=== PATIENT | male | born 1965 | race Caucasian/White ===

== ENCOUNTER 2019-02-11 19:59 | Inpatient (IN) | payer SELFPAY ==
[2019-02-11] VITALS (7 sets, daily range): BP systolic 155–214; BP diastolic 97–115; PULSE 96–130; RESP 18–24; TEMP 37.7–39.7; O2SAT 95–100; BMI 48.0
--- NOTE | 2019-02-11 20:22 | RAD_ITS ---
STUDY: X-RAY CHEST REASON FOR EXAM: Male, 53 years old. Fever. Shortness of breath. TECHNIQUE: Single AP portable view of the chest. COMPARISON: June 14, 2015. FINDINGS: Telemetry wires overlie the chest. The lungs are well expanded. There is no acute infiltrate or mass. There is no demonstrated pleural abnormality. Normal size heart. Normal mediastinum and christi. Normal visualized pulmonary arteries. Normal visualized aortic arch and descending thoracic aorta. The thoracic spine is obscured by the mediastinum. Normal visualized ribs, clavicles, and shoulders. There is no demonstrated abnormality of the visualized soft tissue structures of the upper abdomen. RAD/Chest 1 View (Portable) IMPRESSION: No acute cardiopulmonary disease or interval change. Electronically Signed: Leno Jay DO at 20:47 EDT Tel [phone], Service support ,
--- NOTE | 2019-02-11 20:22 | EKG12_ITS ---
Test Reason : SOB Blood Pressure : / mmHG Vent. Rate : 111 BPM Atrial Rate : 111 BPM P-R Int : 142 ms QRS Dur : 076 ms QT Int : 326 ms P-R-T Axes : 042 014 078 degrees QTc Int : 443 ms Sinus tachycardia Possible Left atrial enlargement Borderline ECG Confirmed by JA CARRIZALES, LEE ([id number]), editor sound VITALY GONGORA ([id number]) on 02/15/2019 11:34:39 AM Referred By: Lee Pennington Confirmed By:LEE PERES MD
[2019-02-11] MEDS: Ipratropium/Albuterol Sulfate 3 ML AMPUL.NEB INHALATION (20:36)
[2019-02-11] MEDS: Acetaminophen 500 MG Tablet 1000 MG PO (20:46)
[2019-02-11] MEDS: 0.9% Normal Saline 1,000 ML 150 ML IV (20:47)
--- NOTE | 2019-02-11 21:22 | ED.VISSUMM ---
- ER Visit Summary Date of Service: 02/11/19 Chief Complaint: Short of breath History of Present Illness: The patient is a 53 M who reports leg swelling and weeping along with shortness of breath for quite some time. Today he had increased cough, nausea and vomiting, and fever. Patient reports a history of reflux disease and hypertension. He does not take any of his prescribed medications. He denies smoking. He does drink 12 pack a day. His last drink was yesterday. Physical Examination: Blood pressure is 203/115, temperature 103.5 TA, heart rate 121, respiratory rate 24, pulse ox 98% on room air. Patient sitting upright in bed no acute distress. He appears ill but not toxic. Head neck examination grossly unremarkable. Heart is tachycardic. Lungs sounds are diminished throughout. Abdomen is soft and distended. No focal tenderness. Lower extreme examination was 3-4+ edema with dry cracked skin and localized wound to each leg. No drainage at this time. Test Results: Portable chest x-ray shows no acute disease. Bilateral tib-fib x-rays show soft tissue swelling. There is no bony change. No gas in the tissues. EKG is sinus tach at 111 with no sign of acute ischemia. CBC reveals white count 11.9 with 90% neutrophils. Platelet count is 109,000. Chemistry studies show sodium of 131. LFTs show total bili 1.4 and a direct bili 0.45. Alk phos is 133. AST is 42. Lipase and coags normal. Lactate is normal at 1.9. Influenza swab is negative. Blood cultures were sent. Emergency Department Course and Treatment: Patient was given Tylenol for fever along with a DuoNeb treatment. He is on nasal cannula at this time for comfort. He is given 20 mg of IV labetalol and repeat blood pressure is 177/97. He is given a dose of IV clindamycin for his legs and given 0.5 mg of Ativan as he is a regular drinker and has not had a drink in 24 hours. At this time patient is having difficulty getting around secondary to the swelling in his legs. He will be admitted overnight for wound care and blood pressure control. Treatment Plan: [] Disposition: Admit Impression: 1. Bilateral lower extremely wounds 2. Hypertensive urgency 3. Fever This note was generated with [employer] dictation software. It may contain incorrect words, spelling, and punctuation that were not noted in review of the chart prior to signing ED Disposition - Plan for ED Patient: Referrals: Care Physician,No Primary [Primary Care Provider] -
[2019-02-11 21:27] LABS: International Normalized Ratio 1.1; Prothrombin Time (Protime)PT. 14.2 SECONDS (11.7-14.9)
[2019-02-11 21:28] LABS: Partial Thromboplast Time 29.3 Seconds (24.1-36.2)
[2019-02-11 21:33] LABS: Absolute Neutrophil Count 10.8 X10^3/uL (2.0-7.7); Basophil# 0.02 X10^3/uL; Basophil% 0.2 % (0-1); Eosinophil# 0.06 X10^3/uL; Eosinophils% 0.5 % (0-5); Hematocrit 42.2 % (40-54); Hemoglobin 14.4 g/dl (13.0-16.5); Lymphocyte % 4.2 % (19-41); Mean Corp Hgb Conc 34.1 g/gl (32-36); Mean Corpuscular Hgb 30.8 pg (27.0-32.0); Mean Corpuscular Volume 90.4 fL (80-94); Mean Platelet Vol. 9.2 fl (6.2-12.0); Monocyte# 0.53 X10^3/uL; Monocyte% 4.4 % (0-10); Neutrophil # 10.79 X10^3/uL (2.7-7.7); Neutrophil % 90.4 % (47-70); Platelet Count 109 K/mm3 (150-450); RBC Distribution Width CV 13.2 % (11.6-14.6); RBC Distribution Width SD 43.2 fl (35.1-43.9); Red Blood Count 4.67 M/mm3 (4.6-6.2); White Blood Count 11.9 K/mm3 (4.4-11.0)
[2019-02-11 21:34] LABS: AST(SGOT) 42 U/L (15-37); Alanine Aminotransfer ALT/SGPT 48 U/L (16-61); Albumin, Serum 3.8 g/dL (3.2-5.0); Alkaline Phosphatase 133 U/L (45-117); Anion Gap 6 (5-15); BUN 10 mg/dL (7-18); BUN/Creat Ratio 8.8 RATIO (10-20); Bilirubin, Direct 0.45 mg/dL (0.00-0.30); Calcium,Total 8.8 mg/dL (8.5-10.1); Chloride 98 mmol/L (98-107); Creatinine, Serum 1.14 mg/dL (0.70-1.30); Differential Indicated SCAN CRITERIA MET; EST Glomerular Filtration Rate 71 mL/min (>60); Est Glom Filt Rate - Afr Amer 86 mL/min (>60); Estimated Creatinine Clearance 62.03 ml/min; Globulin 4.1 g/dL (2.2-4.2); Glucose 113 mg/dL (74-106); Lipase 98 U/L (73-393); POSITIVE COUNT NO; POSITIVE DIFFERENTIAL YES; POSITIVE MORPHOLOGY NO; Potassium 4.4 mmol/L (3.5-5.1); Protein, Total 7.9 g/dL (6.4-8.2); Sodium Level 131 mmol/L (136-145)
--- NOTE | 2019-02-11 21:34 | RAD_ITS ---
STUDY: X-RAY - RIGHT TIBIA AND FIBULA REASON FOR EXAM: Male, 53 years old. Infection. The mid leg with cellulitis. TECHNIQUE: 3 view(s) of the tibia and fibula were obtained. COMPARISON: None. FINDINGS: Normal visualized tibia. Normal visualized fibula. There is no acute fracture, dislocation or destructive osseous pathology. There are degenerative changes knee. The ankle appears intact. There is diffuse soft tissue edema without foreign body. RAD/Tibia & Fibula 2 Views IMPRESSION: Soft tissue edema without underlying osseous or articular abnormality. Electronically Signed: Leno Jay DO at 22:05 EDT Tel [phone], Service support ,
--- NOTE | 2019-02-11 21:34 | RAD_ITS ---
STUDY: X-RAY - LEFT TIBIA AND FIBULA REASON FOR EXAM: Male, 53 years old. Infection in the mid leg. Cellulitis. TECHNIQUE: 3 view(s) of the tibia and fibula were obtained. COMPARISON: None. FINDINGS: Normal visualized tibia. Normal visualized fibula. There is no acute fracture, dislocation or destructive osseous pathology. The knee and ankle appear intact. There is diffuse subcutaneous edema over the leg. There is no opaque foreign body. RAD/Tibia & Fibula 2 Views IMPRESSION: Soft tissue edema over the lower leg without underlying osseous or articular abnormality. Electronically Signed: Leno Jay DO at 22:04 EDT Tel [phone], Service support ,
[2019-02-11] MEDS: LORazepam 2 MG/ML Syringe 0.5 MG IV (21:40)
[2019-02-11 21:54] LABS: Lactic Acid 1.9 mmol/L (0.4-2.0)
[2019-02-11 22:00] LABS: Differential Comment SCANNED
--- NOTE | 2019-02-11 22:56 | PCM.HP.STD ---
Problem List (1) Shortness of breath Status: Acute (2) Elevated blood pressure Status: Acute (3) Hyponatremia Status: Acute (4) Alcohol abuse Status: Chronic (5) Venous stasis dermatitis Status: Acute Qualifiers: Laterality: bilateral Qualified Code(s): I87.2 - Venous insufficiency (chronic) (peripheral) History of Present Illness Date of Admission: 02/11/19 Chief Complaint: shortness of breath The patient is a 53 year old male patient presents to the ER with shortness of breath. He states he has been experiencing shortness of breath for the past several weeks however, today it became worse. He has not been to a doctor in several years. He has chronic conditions that have not been treated including lower extremity swelling and seepage of his legs with chronic appearing sores. He drinks 12-15 beers daily for as long as he can remember and does experience withdrawal symptoms when he stops, his last beer was yesterday. Today he is hypertensive and short of breath requiring oxygen to maintain his pulse oxygenation above 90%. He denies chest pain but he has had nausea. WBC count is 11,000 with a left shift and CXR is negative for pneumonia.He will be admitted to PCU floor for respiratory support and wound care management. He will be placed on alcohol withdrawal protocol. Past Medical History Past Medical History (Chronic Problems): Chronic Problems Alcohol abuse (Chronic) Allergies No Known Allergies Allergy (Verified 02/11/19 20:03) Home Medications: Ambulatory Orders Medication Instructions Recorded NK 02/11/19 Surgical History: no surgical history Psychiatric History: No pertinent psych hx Smoking Status: Never smoker - *Family History Maternal History Items: Heart Disease Paternal History Items: Heart Disease Review of Systems Constitutional: Reports: Fever, Fatigue. Denies: Chills, Weight Change HEENT: Denies: Head Aches, Sinus Congestion, Sinus Drainage Cardiovascular: Denies: Chest Pain, Palpitations Respiratory: Reports: Cough, Shortness of breath at rest. Denies: Sputum production Gastrointestinal: Reports: Nausea. Denies: Abdominal Pain, Vomiting Genitourinary: Denies: Dysuria Musculoskeletal: Reports: Leg Pain. Denies: Joint Pain, Joint Tenderness Skin: Denies: Rash, Wounds Neurological: Denies: Numbness, Tingling, Focal weakness Psychiatric: Denies: Anxiety, Depression, Homicidal Ideations, Suicidal Ideations Hematologic/ Lymphatic: Denies: Easy Bruising, Easy Bleeding VTE Information - Inpt Only VTE Present on Admission: No VTE Mechan Device Prophylaxis: None VTE Pharm Prophylaxis ordered?: Yes Patient Problems: Active and Suspected Problems Shortness of breath (Acute) Venous stasis dermatitis (Acute) - Physical Exam General: Alert, Oriented x3, Cooperative HEENT: Atraumatic, Normocephalic Neck: Supple Lungs: Clear to auscultation, Diminished Cardiovascular: Regular rate, Normal S1, Normal S2, No murmurs Abdomen: Bowel Sounds Present, Soft, Non Tender, Obese Extremities: No edema, Capillary Refill Less than 3 Seconds Skin: Ulcer/ Wound - bilate lower ext 3 + edema with stasis dermatitis with central skin cracking/ulcer and serous drainage Musculoskeletal: Tenderness Neurological: Neuro grossly intact Psych/Mental Status: Normal Affect, Appropriate Vital Signs Temp Pulse Resp BP Pulse Ox 99.8 F H 100 18 177/97 H 98 02/11/19 22:00 02/11/19 22:00 02/11/19 22:00 02/11/19 22:00 02/11/19 22:00 Oxygen Flow Rate (L/min) 2 Oxygen Delivery Method Nasal Cannula Weight: 279 lb 15.793 oz Body Mass Index (BMI) 48.0 Microbiology Past 72 Hours 02/11/19 20:30 Influenza Types A,B Direct FA (SOCO) - Final Mucosa - Nasopharyngeal Laboratory Tests Past 24 Hrs 02/11/19 02/11/19 02/11/19 21:05 21:05 21:05 WBC 11.9 H RBC 4.67 Hgb 14.4 Hct 42.2 MCV 90.4 MCH 30.8 MCHC 34.1 RDW 13.2 RDW Differential 43.2 Plt Count 109 L MPV 9.2 Immature Gran % (Auto) 0.300 Neut % (Auto) 90.4 H Lymph % (Auto) 4.2 L [place] % (Auto) 4.4 Eos % (Auto) 0.5 Baso % (Auto) 0.2 Absolute Neuts (auto) 10.8 H Absolute Lymphs (auto) 0.50 L Total Counted Not Reportable Differential Comment SCANNED PT 14.2 INR 1.1 APTT 29.3 Sodium 131 L Potassium 4.4 Chloride 98 Carbon Dioxide 27.0 Anion Gap 6 BUN 10 Creatinine 1.14 Estim Creat Clear Calc 62.03 Est GFR (MDRD) Af Amer 86 Est GFR (MDRD) Non-Af 71 BUN/Creatinine Ratio 8.8 L Glucose 113 H Lactic Acid Calcium 8.8 Total Bilirubin 1.40 H Direct Bilirubin 0.45 H AST 42 H ALT 48 Alkaline Phosphatase 133 H Total Protein 7.9 Albumin 3.8 Globulin 4.1 Lipase 98 02/11/19 21:05 WBC RBC Hgb Hct MCV MCH MCHC RDW RDW Differential Plt Count MPV Immature Gran % (Auto) Neut % (Auto) Lymph % (Auto) [place] % (Auto) Eos % (Auto) Baso % (Auto) Absolute Neuts (auto) Absolute Lymphs (auto) Total Counted Differential Comment PT INR APTT Sodium Potassium Chloride Carbon Dioxide Anion Gap BUN Creatinine Estim Creat Clear Calc Est GFR (MDRD) Af Amer Est GFR (MDRD) Non-Af BUN/Creatinine Ratio Glucose Lactic Acid 1.9 Calcium Total Bilirubin Direct Bilirubin AST ALT Alkaline Phosphatase Total Protein Albumin Globulin Lipase Assessment/Plan All Active Problems Shortness of breath (Acute) Venous stasis dermatitis (Acute) Elevated blood pressure (Acute) Hyponatremia (Acute) Chest pain (Acute) Chronic Problems Alcohol abuse (Chronic) Plan 1. Shortness of breath- admit to PCU, levaquin 500mg IV q day, duoneb ing q 4 hrs continue oxygen protocol, repeat CBC, BMP in am, maintain IV normal saline at 100cc/ hr to assist with hyponatremia and dehydration 2. Alcohol abuse-- initiate alcohol withdrawal protocol- (he is not motivated to stop drinking.) 3. HTN- hydralazine 20mg IV q 6 hrs prn BP>160/100 4. Lower extremity edema- lasix 20mg IV q day, wound care team to assess 5. DVT prophylaxis- LMWH Code Visit Inpatient E&M: 08437 Init Hosp L3
[2019-02-12] VITALS (17 sets, daily range): BP systolic 139–162; BP diastolic 79–90; PULSE 71–92; RESP 18–22; TEMP 36.7–37.8; O2SAT 94–98; BMI 44.4; BMI 48.1
[2019-02-12] MEDS: levoFLOXacin IV 500 MG/100 ML BAG 100 MG IV (02:07)
[2019-02-12] MEDS: 0.9% Normal Saline 1,000 ML 100 ML IV (06:07)
[2019-02-12 06:45] LABS: Hematocrit 38.6 % (40-54); Hemoglobin 12.8 g/dl (13.0-16.5); Mean Corp Hgb Conc 33.2 g/gl (32-36); Mean Corpuscular Hgb 30.5 pg (27.0-32.0); Mean Corpuscular Volume 92.1 fL (80-94); Mean Platelet Vol. 9.4 fl (6.2-12.0); Platelet Count 118 K/mm3 (150-450); RBC Distribution Width CV 13.3 % (11.6-14.6); RBC Distribution Width SD 44.3 fl (35.1-43.9); Red Blood Count 4.19 M/mm3 (4.6-6.2); White Blood Count 16.3 K/mm3 (4.4-11.0)
[2019-02-12 06:47] LABS: Scan Indicated on CBC? Y/N NO
[2019-02-12 06:54] LABS: Anion Gap 9 (5-15); BUN 12 mg/dL (7-18); BUN/Creat Ratio 9.9 RATIO (10-20); Calcium,Total 8.7 mg/dL (8.5-10.1); Chloride 99 mmol/L (98-107); Creatinine, Serum 1.21 mg/dL (0.70-1.30); EST Glomerular Filtration Rate 66 mL/min (>60); Est Glom Filt Rate - Afr Amer 80 mL/min (>60); Estimated Creatinine Clearance 62.98 ml/min; Glucose 114 mg/dL (74-106); Potassium 4.7 mmol/L (3.5-5.1); Sodium Level 134 mmol/L (136-145)
[2019-02-12] MEDS: Folic Acid 1 MG Tablet PO (09:44)
[2019-02-12] MEDS: Enoxaparin 40 MG/0.4 ML Syringe SC (09:44)
[2019-02-12] MEDS: Thiamine Hydrochloride 100 MG Tablet PO ×2 (09:44→17:55)
--- NOTE | 2019-02-12 10:07 | NURSING ---
wound photo: left lower leg
--- NOTE | 2019-02-12 10:08 | NURSING ---
wound photo: right lower leg
[2019-02-12] MEDS: Cefazolin 2 GM in 0.9% Normal Saline 100 ML IV ×2 (11:03→21:41)
--- NOTE | 2019-02-12 11:30 | CASEMGMT ---
CHRISTINE BERKOWITZ assessment: Face to Face with patient for initial transition planning/care coordination assessment. CHRISTINE BERKOWITZ introduced self and role at [facility], pt voices understanding and consents to assessment at this time. Pt is sitting up in bed in no distress at this time. Pt is A/Ox4 at this time and answers all questions appropriately at this time. Care providers, pharmacy, and demographics verified at this time. PCP: Pt states does not have a PCP but would like a list of local PCP's and that is provided at this time. Specialists: Pt states no current specialists. [facility]erred [facility]acy: [facility] Insurance: Pt states that his employer does not offer health insurance and he has never had it. Prescription Benefit: None Living Will/HPOA: Pt states does not have LW/HPOA and declines info at this time. Pt states 'my daughter takes care of those things.' LNOK: Tanika Simmons, daughter Living Arrangements: Pt states lives in 2 story home with adult daughter and his father. Pt states no concerns at home at this time. Pt states is independent with ADL's. Transportation: Pt states that he does not drive that his friend drives him to and from work and pt states no transportation concerns at this time. DME/HHC: Pt states no current DME or need for any at this time. Pt states no hx of HHC or SNF in the past. Pt states no concerns with going home at time of discharge. 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 Pt states does not smoke but does drink 12-15 beers daily. Pt declines resources/assistance for alcohol abuse at this time. Pt states no further concerns/needs at this time. CM to follow for any further discharge planning/needs. Advised pt to ask for CM if any further questions/concerns/needs arise, voices understanding Plan: [place] CHRISTINE BERKOWITZ
--- NOTE | 2019-02-12 13:53 | ECHOCS_ITS ---
Reason For Study: SOB Procedure This was a 2D Doppler, Color Flow transthoracic echocardiogram. The study was technically difficult. Exam performed portable in patient room. Left Ventricle Normal size and thickness. The estimated ejection fraction is 65 %. Normal diastology for age. No regional wall motion abnormalities noted. Right Ventricle Normal size and thickness. Normal systolic function. Atria Normal left atrium. Normal right atrium. Normal atrial septum. Mitral Valve The mitral valve is structurally normal. No prolapse or stenosis seen. Tricuspid Valve Normal tricuspid valve. Unable to estimate RV systolic pressure due to inadequate jet, pulmonary artery pressure probably normal. Aortic Valve Normal aortic valve. Trisinus/trileaflet aortic valve. Pulmonic Valve The pulmonic valve is not well visualized. Great Vessels Normal aortic root. Normal arch. Normal inferior vena cava. Inferior vena cava collapse with respiration. Pericardium/Pleural No pericardial effusion. Medication Diluted definity 3ml given slow IV push to enhance endocardial definition. MMode/2D Measurements & Calculations LVIDd: 4.4 cm IVSd: 1.3 cm Ao root diam: 3.1 cm LVIDs: 2.9 cm LVPWd: 1.5 cm FS: 34.6 % LA dimension(2D): 4.2 cm Doppler Measurements & Calculations MV E max areli: 118.3 cm/sec Ao V2 max: 179.0 cm/sec LV V1 max: 113.5 cm/sec MV A max areli: 89.8 cm/sec Ao max P.8 mmHg LV V1 max P.2 mmHg MV E/A: 1.3 PA V2 max: 137.5 cm/sec Interpretation Summary The estimated ejection fraction is 65 %. Normal diastology for age. Unable to estimate RV systolic pressure due to inadequate jet, pulmonary artery pressure probably normal. The study was technically difficult. Contrast injection was performed. There is no comparison study available. Ordering Physician: OZZY Ravi Referring Physician: Lee Pennington Performed By: Sierra Del Angel RDCS
--- NOTE | 2019-02-12 13:54 | PN_ITS ---
<Jeannette Payton - Last Filed: 02/12/19 13:54> Patient Problems: Active and Suspected Problems Shortness of breath (Acute) Venous stasis dermatitis (Acute) Subjective: Patient seen and examined. Reports he feels much better. Shortness of breath improved. - Physical Exam General: Alert, Oriented x3, Cooperative HEENT: Atraumatic, PERRLA, EOMI, Normocephalic Neck: Supple, No JVD, Negative Carotid Bruits Lungs: Clear to auscultation, Diminished Cardiovascular: Regular rate, Regular Rhythm, Normal S1, Normal S2, No murmurs Abdomen: Bowel Sounds Present, Soft, Non Tender, Non-Distended, Obese Extremities: No clubbing, No cyanosis, Capillary Refill Less than 3 Seconds, Edema - BLLE Skin: - - Bilateral lower extremity wounds, chronic. Clement wraps intact. Musculoskeletal: No Tenderness to Palpation of Joints or Extremities Neurological: Cranial nerves II-XII grossly intact, Neuro grossly intact Psych/Mental Status: Normal Affect, Appropriate Vital Signs Temp Pulse Resp BP Pulse Ox 99.8 F H 91 22 H 140/90 H 96 02/12/19 12:16 02/12/19 12:16 02/12/19 12:16 02/12/19 12:16 02/12/19 12:16 Oxygen Flow Rate (L/min) 2 Oxygen Delivery Method Room Air Weight: 274 lb 14.663 oz Body Mass Index (BMI) 44.4 Intake and Output for Last 24 Hours 02/10/19 02/11/19 02/12/19 23:59 23:59 23:59 Intake Total 1572 / 1572 Output Total 1000 / 1000 Balance 572 / 572 Microbiology Past 72 Hours 02/12/19 08:45 Gram Stain - Final Wound - Leg, Right 02/11/19 21:05 Blood Culture - Preliminary Blood Culture (Wb) - Venous 02/11/19 21:00 Blood Culture - Preliminary Blood Culture (Wb) - Anticubital Left 02/11/19 20:30 Influenza Types A,B Direct FA (SOCO) - Final Mucosa - Nasopharyngeal Laboratory Tests Past 24 Hrs 02/11/19 02/11/19 02/11/19 21:05 21:05 21:05 WBC 11.9 H RBC 4.67 Hgb 14.4 Hct 42.2 MCV 90.4 MCH 30.8 MCHC 34.1 RDW 13.2 RDW Differential 43.2 Plt Count 109 L MPV 9.2 Immature Gran % (Auto) 0.300 Neut % (Auto) 90.4 H Lymph % (Auto) 4.2 L [place] % (Auto) 4.4 Eos % (Auto) 0.5 Baso % (Auto) 0.2 Absolute Neuts (auto) 10.8 H Absolute Lymphs (auto) 0.50 L Total Counted Not Reportable Differential Comment SCANNED PT 14.2 INR 1.1 APTT 29.3 Sodium 131 L Potassium 4.4 Chloride 98 Carbon Dioxide 27.0 Anion Gap 6 BUN 10 Creatinine 1.14 Estim Creat Clear Calc 62.03 Est GFR (MDRD) Af Amer 86 Est GFR (MDRD) Non-Af 71 BUN/Creatinine Ratio 8.8 L Glucose 113 H Lactic Acid Calcium 8.8 Total Bilirubin 1.40 H Direct Bilirubin 0.45 H AST 42 H ALT 48 Alkaline Phosphatase 133 H Total Protein 7.9 Albumin 3.8 Globulin 4.1 Lipase 98 02/11/19 02/12/19 02/12/19 21:05 06:05 06:05 WBC 16.3 H RBC 4.19 L Hgb 12.8 L Hct 38.6 L MCV 92.1 MCH 30.5 MCHC 33.2 RDW 13.3 RDW Differential 44.3 H Plt Count 118 L MPV 9.4 Immature Gran % (Auto) Neut % (Auto) Lymph % (Auto) [place] % (Auto) Eos % (Auto) Baso % (Auto) Absolute Neuts (auto) Absolute Lymphs (auto) Total Counted Differential Comment PT INR APTT Sodium 134 L Potassium 4.7 Chloride 99 Carbon Dioxide 26.0 Anion Gap 9 BUN 12 Creatinine 1.21 Estim Creat Clear Calc 62.98 Est GFR (MDRD) Af Amer 80 Est GFR (MDRD) Non-Af 66 BUN/Creatinine Ratio 9.9 L Glucose 114 H Lactic Acid 1.9 Calcium 8.7 Total Bilirubin Direct Bilirubin AST ALT Alkaline Phosphatase Total Protein Albumin Globulin Lipase Medical Necessity - Tobacco Use Smoking Status: Never smoker Tobacco Use: Non-smoker Assessment/Plan All Active Problems Shortness of breath (Acute) Venous stasis dermatitis (Acute) Elevated blood pressure (Acute) Hyponatremia (Acute) Chest pain (Acute) 1. Gram positive bacteremia suspected secondary to chronic lower extremity wounds with venous stasis dermatitis-blood culture with gram-positive cocci, preliminary. Wound culture preliminary showing 2+ gram-positive cocci. Tibia/fibula x-ray with soft tissue edema over the lower leg without underlying osseous or articular abnormality. IV Ancef. Wound RN consult. Follow cultures. Patient will need outpatient follow-up with wound center. 2. Dyspnea-suspect secondary to hypertensive urgency. Improved. Given chronic lower extremity swelling, obtain echocardiogram and check BNP. Chest x-ray admission with no acute process. 3. Hypertensive urgency-blood pressure greater than 200 systolically on admission. He has not followed with primary care physician in a long time. Begin lisinopril 10 mg daily. Continue as needed hydralazine for systolic blood pressure greater than 160. 4. Chronic alcohol abuse-patient does not desire to quit using alcohol. Continue beer therapy to avoid etoh withdrawal. Continue thiamine, folic acid and multivitamin supplementation. 5. Obesity-encouraged diet lifestyle modifications. DVT prophylaxis- Lovenox sc. This patient was seen by OZZY Ravi under the supervision of Dr. Morrison. <Christian Morrison F - Last Filed: 02/12/19 16:53> - Physical Exam Vital Signs Temp Pulse Resp BP Pulse Ox 100 F H 89 18 155/81 H 94 02/12/19 15:40 02/12/19 16:40 02/12/19 15:40 02/12/19 15:40 02/12/19 15:40 Oxygen Flow Rate (L/min) 2 Oxygen Delivery Method Room Air Weight: 274 lb 14.663 oz Body Mass Index (BMI) 44.4 Intake and Output for Last 24 Hours 02/10/19 02/11/19 02/12/19 23:59 23:59 23:59 Intake Total 1572 / 1572 Output Total 1000 / 1000 Balance 572 / 572 Microbiology Past 72 Hours 02/11/19 21:00 Blood Culture - Preliminary Blood Culture (Wb) - Anticubital Left 02/12/19 08:45 Gram Stain - Final Wound - Leg, Right 02/11/19 21:05 Blood Culture - Preliminary Blood Culture (Wb) - Venous 02/11/19 20:30 Influenza Types A,B Direct FA (SOCO) - Final Mucosa - Nasopharyngeal Laboratory Tests Past 24 Hrs 02/11/19 02/11/19 02/11/19 21:05 21:05 21:05 WBC 11.9 H RBC 4.67 Hgb 14.4 Hct 42.2 MCV 90.4 MCH 30.8 MCHC 34.1 RDW 13.2 RDW Differential 43.2 Plt Count 109 L MPV 9.2 Immature Gran % (Auto) 0.300 Neut % (Auto) 90.4 H Lymph % (Auto) 4.2 L [place] % (Auto) 4.4 Eos % (Auto) 0.5 Baso % (Auto) 0.2 Absolute Neuts (auto) 10.8 H Absolute Lymphs (auto) 0.50 L Total Counted Not Reportable Differential Comment SCANNED PT 14.2 INR 1.1 APTT 29.3 Sodium 131 L Potassium 4.4 Chloride 98 Carbon Dioxide 27.0 Anion Gap 6 BUN 10 Creatinine 1.14 Estim Creat Clear Calc 62.03 Est GFR (MDRD) Af Amer 86 Est GFR (MDRD) Non-Af 71 BUN/Creatinine Ratio 8.8 L Glucose 113 H Lactic Acid Calcium 8.8 Total Bilirubin 1.40 H Direct Bilirubin 0.45 H AST 42 H ALT 48 Alkaline Phosphatase 133 H B-Natriuretic Peptide Total Protein 7.9 Albumin 3.8 Globulin 4.1 Lipase 98 02/11/19 02/12/19 02/12/19 21:05 06:05 06:05 WBC 16.3 H RBC 4.19 L Hgb 12.8 L Hct 38.6 L MCV 92.1 MCH 30.5 MCHC 33.2 RDW 13.3 RDW Differential 44.3 H Plt Count 118 L MPV 9.4 Immature Gran % (Auto) Neut % (Auto) Lymph % (Auto) [place] % (Auto) Eos % (Auto) Baso % (Auto) Absolute Neuts (auto) Absolute Lymphs (auto) Total Counted Differential Comment PT INR APTT Sodium 134 L Potassium 4.7 Chloride 99 Carbon Dioxide 26.0 Anion Gap 9 BUN 12 Creatinine 1.21 Estim Creat Clear Calc 62.98 Est GFR (MDRD) Af Amer 80 Est GFR (MDRD) Non-Af 66 BUN/Creatinine Ratio 9.9 L Glucose 114 H Lactic Acid 1.9 Calcium 8.7 Total Bilirubin Direct Bilirubin AST ALT Alkaline Phosphatase B-Natriuretic Peptide Total Protein Albumin Globulin Lipase 02/12/19 06:05 WBC RBC Hgb Hct MCV MCH MCHC RDW RDW Differential Plt Count MPV Immature Gran % (Auto) Neut % (Auto) Lymph % (Auto) [place] % (Auto) Eos % (Auto) Baso % (Auto) Absolute Neuts (auto) Absolute Lymphs (auto) Total Counted Differential Comment PT INR APTT Sodium Potassium Chloride Carbon Dioxide Anion Gap BUN Creatinine Estim Creat Clear Calc Est GFR (MDRD) Af Amer Est GFR (MDRD) Non-Af BUN/Creatinine Ratio Glucose Lactic Acid Calcium Total Bilirubin Direct Bilirubin AST ALT Alkaline Phosphatase B-Natriuretic Peptide 212.8 H Total Protein Albumin Globulin Lipase Code Visit Addendum: Dr. Morrison I personally examined the patient and reviewed the chart. I agree with the above. 53-year-old male who sees no doctor and has no home medication presents with shortness of breath. He has chronic venous stasis changes as well as edema on both legs. He has an open wound on his right leg and he came back positive with gram-positive cocci in chains in both blood cultures. We will transition his antibiotics to Ancef and continue to monitor. He also drinks 12-15 beers a day and therefore will be started on 3 beers 3 times daily while here since he has no intention of quitting alcohol use. Inpatient E&M: 24023 Subs Hosp L2
[2019-02-12 14:14] LABS: BNP,B-Type NATRIURETIC PEPTIDE 212.8 pg/mL (0-100)
[2019-02-12] MEDS: Lisinopril 10 MG Tablet PO (14:17)
[2019-02-12] MEDS: 0.9% NaCl Peripheral Flush Adult/Peds IV (14:18)
--- NOTE | 2019-02-12 16:18 | NURSING ---
agree with assessments by student nurse pedro parker.
[2019-02-12] MEDS: Acetaminophen 325 MG Tablet 650 MG PO (20:11)
[2019-02-13] VITALS (16 sets, daily range): BP systolic 149–176; BP diastolic 77–100; PULSE 80–91; RESP 16–18; TEMP 36.9–37.6; O2SAT 95–97
[2019-02-13] MEDS: Cefazolin 2 GM in 0.9% Normal Saline 100 ML IV ×3 (05:57→21:57)
[2019-02-13 06:15] LABS: Hematocrit 36.6 % (40-54); Hemoglobin 11.9 g/dl (13.0-16.5); Mean Corp Hgb Conc 32.5 g/gl (32-36); Mean Corpuscular Hgb 30.1 pg (27.0-32.0); Mean Corpuscular Volume 92.4 fL (80-94); Mean Platelet Vol. 8.9 fl (6.2-12.0); Platelet Count 98 K/mm3 (150-450); RBC Distribution Width CV 13.4 % (11.6-14.6); RBC Distribution Width SD 45.3 fl (35.1-43.9); Red Blood Count 3.96 M/mm3 (4.6-6.2); White Blood Count 10.1 K/mm3 (4.4-11.0)
[2019-02-13 06:29] LABS: Scan Indicated on CBC? Y/N NO
[2019-02-13 06:37] LABS: Anion Gap 7 (5-15); BUN 13 mg/dL (7-18); BUN/Creat Ratio 12.6 RATIO (10-20); Calcium,Total 8.4 mg/dL (8.5-10.1); Chloride 102 mmol/L (98-107); Creatinine, Serum 1.03 mg/dL (0.70-1.30); EST Glomerular Filtration Rate 80 mL/min (>60); Est Glom Filt Rate - Afr Amer 97 mL/min (>60); Estimated Creatinine Clearance 73.99 ml/min; Glucose 103 mg/dL (74-106); Potassium 4.3 mmol/L (3.5-5.1); Sodium Level 133 mmol/L (136-145)
[2019-02-13] MEDS: Enoxaparin 40 MG/0.4 ML Syringe SC (08:08)
[2019-02-13] MEDS: Thiamine Hydrochloride 100 MG Tablet PO ×2 (08:09→17:12)
[2019-02-13] MEDS: Folic Acid 1 MG Tablet PO (08:09)
[2019-02-13] MEDS: Lisinopril 10 MG Tablet PO (08:09)
[2019-02-13] MEDS: Acetaminophen 325 MG Tablet 650 MG PO ×2 (08:11→21:58)
[2019-02-13] MEDS: hydrALAZINE 20 MG/ML Vial IV ×2 (08:11→17:29)
[2019-02-13] MEDS: 0.9% NaCl Peripheral Flush Adult/Peds IV ×2 (13:55→21:58)
--- NOTE | 2019-02-13 14:02 | PCM.PROGNOTE ---
<Jeannette Payton - Last Filed: 02/13/19 14:15> Patient Problems: Active and Suspected Problems Shortness of breath (Acute) Venous stasis dermatitis (Acute) Subjective: Patient seen and examined. Complains of feeling sweaty this morning. Shortness of breath improved. Denies other current complaints. - Physical Exam General: Alert, Oriented x3, Cooperative HEENT: Atraumatic, PERRLA, EOMI, Normocephalic Neck: Supple, No JVD, Negative Carotid Bruits Lungs: Clear to auscultation, Diminished Cardiovascular: Regular rate, Regular Rhythm, Normal S1, Normal S2, No murmurs Abdomen: Bowel Sounds Present, Soft, Non Tender, Non-Distended, Obese Extremities: No clubbing, No cyanosis, Capillary Refill Less than 3 Seconds, Edema - BLLE Skin: - - Bilateral lower extremity wounds, chronic with chronic stasis dermatitis. Clement wraps intact. Musculoskeletal: No Tenderness to Palpation of Joints or Extremities Neurological: Cranial nerves II-XII grossly intact, Neuro grossly intact Psych/Mental Status: Normal Affect, Appropriate Vital Signs Temp Pulse Resp BP Pulse Ox 98.4 F 88 18 149/77 H 97 02/13/19 11:01 02/13/19 11:01 02/13/19 11:01 02/13/19 11:01 02/13/19 11:01 Oxygen Flow Rate (L/min) 2 Oxygen Delivery Method Room Air Weight: 274 lb 14.663 oz Body Mass Index (BMI) 44.4 Intake and Output for Last 24 Hours 02/11/19 02/12/19 02/13/19 23:59 23:59 23:59 Intake Total 2816 / 2816 350 / 350 Output Total 1000 / 1000 Balance 1816 / 1816 350 / 350 Microbiology Past 72 Hours 02/11/19 21:05 Blood Culture - Preliminary Blood Culture (Wb) - Venous Streptococcus group G 02/11/19 21:00 Bacteria Detection (PCR) - Final Blood Culture (Wb) - Anticubital Left Strep not Strep pneumo Blood Culture - Preliminary Streptococcus group G 02/12/19 08:45 Gram Stain - Final Wound - Leg, Right 02/11/19 20:30 Influenza Types A,B Direct FA (SOCO) - Final Mucosa - Nasopharyngeal Laboratory Tests Past 24 Hrs 02/12/19 02/13/19 02/13/19 06:05 06:00 06:00 WBC 10.1 RBC 3.96 L Hgb 11.9 L Hct 36.6 L MCV 92.4 MCH 30.1 MCHC 32.5 RDW 13.4 RDW Differential 45.3 H Plt Count 98 L MPV 8.9 Sodium 133 L Potassium 4.3 Chloride 102 Carbon Dioxide 24.0 Anion Gap 7 BUN 13 Creatinine 1.03 Estim Creat Clear Calc 73.99 Est GFR (MDRD) Af Amer 97 Est GFR (MDRD) Non-Af 80 BUN/Creatinine Ratio 12.6 Glucose 103 Calcium 8.4 L B-Natriuretic Peptide 212.8 H Medical Necessity - Tobacco Use Smoking Status: Never smoker Tobacco Use: Non-smoker Assessment/Plan All Active Problems Shortness of breath (Acute) Venous stasis dermatitis (Acute) Elevated blood pressure (Acute) Hyponatremia (Acute) Chest pain (Acute) 1. Streptococcus G bacteremia secondary to chronic lower extremity wounds with venous stasis dermatitis-blood culture grew Streptococcus group G. Wound culture preliminary showing 2+ gram-positive cocci. Tibia/fibula x-ray with soft tissue edema over the lower leg without underlying osseous or articular abnormality. IV Ancef. Wound RN consult. Follow cultures. Patient will need outpatient follow-up with wound center. Leukocytosis resolved. Fever improving. 2. Dyspnea-suspect secondary to hypertensive urgency. Improved. Given chronic lower extremity swelling, echocardiogram obtained which showed an EF of 65%. Chest x-ray admission with no acute process. Shortness of breath resolved. 3. Hypertensive urgency-blood pressure greater than 200 systolically on admission. He has not followed with primary care physician in a long time. Begin lisinopril 10 mg daily. Continue as needed hydralazine for systolic blood pressure greater than 160. 4. Chronic alcohol abuse-patient does not desire to quit using alcohol. Continue beer therapy to avoid ETOH withdrawal. Continue thiamine, folic acid and multivitamin supplementation. 5. Obesity-encouraged diet lifestyle modifications. DVT prophylaxis- Lovenox sc. This patient was seen by OZZY Ravi under the supervision of Dr. Morrison. <Christian Morrison F - Last Filed: 02/13/19 15:26> - Physical Exam Vital Signs Temp Pulse Resp BP Pulse Ox 98.7 F 84 18 168/90 H 97 02/13/19 14:37 02/13/19 14:37 02/13/19 14:37 02/13/19 14:37 02/13/19 14:37 Oxygen Flow Rate (L/min) 2 Oxygen Delivery Method Room Air Weight: 274 lb 14.663 oz Body Mass Index (BMI) 44.4 Intake and Output for Last 24 Hours 02/11/19 02/12/19 02/13/19 23:59 23:59 23:59 Intake Total 2816 / 2816 350 / 350 Output Total 1000 / 1000 Balance 1816 / 1816 350 / 350 Microbiology Past 72 Hours 02/11/19 21:05 Blood Culture - Preliminary Blood Culture (Wb) - Venous Streptococcus group G 02/11/19 21:00 Bacteria Detection (PCR) - Final Blood Culture (Wb) - Anticubital Left Strep not Strep pneumo Blood Culture - Preliminary Streptococcus group G 02/12/19 08:45 Gram Stain - Final Wound - Leg, Right 02/11/19 20:30 Influenza Types A,B Direct FA (SOCO) - Final Mucosa - Nasopharyngeal Laboratory Tests Past 24 Hrs 02/13/19 02/13/19 06:00 06:00 WBC 10.1 RBC 3.96 L Hgb 11.9 L Hct 36.6 L MCV 92.4 MCH 30.1 MCHC 32.5 RDW 13.4 RDW Differential 45.3 H Plt Count 98 L MPV 8.9 Sodium 133 L Potassium 4.3 Chloride 102 Carbon Dioxide 24.0 Anion Gap 7 BUN 13 Creatinine 1.03 Estim Creat Clear Calc 73.99 Est GFR (MDRD) Af Amer 97 Est GFR (MDRD) Non-Af 80 BUN/Creatinine Ratio 12.6 Glucose 103 Calcium 8.4 L Code Visit Addendum: Dr. Morrison I personally examined the patient and reviewed the chart. I agree with the above. 53-year-old male with no previous medical history presenting with bilateral lower extremity edema and ulceration on his right leg. He came back positive for group G strep in his blood and his wound and is currently on Ancef with resolving fever and a resolving white count. Continue to encourage alcohol cessation. Inpatient E&M: 69428 Subs Hosp L2
[2019-02-13] MEDS: Carvedilol 3.125 MG TABLET PO (21:58)
[2019-02-14 03:00] VITALS: PULSE 74
[2019-02-14 03:45] VITALS: BP 155/93; PULSE 84; RESP 16; TEMP 36.9; O2SAT 94
[2019-02-14] MEDS: 0.9% NaCl Peripheral Flush Adult/Peds IV (05:37)
[2019-02-14] MEDS: Cefazolin 2 GM in 0.9% Normal Saline 100 ML IV (05:37)
[2019-02-14 06:20] LABS: Hematocrit 36.9 % (40-54); Hemoglobin 12.2 g/dl (13.0-16.5); Mean Corp Hgb Conc 33.1 g/gl (32-36); Mean Corpuscular Hgb 30.3 pg (27.0-32.0); Mean Corpuscular Volume 91.6 fL (80-94); Mean Platelet Vol. 9.5 fl (6.2-12.0); Platelet Count 124 K/mm3 (150-450); RBC Distribution Width CV 13.3 % (11.6-14.6); Red Blood Count 4.03 M/mm3 (4.6-6.2); White Blood Count 9.7 K/mm3 (4.4-11.0)
[2019-02-14 06:26] LABS: Scan Indicated on CBC? Y/N NO
[2019-02-14 06:30] LABS: Anion Gap 8 (5-15); BUN 12 mg/dL (7-18); BUN/Creat Ratio 12.8 RATIO (10-20); Calcium,Total 8.5 mg/dL (8.5-10.1); Chloride 104 mmol/L (98-107); Creatinine, Serum 0.94 mg/dL (0.70-1.30); EST Glomerular Filtration Rate 89 mL/min (>60); Est Glom Filt Rate - Afr Amer 108 mL/min (>60); Estimated Creatinine Clearance 81.07 ml/min; Glucose 98 mg/dL (74-106); Potassium 3.9 mmol/L (3.5-5.1); Sodium Level 136 mmol/L (136-145)
[2019-02-14 07:28] VITALS: PULSE 74
[2019-02-14 09:26] VITALS: BP 139/76; PULSE 84; RESP 18; TEMP 36.9; O2SAT 95
[2019-02-14] MEDS: Acetaminophen 325 MG Tablet 650 MG PO (09:33)
[2019-02-14] MEDS: Thiamine Hydrochloride 100 MG Tablet PO (09:34)
[2019-02-14] MEDS: Folic Acid 1 MG Tablet PO (09:34)
[2019-02-14] MEDS: Enoxaparin 40 MG/0.4 ML Syringe SC (09:37)
[2019-02-14] MEDS: Carvedilol 3.125 MG TABLET PO (09:37)
[2019-02-14] MEDS: Lisinopril 10 MG Tablet PO (09:37)
--- NOTE | 2019-02-14 10:29 | DCINST_ITS ---
- Discharge Diagnoses Current Active Problems: Current Active and Chronic Problems Shortness of breath (Acute) Venous stasis dermatitis (Acute) You will use the following diet at home:: Calorie/Carbohydrate Controlled (specify 1200, 1400, etc), Cardiac Your food should be the consistency of: Regular Your liquids should be the consistency of: Regular/Thin Discharge Activity: Return to Normal Activity Call your doctor if your incision/area has: Foul Smelling Discharge Call your doctor if you observe: Fever of 101 or Higher, Shortness of breath, Dizziness, Fainting spells, Swelling in the ankles, Chest pain, Increased palpitations (irregular heartbeat) Allergies/Adverse Reactions: Allergies No Known Allergies Allergy (Verified 02/11/19 20:03) Medications to take at Discharge Carvedilol [Coreg] 3.125 mg PO BID #60 tablet 02/14/19 Cephalexin [Keflex] 500 mg PO Q6 #48 capsule 02/14/19 Lisinopril [Prinivil] 10 mg PO DAILY #30 tablet 02/14/19 The following prescriptions were given: Cephalexin [Keflex] 500 mg PO Q6 #48 capsule Lisinopril [Prinivil] 10 mg PO DAILY #30 tablet Carvedilol [Coreg] 3.125 mg PO BID #60 tablet Primary Care Physician: Care Physician,No Primary [Primary Care Provider] - Please follow up with your Primary Care Physician in: 3-5 days Test Results: Test results from this visit will be discussed in further detail at your follow- up appointment, if applicable.
[2019-02-14 10:59] VITALS: PULSE 76
--- NOTE | 2019-02-14 11:09 | CASEMGMT ---
Per Leanne, wound nurse, pt will really only need lotion and jabier wraps on legs at d/c. Pt states that his daughter would be able to help with that and Leanne states that she will send him home with some new jabier wraps as well as the ones on bilat legs. Pt voices no further questions/concerns/needs at this time. Elana KING updated on all at this time and voices understanding. Stefanie KING CM
--- NOTE | 2019-02-14 11:48 | PHA.DC.MC ---
Pharmacy Service has performed discharge medication reconciliation and counseling for this patient. The patient's discharge medication list was reviewed for discrepancies and discrepancies were resolved. The patient was counseled on the following discharge medications and changes in medications for homegoing were reviewed. 1. KEFLEX 2. COREG 3. LISINOPRIL The Reason for Use, instructions for use, and potential side effects were reviewed for all new medications. The patient's questions regarding all of their medications were answered. The patient demonstrated some understanding but would benefit from further education and reinforcement. Home Medications Carvedilol [Coreg] 3.125 mg PO BID #60 tablet 02/14/19 Cephalexin [Keflex] 500 mg PO Q6 #48 capsule 02/14/19 Lisinopril [Prinivil] 10 mg PO DAILY #30 tablet 02/14/19
--- NOTE | 2019-02-14 12:21 | PCM.DC.SUM ---
Discharge Date and Diagnosis - Problem List Patient Problems: Active and Suspected Problems Shortness of breath (Acute) Venous stasis dermatitis (Acute) Date of Admission: 02/11/19 Date of Discharge: 02/14/19 - Primary Discharge Diagnosis Active and Suspected Problems Shortness of breath (Acute) Venous stasis dermatitis (Acute) - Secondary Discharge Diagnosis Chronic Problems Alcohol abuse (Chronic) Hospital Course and Treatment Imaging Results: L Tib/Fib XR: IMPRESSION: Soft tissue edema over the lower leg without underlying osseous or articular abnormality. R Tib/Fib XR: IMPRESSION: Soft tissue edema without underlying osseous or articular abnormality. Consultations 02/11/19 23:53 Consult: Onc/Wound/cell manager Routine Comment: low extremity assessment and treatment Operations: None Procedures: 2-D Echocardiogram - Interpretation Summary The estimated ejection fraction is 65 %. Normal diastology for age. Unable to estimate RV systolic pressure due to inadequate jet, pulmonary artery pressure probably normal. The study was technically difficult. Contrast injection was performed. There is no comparison study available. Summary of Care Provided: Per HPI: The patient is a 53 year old male patient presents to the ER with shortness of breath. He states he has been experiencing shortness of breath for the past several weeks however, today it became worse. He has not been to a doctor in several years. He has chronic conditions that have not been treated including lower extremity swelling and seepage of his legs with chronic appearing sores. He drinks 12-15 beers daily for as long as he can remember and does experience withdrawal symptoms when he stops, his last beer was yesterday. Today he is hypertensive and short of breath requiring oxygen to maintain his pulse oxygenation above 90%. He denies chest pain but he has had nausea. WBC count is 11,000 with a left shift and CXR is negative for pneumonia.He will be admitted to PCU floor for respiratory support and wound care management. He will be placed on alcohol withdrawal protocol. Hospital Course: 1. Group G streptococcal bacteremia secondary to right lower extremity cellulitis with [id number] male with no previous medical treatment, presents with worsening cellulitis and shortness of breath. His shortness of breath resolved very quickly, however it was noticed that he had a seeping right lower extremity wound. Wound cultures and blood cultures were obtained and he was started on antibiotics. The culture came back significant for a streptococcal infection and he was started on Ancef and fevers and leukocytosis resolved. Wound culture presented with a gram-positive cocci as well as MSSA, and so he was discharged on 12 more days of Keflex p.o. 4 times a day. 2. Shortness of breath secondary to hypertensive urgency-on admission he was found to have elevated blood pressure over 200. He was started on lisinopril 10 mg which did bring his blood pressure down into the 160s, and he was given as needed hydralazine which she received a couple doses therefore he was also started on Coreg 3.125 mg twice daily, and his blood pressure on the day of discharge was 139 systolic. Discussed with him that he needs to find a primary care physician to help manage his blood pressure issues. 3. Alcohol use-he drinks 12-15 beers a day and in discussion with him he has no interest in quitting and therefore instead of putting him through an alcohol withdrawal protocol he was just provided beer with meals and should be able to be discharged home. 4. Morbid obesity-BMI is over 40, encouraged lifestyle changes and diet modifications. Patient Problems: Active and Suspected Problems Shortness of breath (Acute) Venous stasis dermatitis (Acute) - Physical Exam General: Alert, Oriented x3, Cooperative, No apparent distress HEENT: Atraumatic, PERRLA, EOMI, Normocephalic Oral: Moist Mucosa Neck: Supple, No JVD, Trachea Midline Lungs: Clear to auscultation, Normal air movement, No rhonchi, No wheeze, No rales Cardiovascular: Regular rate, Regular Rhythm, Normal S1, Normal S2, No murmurs Abdomen: Soft, Non Tender, Non-Distended, No Hepato-splenomegaly, Obese Extremities: Capillary Refill Less than 3 Seconds, Edema - Bilateral lower extremities Skin: Ulcer/ Wound - right lower extremity cellulitis with right tibial ulcer, - - Chronic venous stasis changes Neurological: Neuro grossly intact, Sensory exam intact to light touch and pain Psych/Mental Status: Normal Affect, Appropriate Vital Signs Temp Pulse Resp BP Pulse Ox 98.4 F 76 18 139/76 H 95 02/14/19 09:26 02/14/19 10:59 02/14/19 09:26 02/14/19 09:26 02/14/19 09:26 Oxygen Flow Rate (L/min) 2 Oxygen Delivery Method Room Air Weight: 274 lb 14.663 oz Body Mass Index (BMI) 44.4 Intake and Output for Last 24 Hours 02/12/19 02/13/19 02/14/19 23:59 23:59 23:59 Intake Total 2816 / 2816 1175 / 1175 240 / 240 Output Total 1000 / 1000 575 / 575 Balance 1816 / 1816 600 / 600 240 / 240 Microbiology Past 72 Hours 02/12/19 08:45 Gram Stain - Final Wound - Leg, Right Wound Culture - Preliminary Staphylococcus aureus Gram positive organism 02/11/19 21:00 Bacteria Detection (PCR) - Final Blood Culture (Wb) - Anticubital Left Strep not Strep pneumo Blood Culture - Final Streptococcus group G 02/11/19 21:05 Blood Culture - Preliminary Blood Culture (Wb) - Venous Streptococcus group G 02/11/19 20:30 Influenza Types A,B Direct FA (SOCO) - Final Mucosa - Nasopharyngeal Laboratory Tests Past 24 Hrs 02/14/19 02/14/19 05:55 05:55 WBC 9.7 RBC 4.03 L Hgb 12.2 L Hct 36.9 L MCV 91.6 MCH 30.3 MCHC 33.1 RDW 13.3 RDW Differential 44.0 H Plt Count 124 L MPV 9.5 Sodium 136 Potassium 3.9 Chloride 104 Carbon Dioxide 24.0 Anion Gap 8 BUN 12 Creatinine 0.94 Estim Creat Clear Calc 81.07 Est GFR (MDRD) Af Amer 108 Est GFR (MDRD) Non-Af 89 BUN/Creatinine Ratio 12.8 Glucose 98 Calcium 8.5 Discharge Activity: Return to Normal Activity Call your doctor if your incision/area has: Foul Smelling Discharge Call your doctor if you observe: Fever of 101 or Higher, Shortness of breath, Dizziness, Fainting spells, Swelling in the ankles, Chest pain, Increased palpitations (irregular heartbeat) Home Medications: Medications to take at Discharge Carvedilol [Coreg] 3.125 mg PO BID #60 tablet 02/14/19 Cephalexin [Keflex] 500 mg PO Q6 #48 capsule 02/14/19 Lisinopril [Prinivil] 10 mg PO DAILY #30 tablet 02/14/19 Following Prescrptions Were Given to Patient: Cephalexin [Keflex] 500 mg PO Q6 #48 capsule Lisinopril [Prinivil] 10 mg PO DAILY #30 tablet Carvedilol [Coreg] 3.125 mg PO BID #60 tablet Primary Care Physician: Care Physician,No Primary [Primary Care Provider] - Please follow up with your Primary Care Physician in: 3-5 days Disposition: Home Minutes spent on discharge:: 35 Patient Condition:: Stable Medical Necessity - Tobacco Use Smoking Status: Never smoker Tobacco Use: Non-smoker Meaningful Use Info Meaningful Use Diagnoses (Choose all that apply): None applicable Code Visit Inpatient E&M: 41864 Disch Hosp
== END 2019-02-14 18:20 | disposition home or self-care (01) | DRG 305 ==
LOC: ED 20:30 → MS3 23:18 → PCU 02-12 07:21
PROVIDERS: Nurse Practitioner Family; Admitting Provider Family Medicine; Emergency Provider Emergency Medicine; Referring Provider Family Medicine; Visit Provider Family Medicine
DX: I16.0 Hypertensive urgency (principal); R78.81 Bacteremia; Z68.41 Body mass index [BMI] 40.0-44.9, adult; I87.2 Venous insufficiency (chronic) (peripheral); F10.10 Alcohol abuse, uncomplicated; B95.4 Other streptococcus as the cause of diseases classified elsewhere; B95.61 Methicillin susceptible Staphylococcus aureus infection as the cause of diseases classified elsewhere; E66.01 Morbid (severe) obesity due to excess calories
CPT/HCPCS: 36415; 71045; 73590; 80048; 80076; 83605; 83690; 83880; 85025; 85027; 85610; 85730; 87040; 87070; 87077; 87149; 87186; 87205; 87804; 93005; 93306; 94640; 99283; J7030; Q9957; A4216; C8929

== ENCOUNTER 2019-04-11 11:01 | Inpatient (IN) | payer SELFPAY ==
[2019-02-12 00:10] VITALS: BMI 44.4
[2019-04-11] VITALS (27 sets, daily range): BP systolic 66–147; BP diastolic 45–115; PULSE 45–54; RESP 16–22; TEMP 35.8–36.9; O2SAT 89–100; BMI 46.8; BMI 45.8
--- NOTE | 2019-04-11 11:19 | EKG12_ITS ---
Test Reason : HIGH BP Blood Pressure : / mmHG Vent. Rate : 052 BPM Atrial Rate : 052 BPM P-R Int : 180 ms QRS Dur : 080 ms QT Int : 422 ms P-R-T Axes : 031 034 048 degrees QTc Int : 392 ms Sinus bradycardia Otherwise normal ECG Confirmed by JA CARRIZALES, OSCAR ([id number]), photograph editor NEREYDA AGUERO ([id number]) on 04/15/2019 1:11:31 PM Referred By: KAYDEN Confirmed By:OSCAR PERES MD
--- NOTE | 2019-04-11 11:19 | RAD_ITS ---
STUDY: X-RAY CHEST REASON FOR EXAM: Male, 53 years old. Shortness of breath. Vomiting. Hypertension. Lower extremity edema. TECHNIQUE: Single AP portable view of the chest. COMPARISON: Comparison is made with prior study dated February 11, 2019. FINDINGS: EKG electrode are seen. Mild degree of vascular congestion. There is no demonstrated pleural abnormality. There is mild cardiac enlargement. Normal mediastinum and christi. Normal visualized pulmonary arteries. Normal visualized aortic arch and descending thoracic aorta. There are diffuse degenerative changes of the visualized thoracic spine. Normal visualized ribs, clavicles, and shoulders. There is no demonstrated abnormality of the visualized soft tissue structures of the upper abdomen. RAD/Chest 1 View (Portable) IMPRESSION: Mild cardiomegaly. Mild degree of vascular congestion. Electronically Signed: Jason Tran, at 13:02 EDT , Service support ,
[2019-04-11] MEDS: 0.9% Normal Saline 1,000 ML 999 ML IV ×4 (11:39→14:54)
[2019-04-11] MEDS: Ondansetron 4 MG/2 ML Vial IV ×2 (11:39→16:34)
[2019-04-11 11:57] LABS: Absolute Lymphocyte Count 1.82 X10^3/ul (0.83-4.51); Absolute Neutrophil Count 8.5 X10^3/uL (2.0-7.7); Basophil# 0.06 X10^3/uL; Basophil% 0.5 % (0-1); Eosinophil# 0.16 X10^3/uL; Eosinophils% 1.4 % (0-5); Hematocrit 39.9 % (40-54); Hemoglobin 13.8 g/dl (13.0-16.5); Lymphocyte # 1.82 X10^3/ul (4.0); Lymphocyte % 16.1 % (19-41); Mean Corp Hgb Conc 34.6 g/gl (32-36); Mean Corpuscular Hgb 30.8 pg (27.0-32.0); Mean Corpuscular Volume 89.1 fL (80-94); Monocyte# 0.67 X10^3/uL; Monocyte% 5.9 % (0-10); Neutrophil # 8.51 X10^3/uL (2.7-7.7); Neutrophil % 75.7 % (47-70); Platelet Count 193 K/mm3 (150-450); RBC Distribution Width CV 13.9 % (11.6-14.6); RBC Distribution Width SD 45.3 fl (35.1-43.9); Red Blood Count 4.48 M/mm3 (4.6-6.2); White Blood Count 11.3 K/mm3 (4.4-11.0)
[2019-04-11 11:58] LABS: POSITIVE COUNT NO; POSITIVE DIFFERENTIAL NO; POSITIVE MORPHOLOGY NO
[2019-04-11 12:13] LABS: ALB/GLOB Ratio 0.8 RATIO (0.9-2.4); AST(SGOT) 43 U/L (15-37); Alanine Aminotransfer ALT/SGPT 54 U/L (16-61); Albumin, Serum 3.3 g/dL (3.2-5.0); Alkaline Phosphatase 108 U/L (45-117); Anion Gap 16 (5-15); BUN 14 mg/dL (7-18); BUN/Creat Ratio 6.2 RATIO (10-20); Chloride 98 mmol/L (98-107); Creatinine, Serum 2.25 mg/dL (0.70-1.30); EST Glomerular Filtration Rate 32 mL/min (>60); Est Glom Filt Rate - Afr Amer 39 mL/min (>60); Estimated Creatinine Clearance 33.87 ml/min; Globulin 4.1 g/dL (2.2-4.2); Glucose 142 mg/dL (74-106); Potassium 5.6 mmol/L (3.5-5.1); Protein, Total 7.4 g/dL (6.4-8.2); Sodium Level 132 mmol/L (136-145)
[2019-04-11 12:20] LABS: International Normalized Ratio 1.1; Prothrombin Time (Protime)PT. 14.2 SECONDS (11.7-14.9)
[2019-04-11 12:21] LABS: Partial Thromboplast Time 30.9 Seconds (24.1-36.2)
[2019-04-11 12:29] LABS: Lactic Acid 2.6 mmol/L (0.4-2.0)
--- NOTE | 2019-04-11 12:34 | CT_ITS ---
STUDY: CT ABDOMEN AND PELVIS WITH CONTRAST REASON FOR EXAM: Male, 53 years old. Hypotensive. Widening of the mediastinum on chest radiograph. RADIATION DOSAGE (If Supplied By Facility): CTDIvol = ( 17.61 ) mGy, DLP = ( 2367.07 ) mGycm TECHNIQUE: Transaxial images were obtained from the dome of the diaphragm to the symphysis pubis without oral contrast. 75 IV Isovue 370 was administered. Sagittal and coronal images were reconstructed. Individualized dose optimization techniques were used for this CT. COMPARISON: None. FINDINGS: Mild degree of increased linear markings at the lung bases suggestive of atelectasis and/or scarring. The visualized portions of the heart are within normal limits. There is decreased attenuation of the liver consistent with steatosis. Hepatomegaly. Minimal amount of free fluid along the inferior medial aspect of the liver. Normal gallbladder and extrahepatic biliary system. Small amount of pericholecystic fluid. Normal spleen. Normal pancreas. Normal bilateral adrenal glands. There is a 4.2 cm x 2 cm cyst in the lateral aspect of the right kidney. Normal left kidney. Normal visualized stomach. Normal small intestine. Normal colon. The appendix is visualized and appears normal. Normal abdominal aorta. Normal inferior vena cava. There is borderline retroperitoneal lymphadenopathy with enlarged nodes no greater than 10mm in the short axis diameter. The bladder is empty at the time of the examination. Normal abdominal wall. There are diffuse degenerative changes of the visualized lumbar spine. CT/CTA Abdomen W/WO Contrast IMPRESSION: Hepatomegaly and fatty infiltration of the liver. Minimal amount of free fluid along the inferior medial aspect of the liver. Small amount of pericholecystic fluid. Right renal cyst. Electronically Signed: Jason Tran, at 13:32 EDT , Service support ,
--- NOTE | 2019-04-11 12:34 | CT_ITS ---
STUDY: CTA CHEST REASON FOR EXAM: Male, 53 years old. Hypotensive. Widened mediastinum. RADIATION DOSAGE (If Supplied By Facility): CTDIvol = ( 17.61 ) mGy, DLP = ( 2367.07 ) mGycm TECHNIQUE: The examination was performed with the intravenous administration of 75 IV Isovue 370. Post-processing of the angiographic images was performed, with multiplanar reformation and 3D reconstruction. Individualized dose optimization techniques were used for this CT. COMPARISON: None. FINDINGS: 7.9 mm calcification in the inferior aspect of the left lobe of the thyroid. Normal enhancement of the main pulmonary artery and right and left pulmonary arteries. Normal enhancement of the bilateral peripheral pulmonary arteries. There is no demonstrated pulmonary embolism. Normal thoracic aorta and visualized great vessels. There is no demonstrated aortic dissection. Normal heart and pericardium. There are calcifications of the coronary arteries. There are visualized mediastinal lymph nodes, which are within normal size limits, and with normal morphology. There are bilateral hilar lymph nodes, which are normal in size and morphology. Normal visualized trachea and bronchi. The lungs are well expanded. Mild increased markings at the lung bases suggestive of atelectasis and/or scarring. Calcified granuloma in the left lower lobe. Normal pleura. Normal chest wall structures. There are degenerative changes of thoracic spine. Fatty infiltration of the liver. CT/CTA Chest W/WO Contrast IMPRESSION: Linear atelectasis and/or scarring at the lung bases. Fatty infiltration of the liver. Electronically Signed: Jason Tran, at 13:35 EDT , Service support ,
--- NOTE | 2019-04-11 12:37 | ED.RN ---
pt lactic 2.[address] lab[address] dr becerril aware
--- NOTE | 2019-04-11 13:41 | US_ITS ---
STUDY: ABDOMINAL ULTRASOUND - RIGHT UPPER QUADRANT REASON FOR VISIT: Male, 53 years old. Nausea and vomiting. TECHNIQUE: Ultrasound evaluation of the right upper quadrant was performed with real-time and static aguillon-scale imaging. TECHNICAL QUALITY: Adequate. COMPARISON: Comparison is made with prior CT scan of the abdomen done earlier today. FINDINGS: Liver: The liver is enlarged and measures 23.3 cm. There is increased echogenicity consistent with fatty infiltration. The bile ducts are within normal limits. There is hepatic color flow. The direction of portal flow is hepatopetal. There is no demonstrated mass lesion. Gallbladder: Normal distended gallbladder. The gallbladder wall is thickened and measures 6.8 mm. There is a negative sonographic Esposito's sign. There is pericholecystic fluid. There are no gallstones. Common Bile Duct (C.B.D.): The common bile duct measures mm. Pancreas: Normal size of the head, body and tail of the pancreas. There is normal echogenicity of the pancreas. There is no demonstrated pancreatic mass or cyst. Right Kidney: Normal size of the right kidney. The right kidney measures 12.5 cm x 7.5 cm x 6.6 cm. Normal renal cortex. The right cortex measures 1.6 cm. There is a 5.3 cm x 4.2 cm x 2.2 cm right renal cyst. There is no right hydronephrosis. US/Gallbladder IMPRESSION: Hepatomegaly. Fatty attrition of the liver. Thickened gallbladder wall. Small amount of pericholecystic fluid. Electronically Signed: Jason Tran, at 15:13 EDT , Service support ,
[2019-04-11 13:47] LABS: Bacteria 0 SEEN /hpf (None Seen); Mucous, Urine 0 SEEN /hpf (<or=2+); Red Blood Cells-Urine 0 SEEN /hpf (0-5); Squamous Epithelial Cells - UA 0 SEEN /hpf (0-5); White Blood Cells 0 SEEN /hpf (0-5)
[2019-04-11 14:07] LABS: Color, Urine Yellow (Yellow); Glucose, Dipstick Normal (Normal); Ketone-Dipstick Negative (Negative); Leukocyte Esterase-Dipstick Negative /ul (Negative); Nitrite-Dipstick Negative (Negative); Occult Blood-Urine Negative /ul (Negative); Protein-Dipstick 30 mg/dl (Negative); Urine Bilirubin Dipstick Negative (Negative); Urine Clarity Clear (Clear); Urine Urobilinogen Normal (Normal)
[2019-04-11 14:24] LABS: Amorphous Sediment 1+
--- NOTE | 2019-04-11 14:27 | EKG12_ITS ---
Test Reason : REPEAT EKG Blood Pressure : / mmHG Vent. Rate : 049 BPM Atrial Rate : 049 BPM P-R Int : 176 ms QRS Dur : 078 ms QT Int : 462 ms P-R-T Axes : 046 043 047 degrees QTc Int : 417 ms Sinus bradycardia Otherwise normal ECG Confirmed by JA CARRIZALES, OSCAR ([id number]), fashion editor NEREYDA AGUERO ([id number]) on 04/15/2019 1:11:51 PM Referred By: KAYDEN Confirmed By:OSCAR PERES MD
--- NOTE | 2019-04-11 14:30 | HP.PCM_ITS ---
Problem List (1) Shock Status: Acute (2) Hypertension Status: Chronic Qualifiers: Hypertension type: essential hypertension Qualified Code(s): I10 - Essential (primary) hypertension (3) Beta jey toxicity Status: Acute History of Present Illness Date of Admission: 04/11/19 Chief Complaint: Chest pain, hypotension - 1 day. Suicidal attempt - 1 day The patient is a 53 year old M with past medical history of morbid obesity, chronic venous dermatitis, chronic alcoholic use disorder who comes in with complaints of feeling sweaty with burning chest pain. He had gone to work this morning complaining of fatigue and had an episode of vomiting and felt unwell. Patient has been drinking more than a pint of alcohol daily. He later on admitted to the ED physician that he took all the medications in his blood pressure pills bottle. He complains of chest discomfort with dizziness but no palpitation. Vitals in ED showed temp 97.6F, HR 52, BP 74/51, RR 22, Spo2 89%. Admitting blood work showed WBC 11.3, Hb 13.8, Plt 193, Na 132, K 5.6, Cl 98, HCO3 18, BUN 14, Cr 2.25. Lactic acid 2.6, repeat 2.0. Troponins x2 is negative. Chest x-ray shows mild cardiomegaly, mild vascular congestion. CT of the abdomen shows hepatomegaly, fatty infiltration of the liver, minimal amount of free fluid, small amount of very cholecystic fluid. Right renal cyst. Chest CTA showed linear atelectasis with scarring at the bases, fatty infiltration of the liver. Ultrasound of the liver showed hepatomegaly, fatty infiltration of the liver, thickened gallbladder wall, small amount of pericholecystic fluid. Past Medical History Past Medical History (Chronic Problems): Chronic Problems Hypertension (Chronic) Alcohol abuse (Chronic) Allergies No Known Allergies Allergy (Verified 04/11/19 11:12) Home Medications: Ambulatory Orders Medication Instructions Recorded Carvedilol [Coreg] 3.125 mg PO BID #60 tablet 02/14/19 Lisinopril [Prinivil] 10 mg PO DAILY #30 tablet 02/14/19 Surgical History: no surgical history Psychiatric History: No pertinent psych hx Lives: With Family Smoking Status: Former smoker Tobacco Use: Non-smoker Alcohol: None Drugs: None - *Family History Maternal History Items: Heart Disease Paternal History Items: Heart Disease Review of Systems Constitutional: Reports: Anorexia, Malaise, Weakness, Fatigue. Denies: Chills, Fever, Night Sweats, Weight Change Eyes: Denies: Blurred vision, Cataracts, Conjunctivae Inflammation, Pain, Redness, Vision Change HEENT: Denies: Difficulty Hearing, Difficulty Swallowing, Head Aches, Hearing Changes, Sinus Congestion, Sinus Drainage Cardiovascular: Reports: Chest Pain, Chest Pressure, Chest Tightness. Denies: Claudication, Palpitations Respiratory: Denies: Cough, Shortness of breath at rest, Shortness of breath upon exertion, Sputum production Gastrointestinal: Reports: Abdominal Pain, Nausea, Vomiting. Denies: Hematemesis, Hematochezia Genitourinary: Denies: Dysuria, Frequency, Incontinence Musculoskeletal: Denies: Joint Pain, Joint stiffness, Joint swelling, Joint Tenderness Skin: Denies: Dryness, Pruritis, Rash, Wounds Neurological: Denies: Focal weakness, Incoordination, Numbness, Tingling Psychiatric: Denies: Anxiety, Depression, Homicidal Ideations, Suicidal Ideations Hematologic/ Lymphatic: Denies: Easy Bruising, Easy Bleeding VTE Information - Inpt Only VTE Present on Admission: No VTE Pharm Prophylaxis ordered?: Yes Patient Problems: Active and Suspected Problems Shock (Acute) Beta jey toxicity (Acute) - Physical Exam General: Alert, Oriented x3, Cooperative, No apparent distress HEENT: Atraumatic, PERRLA, EOMI, Normocephalic Oral: Dry Mucosa Neck: Supple Lungs: Clear to auscultation, Normal air movement Cardiovascular: Regular rate, Regular Rhythm, Normal S1, Normal S2, No murmurs Abdomen: Bowel Sounds Present, Soft, Non Tender, Non-Distended, No Hepato- splenomegaly Extremities: Edema - bilateral pedal edema +3, woody, with scaliness, mild erythema, overgrown,dystrophic nails Skin: No rashes, No breakdown Musculoskeletal: No Tenderness to Palpation of Joints or Extremities Lymphatic: No Cervical, Supraclavicular, or Inguinal Adenopathy Neurological: Cranial nerves II-XII grossly intact, Neuro grossly intact Psych/Mental Status: Normal Affect, Appropriate Vital Signs Temp Pulse Resp BP Pulse Ox 97.7 F L 45 L 20 H 80/57 L 94 04/11/19 13:05 04/11/19 13:04 04/11/19 13:04 04/11/19 13:04 04/11/19 13:04 Oxygen Flow Rate (L/min) 2 Oxygen Delivery Method Nasal Cannula Weight: 131.6 kg Body Mass Index (BMI) 46.8 Laboratory Tests Past 24 Hrs 04/11/19 04/11/19 04/11/19 11:30 11:30 11:30 WBC 11.3 H RBC 4.48 L Hgb 13.8 Hct 39.9 L MCV 89.1 MCH 30.8 MCHC 34.6 RDW 13.9 RDW Differential 45.3 H Plt Count 193 MPV 9.0 Immature Gran % (Auto) 0.400 Neut % (Auto) 75.7 H Lymph % (Auto) 16.1 L [place] % (Auto) 5.9 Eos % (Auto) 1.4 Baso % (Auto) 0.5 Absolute Neuts (auto) 8.5 H Absolute Lymphs (auto) 1.82 Total Counted Not Reportable PT 14.2 INR 1.1 APTT 30.9 Sodium 132 L Potassium 5.6 H Chloride 98 Carbon Dioxide 18.0 L Anion Gap 16 H BUN 14 Creatinine 2.25 H Estim Creat Clear Calc 33.87 Est GFR (MDRD) Af Amer 39 L Est GFR (MDRD) Non-Af 32 L BUN/Creatinine Ratio 6.2 L Glucose 142 H Lactic Acid Calcium 8.0 L Total Bilirubin 1.10 H AST 43 H ALT 54 Alkaline Phosphatase 108 Troponin I < 0.015 Total Protein 7.4 Albumin 3.3 Globulin 4.1 Albumin/Globulin Ratio 0.8 L Urine Color Urine Clarity Urine pH Ur Specific [place] Urine Protein Urine Glucose (UA) Urine Ketones Urine Occult Blood Urine Nitrite Urine Bilirubin Urine Urobilinogen Ur Leukocyte Esterase Urine RBC Urine WBC Ur Squamous Epith Cells Amorphous Sediment Urine Bacteria Urine Mucus Ethyl Alcohol 04/11/19 04/11/19 04/11/19 11:30 13:40 14:05 WBC RBC Hgb Hct MCV MCH MCHC RDW RDW Differential Plt Count MPV Immature Gran % (Auto) Neut % (Auto) Lymph % (Auto) [place] % (Auto) Eos % (Auto) Baso % (Auto) Absolute Neuts (auto) Absolute Lymphs (auto) Total Counted PT INR APTT Sodium Potassium Chloride Carbon Dioxide Anion Gap BUN Creatinine Estim Creat Clear Calc Est GFR (MDRD) Af Amer Est GFR (MDRD) Non-Af BUN/Creatinine Ratio Glucose Lactic Acid 2.6 H Calcium Total Bilirubin AST ALT Alkaline Phosphatase Troponin I Total Protein Albumin Globulin Albumin/Globulin Ratio Urine Color Yellow Urine Clarity Clear Urine pH 5.0 Ur Specific [place] 1.010 Urine Protein 30 H Urine Glucose (UA) Normal Urine Ketones Negative Urine Occult Blood Negative Urine Nitrite Negative Urine Bilirubin Negative Urine Urobilinogen Normal Ur Leukocyte Esterase Negative Urine RBC 0 SEEN Urine WBC 0 SEEN Ur Squamous Epith Cells 0 SEEN Amorphous Sediment 1+ Urine Bacteria 0 SEEN Urine Mucus 0 SEEN Ethyl Alcohol Pending 04/11/19 04/11/19 14:05 14:05 WBC RBC Hgb Hct MCV MCH MCHC RDW RDW Differential Plt Count MPV Immature Gran % (Auto) Neut % (Auto) Lymph % (Auto) [place] % (Auto) Eos % (Auto) Baso % (Auto) Absolute Neuts (auto) Absolute Lymphs (auto) Total Counted PT INR APTT Sodium Potassium Chloride Carbon Dioxide Anion Gap BUN Creatinine Estim Creat Clear Calc Est GFR (MDRD) Af Amer Est GFR (MDRD) Non-Af BUN/Creatinine Ratio Glucose Lactic Acid Pending Calcium Total Bilirubin AST ALT Alkaline Phosphatase Troponin I Pending Total Protein Albumin Globulin Albumin/Globulin Ratio Urine Color Urine Clarity Urine pH Ur Specific [place] Urine Protein Urine Glucose (UA) Urine Ketones Urine Occult Blood Urine Nitrite Urine Bilirubin Urine Urobilinogen Ur Leukocyte Esterase Urine RBC Urine WBC Ur Squamous Epith Cells Amorphous Sediment Urine Bacteria Urine Mucus Ethyl Alcohol Assessment/Plan All Active Problems Shortness of breath (Acute) Venous stasis dermatitis (Acute) Shock (Acute) Beta jey toxicity (Acute) Elevated blood pressure (Acute) Hyponatremia (Acute) Chest pain (Acute) 53 year old M with past medical history of morbid obesity, chronic venous dermatitis, chronic alcoholic use disorder who comes in with complaints of feeling sweaty with burning chest pain. 1. Shock, medication-related, secondary to carvedilol and lisinopril overdose Plan: Admit to ICU, monitor vitals, will continue on IVF, [employer] Engine [employer]ipe [employer] consulted, may need pressors if BP remains in low 2. Acute kidney injury, pre-renal secondary to #1, on IVF, will repeat BMP in am 3. Hyperkalemia secondary to Lisinopril overdose, no EKG changes, will repeat BMP in 1 hour and in am. 4. Elevated lactic acid likely secondary to #1, improving, will trend in am. 5. Suicidal attempt, will get Mobile Crisis involved. 6. Hyponatremia, secondary to DONNY, repeat BMP 7. Chest pain, atypical likely secondary to shock. EKG shows no acute ST-T changes, will trend troponins 8. DVT PPx- Heparin SC Code Visit Inpatient E&M: 10031 Init Hosp L3
--- NOTE | 2019-04-11 14:47 | ED.RN ---
lactic 2.[address] becerril aware
[2019-04-11] MEDS: Glucagon 1 MG/ML Syringe IV (14:48)
--- NOTE | 2019-04-11 14:56 | ED.RN ---
pt was asked at triage if he was suicidal. pt denied. after confessing this nurse asked the pt why he didnt tell me he took the pills because we are here to help him. he said he didnt tell me because he thought he was going to be in trouble. i advised the pt that he would not be in trouble and we are here to help him.
--- NOTE | 2019-04-11 15:06 | ED.DCSUM_ITS ---
- ER Visit Summary Date of Service: 04/11/19 Chief Complaint: Hypotension History of Present Illness: The patient is a 53 M who presents the emergency department with hypotension. The patient states he got up around 530 this morning went to work. While there he felt very tired and fatigued. Had an episode of vomiting. Eventually he was at home and his son was called to come look at him. He states that he seemed out of it was sweaty and not his normal self. Patient is an alcoholic. He states he was drinking last night. He denies any recent fevers. He was admitted last month with a hypertensive urgency and also had bacteremia from a lower extremity wound. Ejection fraction at that time 65%. He was started on carvedilol and DANYELLE inhibitor. He states he has been taking the medicine but not all the time. No primary care physician. Physical Examination: Afebrile heart rate 52 blood pressure 69/45 pulse ox 99% on room air respiratory rate is 22 Gen: Well-nourished well-developed morbidly obese patient here appears fatigued Head: Normocephalic atraumatic Eyes: Perrl EOMI ENT: TMs clear no rhinorrhea moist mucous membranes Neck: Supple no lymphadenopathy no JVD nontender CVS: Regular rate bradycardic rhythm no murmurs normal S1-S2 Respiratory: No distress clear to auscultation bilaterally chest nontender Abdomen: Soft nontender nondistended normal bowel sounds no masses Back: Nontender Extremity: 4+ lower extremity edema venous stasis changes Skin: Normal color no rash Neuro: alert orientated ?3 CN II-XII intact normal strength sensation reflexes gait cerebellar Psych: Normal affect normal mood Test Results: EKG shows a sinus bradycardia at a rate of 52. White count limb 0.3. Potassium 5.3. Creatinine 2.25. Lactic acid 2.6. Troponin is negative. Chest x-ray which was portable when compared to his last portable chest x-ray is concerning for widened mediastinum. CT Sandhya of the chest and abdomen pelvis to rule out dissection was obtained which did not show dissection effusion or PE. There is small amount of fluid around the gallbladder and the liver. Formal gallbladder ultrasound was ordered. Emergency Department Course and Treatment: Patient received a dose of Zosyn and IV fluids. Went back and spoke with the patient and he tells me that last night while he was drinking he became depressed. He found an old bottle of unknown blood pressure medication when he woke this morning that bottle was empty. He denies being actively suicidal but does note that he is down. Plan is admission. Impression: 1. Medication overdose 2. Suicide attempt 3. Bradycardia 4. Hypotension 5. Acute renal failure 6. Critical care time 35 minutes This note was generated with [employer] dictation software. It may contain incorrect words, spelling, and punctuation that were not noted in review of the chart prior to signing
--- NOTE | 2019-04-11 15:15 | CASEMGMT ---
RN CM Assessment Introduced role of RN CM to patient.? Patient is alert, oriented and able?to participate in RN CM Assessment. ?Care providers, pharmacy, and demographics verified. Presentation: Low BP and HR Admit Dx: Shock Re-Admit: No, Inpt 02/12-02/14/19 for Group G Streptococcal Bacteremia s/t Cellulitis w/Ulcer, SOB s/t HTN Urgency, Alcohol Use. Barriers/Issues: H/o Alcoholism, drinks 12-15 beers/day, [facility] would like to speak with the social service manager about getting some help with alcoholism and depression. States does not get Health insurance through his employer and was thinking about asking employer if he can go to four days/week so that he can get health insurance, this blog writer discussed with patient resources- patient currently renting home he resides in and this blog writer discussed available resources in [facility] if patient were to consider relocating. Patient states applied for Medicaid in the past and did not qualify d/t making to much. PCP: None, was provided a list last admission but has not established a PCP Specialists: None Preferred [facility]acy: [facility] Insurance: None Rx Benefit: None? LNOK: Dtr Tanika Simmons LW/HPOA: None, Declines offered information/services Living Arrangements:?Lives with his Dtr and father in a 2 story home, 2 steps to enter. ADL?s: Independent with ambulation and ADL's Transportation: Friend transports, Dtr to transport on DC DME: None HHC: None SNF: None Goal: Home, does not think will have any needs but states does want to get help with Alcoholism and Depression DC PLAN: Home with no anticipated needs identified at this time. Possible CCN Referral if patient agreeable. VIRGINIA Patterson
[2019-04-11 15:50] LABS: Reflex Lactate? Y
--- NOTE | 2019-04-11 16:03 | PCM.CON.CC ---
Problem List (1) Overdose of beta-adrenergic antagonist drug Status: Acute Qualifiers: Encounter type: initial encounter Injury intent: intentional self-harm Qualified Code(s): T44.7X2A - Poisoning by beta-adrenoreceptor antagonists, intentional self-harm, initial encounter (2) Shortness of breath Status: Acute (3) Venous stasis dermatitis Status: Acute Qualifiers: Laterality: bilateral Qualified Code(s): I87.2 - Venous insufficiency (chronic) (peripheral) (4) Beta jey toxicity Status: Acute (5) Hyponatremia Status: Acute (6) Chest pain Status: Acute (7) Alcohol abuse Status: Chronic Reason for Consult Date of Consultation: 04/11/19 Reason for Consultation: Hypotension History of Present Illness: The patient is a 53 year old M, with past medical history listed below, who presented to [facility] ED on 04/11/2019 secondary to feeling fatigued and emesis. Patient reportedly woke up this morning at approximately 5:30 AM and was not feeling well. Patient was noted to be sweaty and not his normal self. Patient called his son and the son had brought the patient in for evaluation. Patient reportedly does not have a primary care physician, but is treated with carvedilol and an DANYELLE inhibitor at home for hypertension. Patient was recently admitted to the hospital secondary to hypertensive urgency and bacteremia from a lower extremity leg wound. In the emergency room, patient was noted to have a heart rate of 52 and a blood pressure of 69/45 saturating well on room air. Physical exam did show 4+ lower extremity edema with venous stasis changes. Chest x-ray was suggestive of a widened mediastinum, so CT angios of the chest abdomen and pelvis did not show any dissection or pulmonary embolism. There was some small fluid around the gallbladder and liver. Later in patient's ER course, patient states that he did become depressed overnight and had woken up with an empty bottle of blood pressure medications at the bedside. Patient is unclear on what this medication was. Patient does admit that he has been significantly depressed recently secondary to an inability to move around. Patient denies any history of trying to hurt himself previously. Patient states he is remorseful. On arrival to the intensive care unit, patient was noted to have a flat affect. Patient was bradycardic and blood pressures were marginal. Patient denied any pain or dyspnea. Patient reported that overall he felt subjectively unchanged compared to previous. Patient did admit to taking the medications, but states he has no intention of hurting himself at this time. Patient would like full measures if necessary. Patient does report a 5-pack-year smoking history, but is never had pulmonary function test previously. Patient does report lower extremity swelling at baseline, but feels this is worse over the last 2 to 4 weeks. Patient reports he did take antibiotics as prescribed. Patient denies any illicit drug use, but reports drinking 15 to 30 cans of beer a day. Patient does admit to becoming shaky if he does not drink, but denies any history of DTs. Review of systems otherwise negative x10 systems. Past Medical History Past Medical History (Chronic Problems): Chronic Problems Hypertension (Chronic) Alcohol abuse (Chronic) Allergies No Known Allergies Allergy (Verified 04/11/19 11:12) Home Medications: Ambulatory Orders Medication Instructions Recorded Carvedilol [Coreg] 3.125 mg PO BID #60 tablet 02/14/19 Lisinopril [Prinivil] 10 mg PO DAILY #30 tablet 02/14/19 Surgical History: no surgical history Psychiatric History: No pertinent psych hx Lives: With Family Smoking Status: Former smoker Tobacco Use: Non-smoker Alcohol: None Drugs: None - *Family History Maternal History Items: Heart Disease Paternal History Items: Heart Disease Review of Systems Comment: See HPI Patient Problems: Active and Suspected Problems Shock (Acute) Beta jey toxicity (Acute) Overdose of beta-adrenergic antagonist drug (Acute) Objective: CT of the chest was personally reviewed. Patient does not have significant emphysematous changes. There is some basilar atelectasis. Patient also had a gallbladder ultrasound showing hepatomegaly with fatty liver and thickened gallbladder wall. - Physical Exam General: Alert, Oriented x3, Cooperative, No apparent distress, - - Morbidly obese. No conversational dyspnea. HEENT: Atraumatic, PERRLA, EOMI, Normocephalic, - - No scleral icterus, but does have injection Oral: Moist Mucosa, No Gingival or Mucosal Lesions/ Ulcerations Neck: Supple, No Nodes, Trachea Midline, - - JVD difficult to assess secondary to body habitus Lungs: No rhonchi, No wheeze, No rales, Diminished Cardiovascular: Normal S1, Normal S2, No murmurs, Bradycardic - Sinus bradycardia on telemetry, No rub noted, No Gallop Abdomen: Bowel Sounds Present, Soft, Non Tender, Non-Distended, Obese Extremities: No clubbing, No cyanosis, Diminished Peripheral Pulses, Edema - 2+ lower extremity edema Skin: - - Significant venous stasis changes of the lower extremities. Some cracking noted of the right lower extremity skin. This is not associated with erythema or exudate. Musculoskeletal: No Tenderness to Palpation of Joints or Extremities Lymphatic: No Cervical, Supraclavicular, or Inguinal Adenopathy Neurological: Cranial nerves II-XII grossly intact, Neuro grossly intact, - - Slightly decreased sensation of bilateral lower extremities Psych/Mental Status: Flat Affect Vital Signs Temp Pulse Resp BP Pulse Ox 36.5 C L 45 L 20 H 80/57 L 94 04/11/19 13:05 04/11/19 13:04 04/11/19 13:04 04/11/19 13:04 04/11/19 13:04 Oxygen Flow Rate (L/min) 2 Oxygen Delivery Method Nasal Cannula Weight: 128.8 kg Body Mass Index (BMI) 45.8 Laboratory Tests Past 24 Hrs 04/11/19 04/11/19 04/11/19 11:30 11:30 11:30 WBC 11.3 H RBC 4.48 L Hgb 13.8 Hct 39.9 L MCV 89.1 MCH 30.8 MCHC 34.6 RDW 13.9 RDW Differential 45.3 H Plt Count 193 MPV 9.0 Immature Gran % (Auto) 0.400 Neut % (Auto) 75.7 H Lymph % (Auto) 16.1 L [place] % (Auto) 5.9 Eos % (Auto) 1.4 Baso % (Auto) 0.5 Absolute Neuts (auto) 8.5 H Absolute Lymphs (auto) 1.82 Total Counted Not Reportable PT 14.2 INR 1.1 APTT 30.9 Sodium 132 L Potassium 5.6 H Chloride 98 Carbon Dioxide 18.0 L Anion Gap 16 H BUN 14 Creatinine 2.25 H Estim Creat Clear Calc 33.87 Est GFR (MDRD) Af Amer 39 L Est GFR (MDRD) Non-Af 32 L BUN/Creatinine Ratio 6.2 L Glucose 142 H Lactic Acid Calcium 8.0 L Total Bilirubin 1.10 H AST 43 H ALT 54 Alkaline Phosphatase 108 Troponin I < 0.015 Total Protein 7.4 Albumin 3.3 Globulin 4.1 Albumin/Globulin Ratio 0.8 L Urine Color Urine Clarity Urine pH Ur Specific [place] Urine Protein Urine Glucose (UA) Urine Ketones Urine Occult Blood Urine Nitrite Urine Bilirubin Urine Urobilinogen Ur Leukocyte Esterase Urine RBC Urine WBC Ur Squamous Epith Cells Amorphous Sediment Urine Bacteria Urine Mucus Ethyl Alcohol 04/11/19 04/11/19 04/11/19 11:30 13:40 14:05 WBC RBC Hgb Hct MCV MCH MCHC RDW RDW Differential Plt Count MPV Immature Gran % (Auto) Neut % (Auto) Lymph % (Auto) [place] % (Auto) Eos % (Auto) Baso % (Auto) Absolute Neuts (auto) Absolute Lymphs (auto) Total Counted PT INR APTT Sodium Potassium Chloride Carbon Dioxide Anion Gap BUN Creatinine Estim Creat Clear Calc Est GFR (MDRD) Af Amer Est GFR (MDRD) Non-Af BUN/Creatinine Ratio Glucose Lactic Acid 2.6 H Calcium Total Bilirubin AST ALT Alkaline Phosphatase Troponin I Total Protein Albumin Globulin Albumin/Globulin Ratio Urine Color Yellow Urine Clarity Clear Urine pH 5.0 Ur Specific [place] 1.010 Urine Protein 30 H Urine Glucose (UA) Normal Urine Ketones Negative Urine Occult Blood Negative Urine Nitrite Negative Urine Bilirubin Negative Urine Urobilinogen Normal Ur Leukocyte Esterase Negative Urine RBC 0 SEEN Urine WBC 0 SEEN Ur Squamous Epith Cells 0 SEEN Amorphous Sediment 1+ Urine Bacteria 0 SEEN Urine Mucus 0 SEEN Ethyl Alcohol 79.0 04/11/19 04/11/19 14:05 14:05 WBC RBC Hgb Hct MCV MCH MCHC RDW RDW Differential Plt Count MPV Immature Gran % (Auto) Neut % (Auto) Lymph % (Auto) [place] % (Auto) Eos % (Auto) Baso % (Auto) Absolute Neuts (auto) Absolute Lymphs (auto) Total Counted PT INR APTT Sodium Potassium Chloride Carbon Dioxide Anion Gap BUN Creatinine Estim Creat Clear Calc Est GFR (MDRD) Af Amer Est GFR (MDRD) Non-Af BUN/Creatinine Ratio Glucose Lactic Acid 2.0 Calcium Total Bilirubin AST ALT Alkaline Phosphatase Troponin I < 0.015 Total Protein Albumin Globulin Albumin/Globulin Ratio Urine Color Urine Clarity Urine pH Ur Specific [place] Urine Protein Urine Glucose (UA) Urine Ketones Urine Occult Blood Urine Nitrite Urine Bilirubin Urine Urobilinogen Ur Leukocyte Esterase Urine RBC Urine WBC Ur Squamous Epith Cells Amorphous Sediment Urine Bacteria Urine Mucus Ethyl Alcohol Clinical Impression(s) from Imaging Studies Chest X-Ray 04/11/19 11:19 IMPRESSION: Mild cardiomegaly. Mild degree of vascular congestion. Electronically Signed: Jason Chelsea, at 13:02 EDT , Service support , Abdomen CTA 04/11/19 12:34 IMPRESSION: Hepatomegaly and fatty infiltration of the liver. Minimal amount of free fluid along the inferior medial aspect of the liver. Small amount of pericholecystic fluid. Right renal cyst. Electronically Signed: Jason Tran, at 13:32 EDT , Service support , ADDENDUM: 04/11/19 1514 Chest CTA 04/11/19 12:34 IMPRESSION: Linear atelectasis and/or scarring at the lung bases. Fatty infiltration of the liver. Electronically Signed: Jason Tran, at 13:35 EDT , Service support , Gallbladder Ultrasound 04/11/19 13:41 IMPRESSION: Hepatomegaly. Fatty attrition of the liver. Thickened gallbladder wall. Small amount of pericholecystic fluid. Electronically Signed: Jason Tran, at 15:13 EDT , Service support , Assessment/Plan Active and Suspected Problems Shock (Acute) Beta jey toxicity (Acute) Overdose of beta-adrenergic antagonist drug (Acute) RECOMMENDATIONS: 1. Hold on further fluid boluses 2. Initiate peripheral dopamine if necessary 3. Initiate CIWA protocol 4. Okay to start Librium if blood pressure improves 5. Suicide precautions IMPRESSIONS: 1. Hypotension/bradycardia secondary to intentional self-harm overdose of probable beta-jey Patient's blood pressure is acceptable at this time. Patient did receive glucagon in the ER. High clinical suspicion that patient has bradycardia and hypotension secondary to overdose of carvedilol. Will provide supportive therapy. Patient can be initiated on dopamine peripherally transiently if necessary. Would not recommend giving further fluids for blood pressure management. Low clinical suspicion for sepsis at this time. 2. Suicide attempt/depression Patient does report depression recently. Patient will need crisis evaluation prior to discharge. Patient will be placed on suicide precautions. 3. Alcoholism/probable withdrawal syndrome Patient with extensive alcohol history. High clinical suspicion for the development of withdrawal over the next 24 to 48 hours. Unfortunately, patient's blood pressure is significantly low to prevent use of Librium at this time. Will place patient on CIWA protocol. Continue to monitor closely. 4. Acute kidney injury Clinical suspicion for prerenal etiology secondary to hypotension and possible dehydration. Patient does have a history of alcoholism. Patient did receive significant fluids on presentation. We will continue to monitor. Patient did have some hyperkalemia, but no EKG changes are noted at this time. Continue to monitor. No indication for renal replacement therapy at this time. 5. Chronic diastolic congestive heart failure/morbid obesity/depression/recent hospitalization Complicates care, management, recovery and prognosis. Does not appear the patient has recurrent cellulitis of lower extremities. Hold baseline blood pressure medications. Patient will need crisis evaluation. Patient does report that he would like to remain a full code at this time. Code Visit Inpatient E&M: 55759 Init Hosp L3
--- NOTE | 2019-04-11 16:09 | CON.PCM_ITS ---
Problem List (1) Overdose of beta-adrenergic antagonist drug Status: Acute Qualifiers: Encounter type: initial encounter Injury intent: intentional self-harm Qualified Code(s): T44.7X2A - Poisoning by beta-adrenoreceptor antagonists, intentional self-harm, initial encounter (2) Shortness of breath Status: Acute (3) Venous stasis dermatitis Status: Acute Qualifiers: Laterality: bilateral Qualified Code(s): I87.2 - Venous insufficiency (chronic) (peripheral) (4) Beta jey toxicity Status: Acute (5) Hyponatremia Status: Acute (6) Chest pain Status: Acute (7) Alcohol abuse Status: Chronic Reason for Consult Date of Consultation: 04/11/19 Reason for Consultation: Hypotension History of Present Illness: The patient is a 53 year old M, with past medical history listed below, who presented to [facility] ED on 04/11/2019 secondary to feeling fatigued and emesis. Patient reportedly woke up this morning at approximately 5:30 AM and was not feeling well. Patient was noted to be sweaty and not his normal self. Patient called his son and the son had brought the patient in for evaluation. Patient reportedly does not have a primary care physician, but is treated with carvedilol and an DANYELLE inhibitor at home for hypertension. Patient was recently admitted to the hospital secondary to hypertensive urgency and bacteremia from a lower extremity leg wound. In the emergency room, patient was noted to have a heart rate of 52 and a blood pressure of 69/45 saturating well on room air. Physical exam did show 4+ lower extremity edema with venous stasis changes. Chest x-ray was suggestive of a widened mediastinum, so CT angios of the chest abdomen and pelvis did not show any dissection or pulmonary embolism. There was some small fluid around the gallbladder and liver. Later in patient's ER course, patient states that he did become depressed overnight and had woken up with an empty bottle of blood pressure medications at the bedside. Patient is unclear on what this medication was. Patient does admit that he has been significantly depressed recently secondary to an inability to move around. Patient denies any history of trying to hurt himself previously. Patient states he is remorseful. On arrival to the intensive care unit, patient was noted to have a flat affect. Patient was bradycardic and blood pressures were marginal. Patient denied any pain or dyspnea. Patient reported that overall he felt subjectively unchanged compared to previous. Patient did admit to taking the medications, but states he has no intention of hurting himself at this time. Patient would like full measures if necessary. Patient does report a 5-pack-year smoking history, but is never had pulmonary function test previously. Patient does report lower extremity swelling at baseline, but feels this is worse over the last 2 to 4 weeks. Patient reports he did take antibiotics as prescribed. Patient denies any illicit drug use, but reports drinking 15 to 30 cans of beer a day. Patient does admit to becoming shaky if he does not drink, but denies any history of DTs. Review of systems otherwise negative x10 systems. Past Medical History Past Medical History (Chronic Problems): Chronic Problems Hypertension (Chronic) Alcohol abuse (Chronic) Allergies No Known Allergies Allergy (Verified 04/11/19 11:12) Home Medications: Ambulatory Orders Medication Instructions Recorded Carvedilol [Coreg] 3.125 mg PO BID #60 tablet 02/14/19 Lisinopril [Prinivil] 10 mg PO DAILY #30 tablet 02/14/19 Surgical History: no surgical history Psychiatric History: No pertinent psych hx Lives: With Family Smoking Status: Former smoker Tobacco Use: Non-smoker Alcohol: None Drugs: None - *Family History Maternal History Items: Heart Disease Paternal History Items: Heart Disease Review of Systems Comment: See HPI Patient Problems: Active and Suspected Problems Shock (Acute) Beta jey toxicity (Acute) Overdose of beta-adrenergic antagonist drug (Acute) Objective: CT of the chest was personally reviewed. Patient does not have significant emphysematous changes. There is some basilar atelectasis. Patient also had a gallbladder ultrasound showing hepatomegaly with fatty liver and thickened gallbladder wall. - Physical Exam General: Alert, Oriented x3, Cooperative, No apparent distress, - - Morbidly obese. No conversational dyspnea. HEENT: Atraumatic, PERRLA, EOMI, Normocephalic, - - No scleral icterus, but does have injection Oral: Moist Mucosa, No Gingival or Mucosal Lesions/ Ulcerations Neck: Supple, No Nodes, Trachea Midline, - - JVD difficult to assess secondary to body habitus Lungs: No rhonchi, No wheeze, No rales, Diminished Cardiovascular: Normal S1, Normal S2, No murmurs, Bradycardic - Sinus bradycardia on telemetry, No rub noted, No Gallop Abdomen: Bowel Sounds Present, Soft, Non Tender, Non-Distended, Obese Extremities: No clubbing, No cyanosis, Diminished Peripheral Pulses, Edema - 2+ lower extremity edema Skin: - - Significant venous stasis changes of the lower extremities. Some cracking noted of the right lower extremity skin. This is not associated with erythema or exudate. Musculoskeletal: No Tenderness to Palpation of Joints or Extremities Lymphatic: No Cervical, Supraclavicular, or Inguinal Adenopathy Neurological: Cranial nerves II-XII grossly intact, Neuro grossly intact, - - Slightly decreased sensation of bilateral lower extremities Psych/Mental Status: Flat Affect Vital Signs Temp Pulse Resp BP Pulse Ox 36.5 C L 45 L 20 H 80/57 L 94 04/11/19 13:05 04/11/19 13:04 04/11/19 13:04 04/11/19 13:04 04/11/19 13:04 Oxygen Flow Rate (L/min) 2 Oxygen Delivery Method Nasal Cannula Weight: 128.8 kg Body Mass Index (BMI) 45.8 Laboratory Tests Past 24 Hrs 04/11/19 04/11/19 04/11/19 11:30 11:30 11:30 WBC 11.3 H RBC 4.48 L Hgb 13.8 Hct 39.9 L MCV 89.1 MCH 30.8 MCHC 34.6 RDW 13.9 RDW Differential 45.3 H Plt Count 193 MPV 9.0 Immature Gran % (Auto) 0.400 Neut % (Auto) 75.7 H Lymph % (Auto) 16.1 L [place] % (Auto) 5.9 Eos % (Auto) 1.4 Baso % (Auto) 0.5 Absolute Neuts (auto) 8.5 H Absolute Lymphs (auto) 1.82 Total Counted Not Reportable PT 14.2 INR 1.1 APTT 30.9 Sodium 132 L Potassium 5.6 H Chloride 98 Carbon Dioxide 18.0 L Anion Gap 16 H BUN 14 Creatinine 2.25 H Estim Creat Clear Calc 33.87 Est GFR (MDRD) Af Amer 39 L Est GFR (MDRD) Non-Af 32 L BUN/Creatinine Ratio 6.2 L Glucose 142 H Lactic Acid Calcium 8.0 L Total Bilirubin 1.10 H AST 43 H ALT 54 Alkaline Phosphatase 108 Troponin I < 0.015 Total Protein 7.4 Albumin 3.3 Globulin 4.1 Albumin/Globulin Ratio 0.8 L Urine Color Urine Clarity Urine pH Ur Specific [place] Urine Protein Urine Glucose (UA) Urine Ketones Urine Occult Blood Urine Nitrite Urine Bilirubin Urine Urobilinogen Ur Leukocyte Esterase Urine RBC Urine WBC Ur Squamous Epith Cells Amorphous Sediment Urine Bacteria Urine Mucus Ethyl Alcohol 04/11/19 04/11/19 04/11/19 11:30 13:40 14:05 WBC RBC Hgb Hct MCV MCH MCHC RDW RDW Differential Plt Count MPV Immature Gran % (Auto) Neut % (Auto) Lymph % (Auto) [place] % (Auto) Eos % (Auto) Baso % (Auto) Absolute Neuts (auto) Absolute Lymphs (auto) Total Counted PT INR APTT Sodium Potassium Chloride Carbon Dioxide Anion Gap BUN Creatinine Estim Creat Clear Calc Est GFR (MDRD) Af Amer Est GFR (MDRD) Non-Af BUN/Creatinine Ratio Glucose Lactic Acid 2.6 H Calcium Total Bilirubin AST ALT Alkaline Phosphatase Troponin I Total Protein Albumin Globulin Albumin/Globulin Ratio Urine Color Yellow Urine Clarity Clear Urine pH 5.0 Ur Specific [place] 1.010 Urine Protein 30 H Urine Glucose (UA) Normal Urine Ketones Negative Urine Occult Blood Negative Urine Nitrite Negative Urine Bilirubin Negative Urine Urobilinogen Normal Ur Leukocyte Esterase Negative Urine RBC 0 SEEN Urine WBC 0 SEEN Ur Squamous Epith Cells 0 SEEN Amorphous Sediment 1+ Urine Bacteria 0 SEEN Urine Mucus 0 SEEN Ethyl Alcohol 79.0 04/11/19 04/11/19 14:05 14:05 WBC RBC Hgb Hct MCV MCH MCHC RDW RDW Differential Plt Count MPV Immature Gran % (Auto) Neut % (Auto) Lymph % (Auto) [place] % (Auto) Eos % (Auto) Baso % (Auto) Absolute Neuts (auto) Absolute Lymphs (auto) Total Counted PT INR APTT Sodium Potassium Chloride Carbon Dioxide Anion Gap BUN Creatinine Estim Creat Clear Calc Est GFR (MDRD) Af Amer Est GFR (MDRD) Non-Af BUN/Creatinine Ratio Glucose Lactic Acid 2.0 Calcium Total Bilirubin AST ALT Alkaline Phosphatase Troponin I < 0.015 Total Protein Albumin Globulin Albumin/Globulin Ratio Urine Color Urine Clarity Urine pH Ur Specific [place] Urine Protein Urine Glucose (UA) Urine Ketones Urine Occult Blood Urine Nitrite Urine Bilirubin Urine Urobilinogen Ur Leukocyte Esterase Urine RBC Urine WBC Ur Squamous Epith Cells Amorphous Sediment Urine Bacteria Urine Mucus Ethyl Alcohol Clinical Impression(s) from Imaging Studies Chest X-Ray 04/11/19 11:19 IMPRESSION: Mild cardiomegaly. Mild degree of vascular congestion. Electronically Signed: Jason Chelsea, at 13:02 EDT , Service support , Abdomen CTA 04/11/19 12:34 IMPRESSION: Hepatomegaly and fatty infiltration of the liver. Minimal amount of free fluid along the inferior medial aspect of the liver. Small amount of pericholecystic fluid. Right renal cyst. Electronically Signed: Jason Tran, at 13:32 EDT , Service support , ADDENDUM: 04/11/19 1514 Chest CTA 04/11/19 12:34 IMPRESSION: Linear atelectasis and/or scarring at the lung bases. Fatty infiltration of the liver. Electronically Signed: Jason Tran, at 13:35 EDT , Service support , Gallbladder Ultrasound 04/11/19 13:41 IMPRESSION: Hepatomegaly. Fatty attrition of the liver. Thickened gallbladder wall. Small amount of pericholecystic fluid. Electronically Signed: Jason Tran, at 15:13 EDT , Service support , Assessment/Plan Active and Suspected Problems Shock (Acute) Beta jey toxicity (Acute) Overdose of beta-adrenergic antagonist drug (Acute) RECOMMENDATIONS: 1. Hold on further fluid boluses 2. Initiate peripheral dopamine if necessary 3. Initiate CIWA protocol 4. Okay to start Librium if blood pressure improves 5. Suicide precautions IMPRESSIONS: 1. Hypotension/bradycardia secondary to intentional self-harm overdose of probable beta-jey Patient's blood pressure is acceptable at this time. Patient did receive glucagon in the ER. High clinical suspicion that patient has bradycardia and hypotension secondary to overdose of carvedilol. Will provide supportive therapy. Patient can be initiated on dopamine peripherally transiently if necessary. Would not recommend giving further fluids for blood pressure management. Low clinical suspicion for sepsis at this time. 2. Suicide attempt/depression Patient does report depression recently. Patient will need crisis e valuation prior to discharge. Patient will be placed on suicide precautions. 3. Alcoholism/probable withdrawal syndrome Patient with extensive alcohol history. High clinical suspicion for the development of withdrawal over the next 24 to 48 hours. Unfortunately, patient's blood pressure is significantly low to prevent use of Librium at this time. Will place patient on CIWA protocol. Continue to monitor closely. 4. Acute kidney injury Clinical suspicion for prerenal etiology secondary to hypotension and possible dehydration. Patient does have a history of alcoholism. Patient did receive significant fluids on presentation. We will continue to monitor. Patient did have some hyperkalemia, but no EKG changes are noted at this time. Continue to monitor. No indication for renal replacement therapy at this time. 5. Chronic diastolic congestive heart failure/morbid obesity/depression/recent hospitalization Complicates care, management, recovery and prognosis. Does not appear the patient has recurrent cellulitis of lower extremities. Hold baseline blood pressure medications. Patient will need crisis evaluation. Patient does report that he would like to remain a full code at this time. Code Visit Inpatient E&M: 57157 Init Hosp L3
[2019-04-11] MEDS: Magnesium Hydroxide 30 ML UDC PO (16:34)
[2019-04-11 17:02] LABS: Anion Gap 10 (5-15); BUN 17 mg/dL (7-18); BUN/Creat Ratio 6.7 RATIO (10-20); Calcium,Total 7.5 mg/dL (8.5-10.1); Chloride 99 mmol/L (98-107); Creatinine, Serum 2.55 mg/dL (0.70-1.30); EST Glomerular Filtration Rate 28 mL/min (>60); Est Glom Filt Rate - Afr Amer 34 mL/min (>60); Estimated Creatinine Clearance 29.88 ml/min; Glucose 167 mg/dL (74-106); Potassium 5.3 mmol/L (3.5-5.1); Sodium Level 129 mmol/L (136-145)
[2019-04-11 18:09] LABS: Reflex Lactate? Y
[2019-04-11] MEDS: Thiamine Hydrochloride 100 MG Tablet PO (19:23)
[2019-04-11] MEDS: 0.9% Normal Saline 1,000 ML 75 ML IV (20:30)
[2019-04-11 20:42] LABS: Anion Gap 11 (5-15); BUN 21 mg/dL (7-18); BUN/Creat Ratio 7.3 RATIO (10-20); Calcium,Total 7.5 mg/dL (8.5-10.1); Chloride 99 mmol/L (98-107); Creatinine, Serum 2.87 mg/dL (0.70-1.30); EST Glomerular Filtration Rate 25 mL/min (>60); Est Glom Filt Rate - Afr Amer 30 mL/min (>60); Estimated Creatinine Clearance 26.55 ml/min; Glucose 125 mg/dL (74-106); Potassium 5.9 mmol/L (3.5-5.1); Sodium Level 131 mmol/L (136-145)
[2019-04-11] MEDS: Heparin Injection (Vial) 5,000 UNIT/ML VIAL 5000 UNIT SC (21:48)
[2019-04-11] MEDS: 0.9% NaCl Peripheral Flush Adult/Peds IV (21:48)
[2019-04-12] VITALS (22 sets, daily range): BP systolic 92–112; BP diastolic 54–70; PULSE 44–68; RESP 13–19; TEMP 35.7–36.8; O2SAT 94–98
[2019-04-12 00:32] LABS: Anion Gap 8 (5-15); BUN 24 mg/dL (7-18); BUN/Creat Ratio 7.7 RATIO (10-20); Calcium,Total 7.4 mg/dL (8.5-10.1); Chloride 99 mmol/L (98-107); Creatinine, Serum 3.13 mg/dL (0.70-1.30); EST Glomerular Filtration Rate 22 mL/min (>60); Est Glom Filt Rate - Afr Amer 27 mL/min (>60); Estimated Creatinine Clearance 24.35 ml/min; Glucose 123 mg/dL (74-106); Potassium 6.6 mmol/L (3.5-5.1); Sodium Level 128 mmol/L (136-145)
[2019-04-12] MEDS: 0.9% Normal Saline 1,000 ML 125 ML IV ×4 (01:07→22:42)
[2019-04-12] MEDS: Sodium Polystyrene Sulfonate 15 GM/60 ML UDC 30 GM PO ×2 (01:07→05:08)
[2019-04-12 03:50] LABS: Absolute Lymphocyte Count 1.75 X10^3/ul (0.83-4.51); Absolute Neutrophil Count 10.9 X10^3/uL (2.0-7.7); Basophil# 0.03 X10^3/uL; Basophil% 0.2 % (0-1); Eosinophil# 0.05 X10^3/uL; Eosinophils% 0.4 % (0-5); Hematocrit 37.9 % (40-54); Hemoglobin 12.9 g/dl (13.0-16.5); Lymphocyte # 1.75 X10^3/ul (4.0); Lymphocyte % 12.5 % (19-41); Mean Corpuscular Hgb 30.4 pg (27.0-32.0); Mean Corpuscular Volume 89.4 fL (80-94); Mean Platelet Vol. 9.1 fl (6.2-12.0); Monocyte# 1.27 X10^3/uL; Monocyte% 9.1 % (0-10); Neutrophil # 10.85 X10^3/uL (2.7-7.7); Neutrophil % 77.5 % (47-70); POSITIVE COUNT NO; POSITIVE DIFFERENTIAL NO; POSITIVE MORPHOLOGY NO; Platelet Count 186 K/mm3 (150-450); RBC Distribution Width CV 13.8 % (11.6-14.6); RBC Distribution Width SD 43.7 fl (35.1-43.9); Red Blood Count 4.24 M/mm3 (4.6-6.2)
[2019-04-12 04:24] LABS: ALB/GLOB Ratio 0.8 RATIO (0.9-2.4); AST(SGOT) 48 U/L (15-37); Alanine Aminotransfer ALT/SGPT 64 U/L (16-61); Albumin, Serum 2.9 g/dL (3.2-5.0); Alkaline Phosphatase 92 U/L (45-117); Anion Gap 11 (5-15); BUN 28 mg/dL (7-18); BUN/Creat Ratio 8.4 RATIO (10-20); Calcium,Total 7.2 mg/dL (8.5-10.1); Chloride 100 mmol/L (98-107); Creatinine, Serum 3.32 mg/dL (0.70-1.30); EST Glomerular Filtration Rate 21 mL/min (>60); Est Glom Filt Rate - Afr Amer 25 mL/min (>60); Estimated Creatinine Clearance 22.95 ml/min; Globulin 3.6 g/dL (2.2-4.2); Glucose 110 mg/dL (74-106); Protein, Total 6.5 g/dL (6.4-8.2); Sodium Level 133 mmol/L (136-145)
[2019-04-12] MEDS: Heparin Injection (Vial) 5,000 UNIT/ML VIAL 5000 UNIT SC ×3 (05:08→21:12)
--- NOTE | 2019-04-12 05:55 | US_ITS ---
STUDY: RENAL ULTRASOUND - COMPLETE REASON FOR EXAM: Male, 53 years old. Acute renal failure. TECHNIQUE: Ultrasound evaluation of the kidneys was performed with real-time and static lake-scale imaging. COMPARISON: CTA abdomen April 11, 2019. FINDINGS: RIGHT KIDNEY: Normal location of the right kidney, which is normal in size. The right kidney measures 12.7 x 6.3 x 5.8 cm. There is a normal cortex of the right kidney. The renal cortex measures 1.6 cm. 4.6 x 3.7 x 1.7 cm exophytic cortical cyst noted at the anterolateral mid to lower pole. There are no right renal calculi. There is no right hydronephrosis. DISTAL RIGHT URETER: There is non-visualization of the distal right ureter. There is no demonstrated right ureterovesical junction calculus. There is no demonstrated right ureteral jet. LEFT KIDNEY: Normal location of the left kidney, which is normal in size. The left kidney measures 12.8 x 6.6 x 5.3 cm. There is a normal cortex of the left kidney. The renal cortex measures 1.6 cm. There is no left renal mass or cyst. There are no left renal calculi. There is no left hydronephrosis. DISTAL LEFT URETER: There is non-visualization of the distal left ureter. There is no demonstrated left ureterovesical junction calculus. There is no demonstrated left ureteral jet. BLADDER: The urinary bladder is collapsed around a Chung catheter, precluding evaluation. US/Kidney and Bladder IMPRESSION: 1. 4.6 cm cortical cyst at the mid to lower pole of the right kidney, otherwise normal ultrasound of the kidneys. 2. The urinary bladder is collapsed around a Chung catheter.. Electronically Signed: Vinnie Haynes MD at 14:30 EDT , Service support ,
[2019-04-12] MEDS: Polyethylene Glycol 3350 17 GM PACKET PO (06:41)
--- NOTE | 2019-04-12 06:53 | PCM.PN.INT ---
Subjective: Patient did okay overnight. Patient has had decreased urine output, but blood pressure is improving. Patient still remains relatively bradycardic. Patient did require 2 L nasal cannula with sleep, but nursing thought this was secondary to apneic events. Patient has received 60 g of Kayexalate overnight secondary to hyperkalemia. Patient does not report a history of renal dysfunction in the past. Patient has not received significant Ativan overnight for elevated CIWA protocol values. General: Alert, Oriented x3, Cooperative, No apparent distress, - - Morbidly obese. Speaking in full sentences. HEENT: Atraumatic, PERRLA, EOMI, Normocephalic, - - Scleral injection without icterus Oral: Moist Mucosa, No Gingival or Mucosal Lesions/ Ulcerations Neck: Supple, No Nodes, Trachea Midline, JVD, Right Lungs: No rhonchi, No wheeze, No rales, Diminished, - - Symmetric expansion. No dullness to percussion. Cardiovascular: Normal S1, Normal S2, No murmurs, Bradycardic, No rub noted, No Gallop, - Abdomen: Bowel Sounds Present, Soft, Non Tender, Distended, Obese Extremities: No clubbing, No cyanosis, Edema Skin: - - No significant change compared to previous Musculoskeletal: No Tenderness to Palpation of Joints or Extremities Lymphatic: No Cervical, Supraclavicular, or Inguinal Adenopathy Neurological: Cranial nerves II-XII grossly intact, Neuro grossly intact, Motor Exam 5/5 strength throughout Psych/Mental Status: Appropriate, Flat Affect Vital Signs Temp Pulse Resp BP Pulse Ox 36.8 C 49 L 16 92/70 98 04/12/19 05:00 04/12/19 06:00 04/12/19 06:00 04/12/19 06:00 04/12/19 06:00 Oxygen Flow Rate (L/min) 2 Oxygen Delivery Method Nasal Cannula Weight: 129.3 kg Body Mass Index (BMI) 45.8 Intake and Output for Last 24 Hours 04/10/19 04/11/19 04/12/19 23:59 23:59 23:59 Intake Total 4441 / 4441 848 / 848 Output Total 50 / 50 100 / 100 Balance 4391 / 4391 748 / 748 Labs (Last 48 Hours) 04/11/19 04/11/19 04/11/19 11:30 11:30 11:30 WBC 11.3 H RBC 4.48 L Hgb 13.8 Hct 39.9 L MCV 89.1 MCH 30.8 MCHC 34.6 RDW 13.9 RDW Differential 45.3 H Plt Count 193 MPV 9.0 Immature Gran % (Auto) 0.400 Neut % (Auto) 75.7 H Lymph % (Auto) 16.1 L [place] % (Auto) 5.9 Eos % (Auto) 1.4 Baso % (Auto) 0.5 Absolute Neuts (auto) 8.5 H Absolute Lymphs (auto) 1.82 Total Counted Not Reportable PT 14.2 INR 1.1 APTT 30.9 Sodium 132 L Potassium 5.6 H Chloride 98 Carbon Dioxide 18.0 L Anion Gap 16 H BUN 14 Creatinine 2.25 H Estim Creat Clear Calc 33.87 Est GFR (MDRD) Af Amer 39 L Est GFR (MDRD) Non-Af 32 L BUN/Creatinine Ratio 6.2 L Glucose 142 H Lactic Acid Calcium 8.0 L Total Bilirubin 1.10 H AST 43 H ALT 54 Alkaline Phosphatase 108 Troponin I < 0.015 Total Protein 7.4 Albumin 3.3 Globulin 4.1 Albumin/Globulin Ratio 0.8 L Urine Color Urine Clarity Urine pH Ur Specific [place] Urine Protein Urine Glucose (UA) Urine Ketones Urine Occult Blood Urine Nitrite Urine Bilirubin Urine Urobilinogen Ur Leukocyte Esterase Urine RBC Urine WBC Ur Squamous Epith Cells Amorphous Sediment Urine Bacteria Urine Mucus Ethyl Alcohol 04/11/19 04/11/19 04/11/19 11:30 13:40 14:05 WBC RBC Hgb Hct MCV MCH MCHC RDW RDW Differential Plt Count MPV Immature Gran % (Auto) Neut % (Auto) Lymph % (Auto) [place] % (Auto) Eos % (Auto) Baso % (Auto) Absolute Neuts (auto) Absolute Lymphs (auto) Total Counted PT INR APTT Sodium Potassium Chloride Carbon Dioxide Anion Gap BUN Creatinine Estim Creat Clear Calc Est GFR (MDRD) Af Amer Est GFR (MDRD) Non-Af BUN/Creatinine Ratio Glucose Lactic Acid 2.6 H Calcium Total Bilirubin AST ALT Alkaline Phosphatase Troponin I Total Protein Albumin Globulin Albumin/Globulin Ratio Urine Color Yellow Urine Clarity Clear Urine pH 5.0 Ur Specific [place] 1.010 Urine Protein 30 H Urine Glucose (UA) Normal Urine Ketones Negative Urine Occult Blood Negative Urine Nitrite Negative Urine Bilirubin Negative Urine Urobilinogen Normal Ur Leukocyte Esterase Negative Urine RBC 0 SEEN Urine WBC 0 SEEN Ur Squamous Epith Cells 0 SEEN Amorphous Sediment 1+ Urine Bacteria 0 SEEN Urine Mucus 0 SEEN Ethyl Alcohol 79.0 04/11/19 04/11/19 04/11/19 14:05 14:05 16:30 WBC RBC Hgb Hct MCV MCH MCHC RDW RDW Differential Plt Count MPV Immature Gran % (Auto) Neut % (Auto) Lymph % (Auto) [place] % (Auto) Eos % (Auto) Baso % (Auto) Absolute Neuts (auto) Absolute Lymphs (auto) Total Counted PT INR APTT Sodium 129 L Potassium 5.3 H Chloride 99 Carbon Dioxide 20.0 L Anion Gap 10 BUN 17 Creatinine 2.55 H Estim Creat Clear Calc 29.88 Est GFR (MDRD) Af Amer 34 L Est GFR (MDRD) Non-Af 28 L BUN/Creatinine Ratio 6.7 L Glucose 167 H Lactic Acid 2.0 Calcium 7.5 L Total Bilirubin AST ALT Alkaline Phosphatase Troponin I < 0.015 Total Protein Albumin Globulin Albumin/Globulin Ratio Urine Color Urine Clarity Urine pH Ur Specific [place] Urine Protein Urine Glucose (UA) Urine Ketones Urine Occult Blood Urine Nitrite Urine Bilirubin Urine Urobilinogen Ur Leukocyte Esterase Urine RBC Urine WBC Ur Squamous Epith Cells Amorphous Sediment Urine Bacteria Urine Mucus Ethyl Alcohol 04/11/19 04/11/19 04/11/19 16:30 20:15 23:57 WBC RBC Hgb Hct MCV MCH MCHC RDW RDW Differential Plt Count MPV Immature Gran % (Auto) Neut % (Auto) Lymph % (Auto) [place] % (Auto) Eos % (Auto) Baso % (Auto) Absolute Neuts (auto) Absolute Lymphs (auto) Total Counted PT INR APTT Sodium 131 L 128 L Potassium 5.9 H 6.6 H* Chloride 99 99 Carbon Dioxide 21.0 21.0 Anion Gap 11 8 BUN 21 H 24 H Creatinine 2.87 H 3.13 H Estim Creat Clear Calc 26.55 24.35 Est GFR (MDRD) Af Amer 30 L 27 L Est GFR (MDRD) Non-Af 25 L 22 L BUN/Creatinine Ratio 7.3 L 7.7 L Glucose 125 H 123 H Lactic Acid Calcium 7.5 L 7.4 L Total Bilirubin AST ALT Alkaline Phosphatase Troponin I < 0.015 Total Protein Albumin Globulin Albumin/Globulin Ratio Urine Color Urine Clarity Urine pH Ur Specific [place] Urine Protein Urine Glucose (UA) Urine Ketones Urine Occult Blood Urine Nitrite Urine Bilirubin Urine Urobilinogen Ur Leukocyte Esterase Urine RBC Urine WBC Ur Squamous Epith Cells Amorphous Sediment Urine Bacteria Urine Mucus Ethyl Alcohol 04/12/19 04/12/19 03:40 03:40 WBC 14.0 H RBC 4.24 L Hgb 12.9 L Hct 37.9 L MCV 89.4 MCH 30.4 MCHC 34.0 RDW 13.8 RDW Differential 43.7 Plt Count 186 MPV 9.1 Immature Gran % (Auto) 0.300 Neut % (Auto) 77.5 H Lymph % (Auto) 12.5 L [place] % (Auto) 9.1 Eos % (Auto) 0.4 Baso % (Auto) 0.2 Absolute Neuts (auto) 10.9 H Absolute Lymphs (auto) 1.75 Total Counted Not Reportable PT INR APTT Sodium 133 L Potassium 6.0 H* Chloride 100 Carbon Dioxide 22.0 Anion Gap 11 BUN 28 H Creatinine 3.32 H Estim Creat Clear Calc 22.95 Est GFR (MDRD) Af Amer 25 L Est GFR (MDRD) Non-Af 21 L BUN/Creatinine Ratio 8.4 L Glucose 110 H Lactic Acid Calcium 7.2 L Total Bilirubin 1.00 AST 48 H ALT 64 H Alkaline Phosphatase 92 Troponin I Total Protein 6.5 Albumin 2.9 L Globulin 3.6 Albumin/Globulin Ratio 0.8 L Urine Color Urine Clarity Urine pH Ur Specific [place] Urine Protein Urine Glucose (UA) Urine Ketones Urine Occult Blood Urine Nitrite Urine Bilirubin Urine Urobilinogen Ur Leukocyte Esterase Urine RBC Urine WBC Ur Squamous Epith Cells Amorphous Sediment Urine Bacteria Urine Mucus Ethyl Alcohol Clinical Impression(s) from Imaging Studies Chest X-Ray 04/11/19 11:19 IMPRESSION: Mild cardiomegaly. Mild degree of vascular congestion. Electronically Signed: Jason Tran, at 13:02 EDT , Service support , Abdomen CTA 04/11/19 12:34 IMPRESSION: Hepatomegaly and fatty infiltration of the liver. Minimal amount of free fluid along the inferior medial aspect of the liver. Small amount of pericholecystic fluid. Right renal cyst. Electronically Signed: Jason Deckernatanael, at 13:32 EDT , Service support , ADDENDUM: 04/11/19 1514 Chest CTA 04/11/19 12:34 IMPRESSION: Linear atelectasis and/or scarring at the lung bases. Fatty infiltration of the liver. Electronically Signed: Jason Chelsea, at 13:35 EDT , Service support , Gallbladder Ultrasound 04/11/19 13:41 IMPRESSION: Hepatomegaly. Fatty attrition of the liver. Thickened gallbladder wall. Small amount of pericholecystic fluid. Electronically Signed: Jason Chelsea, at 15:13 EDT , Service support , Medical Necessity - Tobacco Use Smoking Status: Former smoker Tobacco Use: Non-smoker Assessment/Plan All Active Problems Shortness of breath (Acute) Venous stasis dermatitis (Acute) Shock (Acute) Beta jey toxicity (Acute) Overdose of beta-adrenergic antagonist drug (Acute) Elevated blood pressure (Acute) Hyponatremia (Acute) Chest pain (Acute) RECOMMENDATIONS: 1. Consult nephrology 2. Initiate peripheral dopamine if necessary 3. Initiate CIWA protocol 4. Okay to start Librium if blood pressure improves 5. Suicide precautions IMPRESSIONS: 1. Hypotension/bradycardia secondary to intentional self-harm overdose of probable beta-jey Patient's blood pressure is acceptable at this time. Patient did receive glucagon in the ER. High clinical suspicion that patient has bradycardia and hypotension secondary to overdose of carvedilol, but this cannot be verified. Will provide supportive therapy. Doubt patient will require pressor therapy at this point. Would not recommend giving further fluids for blood pressure management. Low clinical suspicion for sepsis at this time. 2. Suicide attempt/depression Patient does report depression recently. Patient will need crisis evaluation prior to discharge. Patient will be placed on suicide precautions. 3. Alcoholism/probable withdrawal syndrome Patient with extensive alcohol history. High clinical suspicion for the development of withdrawal over the next 24 to 48 hours. Patient appears to be doing well at this time, but will continue with CIWA protocol. Continue to monitor closely. 4. Acute kidney injury/hypovolemic hyponatremia/hyperkalemia Patient volume depleted on presentation and hypotensive. Unclear how long patient was hypotensive. Patient may have an element of ATN secondary to this hypotension, exacerbated by baseline DANYELLE inhibitor. Marginal urine output at this time. Patient has had hyperkalemia and was given Kayexalate, but no bowel movement. Patient will be given MiraLAX. Nephrology has been consulted. Unclear if patient would benefit from a bicarbonate drip as his bicarb is still 22. 5. Chronic diastolic congestive heart failure/morbid obesity/depression/recent hospitalization Complicates care, management, recovery and prognosis. Does not appear the patient has recurrent cellulitis of lower extremities. Hold baseline blood pressure medications. Patient will need crisis evaluation. Patient does report that he would like to remain a full code at this time. Code Visit Inpatient E&M: [id number] [facility] Hosp L3
--- NOTE | 2019-04-12 06:58 | PN_ITS ---
Subjective: Patient did okay overnight. Patient has had decreased urine output, but blood pressure is improving. Patient still remains relatively bradycardic. Patient did require 2 L nasal cannula with sleep, but nursing thought this was secondary to apneic events. Patient has received 60 g of Kayexalate overnight secondary to hyperkalemia. Patient does not report a history of renal dysfunction in the past. Patient has not received significant Ativan overnight for elevated CIWA protocol values. General: Alert, Oriented x3, Cooperative, No apparent distress, - - Morbidly obese. Speaking in full sentences. HEENT: Atraumatic, PERRLA, EOMI, Normocephalic, - - Scleral injection without icterus Oral: Moist Mucosa, No Gingival or Mucosal Lesions/ Ulcerations Neck: Supple, No Nodes, Trachea Midline, JVD, Right Lungs: No rhonchi, No wheeze, No rales, Diminished, - - Symmetric expansion. No dullness to percussion. Cardiovascular: Normal S1, Normal S2, No murmurs, Bradycardic, No rub noted, No Gallop, - Abdomen: Bowel Sounds Present, Soft, Non Tender, Distended, Obese Extremities: No clubbing, No cyanosis, Edema Skin: - - No significant change compared to previous Musculoskeletal: No Tenderness to Palpation of Joints or Extremities Lymphatic: No Cervical, Supraclavicular, or Inguinal Adenopathy Neurological: Cranial nerves II-XII grossly intact, Neuro grossly intact, Motor Exam 5/5 strength throughout Psych/Mental Status: Appropriate, Flat Affect Vital Signs Temp Pulse Resp BP Pulse Ox 36.8 C 49 L 16 92/70 98 04/12/19 05:00 04/12/19 06:00 04/12/19 06:00 04/12/19 06:00 04/12/19 06:00 Oxygen Flow Rate (L/min) 2 Oxygen Delivery Method Nasal Cannula Weight: 129.3 kg Body Mass Index (BMI) 45.8 Intake and Output for Last 24 Hours 04/10/19 04/11/19 04/12/19 23:59 23:59 23:59 Intake Total 4441 / 4441 848 / 848 Output Total 50 / 50 100 / 100 Balance 4391 / 4391 748 / 748 Labs (Last 48 Hours) 04/11/19 04/11/19 04/11/19 11:30 11:30 11:30 WBC 11.3 H RBC 4.48 L Hgb 13.8 Hct 39.9 L MCV 89.1 MCH 30.8 MCHC 34.6 RDW 13.9 RDW Differential 45.3 H Plt Count 193 MPV 9.0 Immature Gran % (Auto) 0.400 Neut % (Auto) 75.7 H Lymph % (Auto) 16.1 L [place] % (Auto) 5.9 Eos % (Auto) 1.4 Baso % (Auto) 0.5 Absolute Neuts (auto) 8.5 H Absolute Lymphs (auto) 1.82 Total Counted Not Reportable PT 14.2 INR 1.1 APTT 30.9 Sodium 132 L Potassium 5.6 H Chloride 98 Carbon Dioxide 18.0 L Anion Gap 16 H BUN 14 Creatinine 2.25 H Estim Creat Clear Calc 33.87 Est GFR (MDRD) Af Amer 39 L Est GFR (MDRD) Non-Af 32 L BUN/Creatinine Ratio 6.2 L Glucose 142 H Lactic Acid Calcium 8.0 L Total Bilirubin 1.10 H AST 43 H ALT 54 Alkaline Phosphatase 108 Troponin I < 0.015 Total Protein 7.4 Albumin 3.3 Globulin 4.1 Albumin/Globulin Ratio 0.8 L Urine Color Urine Clarity Urine pH Ur Specific [place] Urine Protein Urine Glucose (UA) Urine Ketones Urine Occult Blood Urine Nitrite Urine Bilirubin Urine Urobilinogen Ur Leukocyte Esterase Urine RBC Urine WBC Ur Squamous Epith Cells Amorphous Sediment Urine Bacteria Urine Mucus Ethyl Alcohol 04/11/19 04/11/19 04/11/19 11:30 13:40 14:05 WBC RBC Hgb Hct MCV MCH MCHC RDW RDW Differential Plt Count MPV Immature Gran % (Auto) Neut % (Auto) Lymph % (Auto) [place] % (Auto) Eos % (Auto) Baso % (Auto) Absolute Neuts (auto) Absolute Lymphs (auto) Total Counted PT INR APTT Sodium Potassium Chloride Carbon Dioxide Anion Gap BUN Creatinine Estim Creat Clear Calc Est GFR (MDRD) Af Amer Est GFR (MDRD) Non-Af BUN/Creatinine Ratio Glucose Lactic Acid 2.6 H Calcium Total Bilirubin AST ALT Alkaline Phosphatase Troponin I Total Protein Albumin Globulin Albumin/Globulin Ratio Urine Color Yellow Urine Clarity Clear Urine pH 5.0 Ur Specific [place] 1.010 Urine Protein 30 H Urine Glucose (UA) Normal Urine Ketones Negative Urine Occult Blood Negative Urine Nitrite Negative Urine Bilirubin Negative Urine Urobilinogen Normal Ur Leukocyte Esterase Negative Urine RBC 0 SEEN Urine WBC 0 SEEN Ur Squamous Epith Cells 0 SEEN Amorphous Sediment 1+ Urine Bacteria 0 SEEN Urine Mucus 0 SEEN Ethyl Alcohol 79.0 04/11/19 04/11/19 04/11/19 14:05 14:05 16:30 WBC RBC Hgb Hct MCV MCH MCHC RDW RDW Differential Plt Count MPV Immature Gran % (Auto) Neut % (Auto) Lymph % (Auto) [place] % (Auto) Eos % (Auto) Baso % (Auto) Absolute Neuts (auto) Absolute Lymphs (auto) Total Counted PT INR APTT Sodium 129 L Potassium 5.3 H Chloride 99 Carbon Dioxide 20.0 L Anion Gap 10 BUN 17 Creatinine 2.55 H Estim Creat Clear Calc 29.88 Est GFR (MDRD) Af Amer 34 L Est GFR (MDRD) Non-Af 28 L BUN/Creatinine Ratio 6.7 L Glucose 167 H Lactic Acid 2.0 Calcium 7.5 L Total Bilirubin AST ALT Alkaline Phosphatase Troponin I < 0.015 Total Protein Albumin Globulin Albumin/Globulin Ratio Urine Color Urine Clarity Urine pH Ur Specific [place] Urine Protein Urine Glucose (UA) Urine Ketones Urine Occult Blood Urine Nitrite Urine Bilirubin Urine Urobilinogen Ur Leukocyte Esterase Urine RBC Urine WBC Ur Squamous Epith Cells Amorphous Sediment Urine Bacteria Urine Mucus Ethyl Alcohol 04/11/19 04/11/19 04/11/19 16:30 20:15 23:57 WBC RBC Hgb Hct MCV MCH MCHC RDW RDW Differential Plt Count MPV Immature Gran % (Auto) Neut % (Auto) Lymph % (Auto) [place] % (Auto) Eos % (Auto) Baso % (Auto) Absolute Neuts (auto) Absolute Lymphs (auto) Total Counted PT INR APTT Sodium 131 L 128 L Potassium 5.9 H 6.6 H* Chloride 99 99 Carbon Dioxide 21.0 21.0 Anion Gap 11 8 BUN 21 H 24 H Creatinine 2.87 H 3.13 H Estim Creat Clear Calc 26.55 24.35 Est GFR (MDRD) Af Amer 30 L 27 L Est GFR (MDRD) Non-Af 25 L 22 L BUN/Creatinine Ratio 7.3 L 7.7 L Glucose 125 H 123 H Lactic Acid Calcium 7.5 L 7.4 L Total Bilirubin AST ALT Alkaline Phosphatase Troponin I < 0.015 Total Protein Albumin Globulin Albumin/Globulin Ratio Urine Color Urine Clarity Urine pH Ur Specific [place] Urine Protein Urine Glucose (UA) Urine Ketones Urine Occult Blood Urine Nitrite Urine Bilirubin Urine Urobilinogen Ur Leukocyte Esterase Urine RBC Urine WBC Ur Squamous Epith Cells Amorphous Sediment Urine Bacteria Urine Mucus Ethyl Alcohol 04/12/19 04/12/19 03:40 03:40 WBC 14.0 H RBC 4.24 L Hgb 12.9 L Hct 37.9 L MCV 89.4 MCH 30.4 MCHC 34.0 RDW 13.8 RDW Differential 43.7 Plt Count 186 MPV 9.1 Immature Gran % (Auto) 0.300 Neut % (Auto) 77.5 H Lymph % (Auto) 12.5 L [place] % (Auto) 9.1 Eos % (Auto) 0.4 Baso % (Auto) 0.2 Absolute Neuts (auto) 10.9 H Absolute Lymphs (auto) 1.75 Total Counted Not Reportable PT INR APTT Sodium 133 L Potassium 6.0 H* Chloride 100 Carbon Dioxide 22.0 Anion Gap 11 BUN 28 H Creatinine 3.32 H Estim Creat Clear Calc 22.95 Est GFR (MDRD) Af Amer 25 L Est GFR (MDRD) Non-Af 21 L BUN/Creatinine Ratio 8.4 L Glucose 110 H Lactic Acid Calcium 7.2 L Total Bilirubin 1.00 AST 48 H ALT 64 H Alkaline Phosphatase 92 Troponin I Total Protein 6.5 Albumin 2.9 L Globulin 3.6 Albumin/Globulin Ratio 0.8 L Urine Color Urine Clarity Urine pH Ur Specific [place] Urine Protein Urine Glucose (UA) Urine Ketones Urine Occult Blood Urine Nitrite Urine Bilirubin Urine Urobilinogen Ur Leukocyte Esterase Urine RBC Urine WBC Ur Squamous Epith Cells Amorphous Sediment Urine Bacteria Urine Mucus Ethyl Alcohol Clinical Impression(s) from Imaging Studies Chest X-Ray 04/11/19 11:19 IMPRESSION: Mild cardiomegaly. Mild degree of vascular congestion. Electronically Signed: Jason Tran, at 13:02 EDT , Service support , Abdomen CTA 04/11/19 12:34 IMPRESSION: Hepatomegaly and fatty infiltration of the liver. Minimal amount of free fluid along the inferior medial aspect of the liver. Small amount of pericholecystic fluid. Right renal cyst. Electronically Signed: Jason Deckernatanael, at 13:32 EDT , Service support , ADDENDUM: 04/11/19 1514 Chest CTA 04/11/19 12:34 IMPRESSION: Linear atelectasis and/or scarring at the lung bases. Fatty infiltration of the liver. Electronically Signed: Jason Chelsea, at 13:35 EDT , Service support , Gallbladder Ultrasound 04/11/19 13:41 IMPRESSION: Hepatomegaly. Fatty attrition of the liver. Thickened gallbladder wall. Small amount of pericholecystic fluid. Electronically Signed: Jason Chelsea, at 15:13 EDT , Service support , Medical Necessity - Tobacco Use Smoking Status: Former smoker Tobacco Use: Non-smoker Assessment/Plan All Active Problems Shortness of breath (Acute) Venous stasis dermatitis (Acute) Shock (Acute) Beta jey toxicity (Acute) Overdose of beta-adrenergic antagonist drug (Acute) Elevated blood pressure (Acute) Hyponatremia (Acute) Chest pain (Acute) RECOMMENDATIONS: 1. Consult nephrology 2. Initiate peripheral dopamine if necessary 3. Initiate CIWA protocol 4. Okay to start Librium if blood pressure improves 5. Suicide precautions IMPRESSIONS: 1. Hypotension/bradycardia secondary to intentional self-harm overdose of probable beta-jey Patient's blood pressure is acceptable at this time. Patient did receive glucagon in the ER. High clinical suspicion that patient has bradycardia and hypotension secondary to overdose of carvedilol, but this cannot be verified. Will provide supportive therapy. Doubt patient will require pressor therapy at this point. Would not recommend giving further fluids for blood pressure management. Low clinical suspicion for sepsis at this time. 2. Suicide attempt/depression Patient does report depression recently. Patient will need crisis evaluation prior to discharge. Patient will be placed on suicide precautions. 3. Alcoholism/probable withdrawal syndrome Patient with extensive alcohol history. High clinical suspicion for the development of withdrawal over the next 24 to 48 hours. Patient appears to be doing well at this time, but will continue with CIWA protocol. Continue to monitor closely. 4. Acute kidney injury/hypovolemic hyponatremia/hyperkalemia Patient volume depleted on presentation and hypotensive. Unclear how long patient was hypotensive. Patient may have an element of ATN secondary to this hypotension, exacerbated by baseline DANYELLE inhibitor. Marginal urine output at this time. Patient has had hyperkalemia and was given Kayexalate, but no bowel movement. Patient will be given MiraLAX. Nephrology has been consulted. Unclear if patient would benefit from a bicarbonate drip as his bicarb is still 22. 5. Chronic diastolic congestive heart failure/morbid obesity/depression/ recent hospitalization Complicates care, management, recovery and prognosis. Does not appear the patient has recurrent cellulitis of lower extremities. Hold baseline blood pressure medications. Patient will need crisis evaluation. Patient does report that he would like to remain a full code at this time. Code Visit Inpatient E&M: [id number] [facility] Hosp L3
[2019-04-12] MEDS: Thiamine Hydrochloride 100 MG Tablet PO ×2 (08:13→18:18)
[2019-04-12] MEDS: Folic Acid 1 MG Tablet PO (08:13)
[2019-04-12] MEDS: Acetaminophen 325 MG Tablet 650 MG PO ×2 (09:54→20:10)
--- NOTE | 2019-04-12 11:43 | PCM.CONS.R ---
Problem List (1) DONNY (acute kidney injury) Status: Acute Consultation - Renal 04/12/19 PCP/ Referring MD: Requesting physician: Dr Etienne Primary care physician: No Primary Care Phys Reason for Consultation:: DONNY Hyperkalemia - History of Present Illness History of Present Illness: The patient is a 53 year old M admitted to the hospital yesterday with complaints of generalized weakness, hypotension. On admission he was found to be severely hypotensive and bradycardic. Nephrology consulted for acute renal failure and hyperkalemia. He has no primary care physician and apparently was recently admitted here with hypertensive urgency. At that time he was started on carvedilol and DANYELLE inhibitor. Apparently he may have overdosed on these medications at home as well. In ER he received glucagon which improved the blood pressure somewhat. Sustain acute renal failure on admission with associated hyperkalemia of 6.6. He did receive fluids and aggressive supportive therapy. Creatinine continues to go up. Currently alert awake and denies any complaints except for generalized weakness. - Allergies Allergies: Allergies No Known Allergies Allergy (Verified 04/11/19 11:12) - Current Medications Current Medications: Current Medications Acetaminophen (Tylenol) 650 mg PO Q6H PRN PRN PRN Reason: Mild Pain (1-3)/Temp > 100.7 F Last Admin: 04/12/19 09:54 Dose: 650 mg Albuterol Sulfate (Ventolin Aerosols) 2.5 mg INHALATION Q2H PRN PRN PRN Reason: SOB/Wheezing Chlordiazepoxide (Librium) 25 mg PO TID PRN PRN PRN Reason: AGITATION Folic Acid (Folic Acid) 1 mg PO DAILY@0800 [facility] Stop: 04/14/19 08:01 Last Admin: 04/12/19 08:13 Dose: 1 mg Heparin Sodium (Porcine) (Heparin Na) 5,000 unit SC Q8 [facility] Last Admin: 04/12/19 05:08 Dose: 5,000 unit Dopamine HCl/Dextrose () 800 mg in 250 mls @ 12.338 mls/hr CONT INF .[id number] [facility] Last Admin: 04/11/19 20:02 Dose: Not Given Sodium Chloride () 250 mls @ 15 mls/hr IV .[id number] PRN PRN Reason: SALINE FLUSH Sodium Chloride () 1,000 mls @ 125 mls/hr IV .Q8H [facility] Last Admin: 04/12/19 06:39 Dose: 125 mls/hr Lorazepam (Ativan) 2 mg PO Q2H PRN PRN; Protocol PRN Reason: CIWA score > 8 but <15 Lorazepam (Ativan) 2 mg PO UD PRN; Protocol PRN Reason: CIWA score >/=15. Lorazepam (Ativan) 2 mg IV Q2H PRN PRN; Protocol PRN Reason: CIWA score > 8 but <15 Lorazepam (Ativan) 2 mg IV UD PRN; Protocol PRN Reason: CIWA score >/=15. Magnesium Hydroxide (Milk Of Magnesia) 30 ml PO DAILY PRN PRN PRN Reason: Constipation Last Admin: 04/11/19 16:34 Dose: 30 ml Ondansetron HCl (Zofran) 4 mg IV Q8H PRN PRN PRN Reason: NAUSEA/VOMITING Last Admin: 04/11/19 16:34 Dose: 4 mg Phenol/Menthol (Chloraseptic (Bkc)) 3 spray MM Q2H PRN PRN PRN Reason: SORE THROAT Psyllium Hydrophilic Mucilloid (Metamucil) 1 packet PO DAILY PRN PRN PRN Reason: Constipation Sodium Chloride () 5 - 15 ml IV UD PRN PRN Reason: SALINE FLUSH Last Admin: 04/11/19 21:48 Dose: 10 ml Thiamine HCl (Vitamin B1) 100 mg PO BIDCM [facility] Stop: 04/14/19 08:01 Last Admin: 04/12/19 08:13 Dose: 100 mg - Past Medical History Past Medical History (Chronic Problems): Chronic Problems Hypertension (Chronic) Alcohol abuse (Chronic) - Past Surgical History Surgical History: no surgical history - Social History Smoking Status: Former smoker Alcohol: None Drugs: None - Family History Maternal History Items: Heart Disease Paternal History Items: Heart Disease Review of Systems Constitutional: Denies: Chills, Fever, Weight Change HEENT: Denies: Head Aches, Sinus Congestion, Sinus Drainage Cardiovascular: Denies: Chest Pain, Palpitations Respiratory: Denies: Cough, Shortness of breath at rest, Sputum production Gastrointestinal: Denies: Abdominal Pain, Nausea, Vomiting Genitourinary: Denies: Dysuria Musculoskeletal: Denies: Joint Pain, Joint Tenderness Skin: Denies: Rash, Wounds Neurological: Denies: Numbness, Tingling, Focal weakness Psychiatric: Denies: Anxiety, Depression, Homicidal Ideations, Suicidal Ideations Hematologic/ Lymphatic: Denies: Easy Bruising, Easy Bleeding Patient Problems: Active and Suspected Problems Shock (Acute) Beta jey toxicity (Acute) Overdose of beta-adrenergic antagonist drug (Acute) DONNY (acute kidney injury) (Acute) - Physical Exam General: Alert, Oriented x3, Cooperative HEENT: Atraumatic, PERRLA, EOMI, Normocephalic Neck: Supple, No JVD, Negative Carotid Bruits Lungs: Clear to auscultation, Normal air movement Cardiovascular: Regular rate, No murmurs Abdomen: Bowel Sounds Present, Soft, Non Tender Extremities: No edema, Capillary Refill Less than 3 Seconds Skin: No rashes, No breakdown Musculoskeletal: No Tenderness to Palpation of Joints or Extremities Neurological: Cranial nerves II-XII grossly intact Psych/Mental Status: Normal Affect, Appropriate Vital Signs Temp Pulse Resp BP Pulse Ox 98.0 F 58 L 16 99/60 95 04/12/19 08:00 04/12/19 11:00 04/12/19 11:00 04/12/19 11:00 04/12/19 11:00 Oxygen Flow Rate (L/min) 2 Oxygen Delivery Method Room Air Weight: 129.3 kg Body Mass Index (BMI) 45.8 Intake and Output for Last 24 Hours 04/10/19 04/11/19 04/12/19 23:59 23:59 23:59 Intake Total 4441 / 4441 848 / 848 Output Total 50 / 50 100 / 100 Balance 4391 / 4391 748 / 748 Laboratory Tests Past 24 Hrs 04/11/19 04/11/19 04/11/19 11:30 11:30 11:30 WBC 11.3 H RBC 4.48 L Hgb 13.8 Hct 39.9 L MCV 89.1 MCH 30.8 MCHC 34.6 RDW 13.9 RDW Differential 45.3 H Plt Count 193 MPV 9.0 Immature Gran % (Auto) 0.400 Neut % (Auto) 75.7 H Lymph % (Auto) 16.1 L [place] % (Auto) 5.9 Eos % (Auto) 1.4 Baso % (Auto) 0.5 Absolute Neuts (auto) 8.5 H Absolute Lymphs (auto) 1.82 Total Counted Not Reportable PT 14.2 INR 1.1 APTT 30.9 Sodium 132 L Potassium 5.6 H Chloride 98 Carbon Dioxide 18.0 L Anion Gap 16 H BUN 14 Creatinine 2.25 H Estim Creat Clear Calc 33.87 Est GFR (MDRD) Af Amer 39 L Est GFR (MDRD) Non-Af 32 L BUN/Creatinine Ratio 6.2 L Glucose 142 H Lactic Acid Calcium 8.0 L Total Bilirubin 1.10 H AST 43 H ALT 54 Alkaline Phosphatase 108 Troponin I < 0.015 Total Protein 7.4 Albumin 3.3 Globulin 4.1 Albumin/Globulin Ratio 0.8 L Urine Color Urine Clarity Urine pH Ur Specific [place] Urine Protein Urine Glucose (UA) Urine Ketones Urine Occult Blood Urine Nitrite Urine Bilirubin Urine Urobilinogen Ur Leukocyte Esterase Urine RBC Urine WBC Ur Squamous Epith Cells Amorphous Sediment Urine Bacteria Urine Mucus Ethyl Alcohol 04/11/19 04/11/19 04/11/19 11:30 13:40 14:05 WBC RBC Hgb Hct MCV MCH MCHC RDW RDW Differential Plt Count MPV Immature Gran % (Auto) Neut % (Auto) Lymph % (Auto) [place] % (Auto) Eos % (Auto) Baso % (Auto) Absolute Neuts (auto) Absolute Lymphs (auto) Total Counted PT INR APTT Sodium Potassium Chloride Carbon Dioxide Anion Gap BUN Creatinine Estim Creat Clear Calc Est GFR (MDRD) Af Amer Est GFR (MDRD) Non-Af BUN/Creatinine Ratio Glucose Lactic Acid 2.6 H Calcium Total Bilirubin AST ALT Alkaline Phosphatase Troponin I Total Protein Albumin Globulin Albumin/Globulin Ratio Urine Color Yellow Urine Clarity Clear Urine pH 5.0 Ur Specific [place] 1.010 Urine Protein 30 H Urine Glucose (UA) Normal Urine Ketones Negative Urine Occult Blood Negative Urine Nitrite Negative Urine Bilirubin Negative Urine Urobilinogen Normal Ur Leukocyte Esterase Negative Urine RBC 0 SEEN Urine WBC 0 SEEN Ur Squamous Epith Cells 0 SEEN Amorphous Sediment 1+ Urine Bacteria 0 SEEN Urine Mucus 0 SEEN Ethyl Alcohol 79.0 04/11/19 04/11/19 04/11/19 14:05 14:05 16:30 WBC RBC Hgb Hct MCV MCH MCHC RDW RDW Differential Plt Count MPV Immature Gran % (Auto) Neut % (Auto) Lymph % (Auto) [place] % (Auto) Eos % (Auto) Baso % (Auto) Absolute Neuts (auto) Absolute Lymphs (auto) Total Counted PT INR APTT Sodium 129 L Potassium 5.3 H Chloride 99 Carbon Dioxide 20.0 L Anion Gap 10 BUN 17 Creatinine 2.55 H Estim Creat Clear Calc 29.88 Est GFR (MDRD) Af Amer 34 L Est GFR (MDRD) Non-Af 28 L BUN/Creatinine Ratio 6.7 L Glucose 167 H Lactic Acid 2.0 Calcium 7.5 L Total Bilirubin AST ALT Alkaline Phosphatase Troponin I < 0.015 Total Protein Albumin Globulin Albumin/Globulin Ratio Urine Color Urine Clarity Urine pH Ur Specific [place] Urine Protein Urine Glucose (UA) Urine Ketones Urine Occult Blood Urine Nitrite Urine Bilirubin Urine Urobilinogen Ur Leukocyte Esterase Urine RBC Urine WBC Ur Squamous Epith Cells Amorphous Sediment Urine Bacteria Urine Mucus Ethyl Alcohol 04/11/19 04/11/19 04/11/19 16:30 20:15 23:57 WBC RBC Hgb Hct MCV MCH MCHC RDW RDW Differential Plt Count MPV Immature Gran % (Auto) Neut % (Auto) Lymph % (Auto) [place] % (Auto) Eos % (Auto) Baso % (Auto) Absolute Neuts (auto) Absolute Lymphs (auto) Total Counted PT INR APTT Sodium 131 L 128 L Potassium 5.9 H 6.6 H* Chloride 99 99 Carbon Dioxide 21.0 21.0 Anion Gap 11 8 BUN 21 H 24 H Creatinine 2.87 H 3.13 H Estim Creat Clear Calc 26.55 24.35 Est GFR (MDRD) Af Amer 30 L 27 L Est GFR (MDRD) Non-Af 25 L 22 L BUN/Creatinine Ratio 7.3 L 7.7 L Glucose 125 H 123 H Lactic Acid Calcium 7.5 L 7.4 L Total Bilirubin AST ALT Alkaline Phosphatase Troponin I < 0.015 Total Protein Albumin Globulin Albumin/Globulin Ratio Urine Color Urine Clarity Urine pH Ur Specific [place] Urine Protein Urine Glucose (UA) Urine Ketones Urine Occult Blood Urine Nitrite Urine Bilirubin Urine Urobilinogen Ur Leukocyte Esterase Urine RBC Urine WBC Ur Squamous Epith Cells Amorphous Sediment Urine Bacteria Urine Mucus Ethyl Alcohol 04/12/19 04/12/19 03:40 03:40 WBC 14.0 H RBC 4.24 L Hgb 12.9 L Hct 37.9 L MCV 89.4 MCH 30.4 MCHC 34.0 RDW 13.8 RDW Differential 43.7 Plt Count 186 MPV 9.1 Immature Gran % (Auto) 0.300 Neut % (Auto) 77.5 H Lymph % (Auto) 12.5 L [place] % (Auto) 9.1 Eos % (Auto) 0.4 Baso % (Auto) 0.2 Absolute Neuts (auto) 10.9 H Absolute Lymphs (auto) 1.75 Total Counted Not Reportable PT INR APTT Sodium 133 L Potassium 6.0 H* Chloride 100 Carbon Dioxide 22.0 Anion Gap 11 BUN 28 H Creatinine 3.32 H Estim Creat Clear Calc 22.95 Est GFR (MDRD) Af Amer 25 L Est GFR (MDRD) Non-Af 21 L BUN/Creatinine Ratio 8.4 L Glucose 110 H Lactic Acid Calcium 7.2 L Total Bilirubin 1.00 AST 48 H ALT 64 H Alkaline Phosphatase 92 Troponin I Total Protein 6.5 Albumin 2.9 L Globulin 3.6 Albumin/Globulin Ratio 0.8 L Urine Color Urine Clarity Urine pH Ur Specific [place] Urine Protein Urine Glucose (UA) Urine Ketones Urine Occult Blood Urine Nitrite Urine Bilirubin Urine Urobilinogen Ur Leukocyte Esterase Urine RBC Urine WBC Ur Squamous Epith Cells Amorphous Sediment Urine Bacteria Urine Mucus Ethyl Alcohol Assessment/Plan All Active Problems Shortness of breath (Acute) Venous stasis dermatitis (Acute) Shock (Acute) Beta jey toxicity (Acute) Overdose of beta-adrenergic antagonist drug (Acute) DONNY (acute kidney injury) (Acute) Elevated blood pressure (Acute) Hyponatremia (Acute) Chest pain (Acute) Acute renal failure. Normal baseline creatinine. CT of the abdomen does not show any hydronephrosis. Blood pressure is better now around 110 systolic. No breathing difficulties. Potassium was 6.6 now better at 6.0. Urine output has picked up, he has made about 350 cc of urine since 7 AM today. Since urine output is better, hold off on dialysis for now. Continue supportive therapy. Repeat BMP this afternoon Hyperkalemia. Due to acute renal failure, DANYELLE inhibitor. Repeat potassium is better at 6.0.
--- NOTE | 2019-04-12 11:48 | CON.PCM_ITS ---
Problem List (1) DONNY (acute kidney injury) Status: Acute Consultation - Renal 04/12/19 PCP/ Referring MD: Requesting physician: Dr Etienne Primary care physician: No Primary Care Phys Reason for Consultation:: DONNY Hyperkalemia - History of Present Illness History of Present Illness: The patient is a 53 year old M admitted to the hospital yesterday with complaints of generalized weakness, hypotension. On admission he was found to be severely hypotensive and bradycardic. Nephrology consulted for acute renal failure and hyperkalemia. He has no primary care physician and apparently was recently admitted here with hypertensive urgency. At that time he was started on carvedilol and DANYELLE inhibitor. Apparently he may have overdosed on these medications at home as well. In ER he received glucagon which improved the blood pressure somewhat. Sustain acute renal failure on admission with associated hyperkalemia of 6.6. He did receive fluids and aggressive supportive therapy. Creatinine continues to go up. Currently alert awake and denies any complaints except for generalized weakness. - Allergies Allergies: Allergies No Known Allergies Allergy (Verified 04/11/19 11:12) - Current Medications Current Medications: Current Medications Acetaminophen (Tylenol) 650 mg PO Q6H PRN PRN PRN Reason: Mild Pain (1-3)/Temp > 100.7 F Last Admin: 04/12/19 09:54 Dose: 650 mg Albuterol Sulfate (Ventolin Aerosols) 2.5 mg INHALATION Q2H PRN PRN PRN Reason: SOB/Wheezing Chlordiazepoxide (Librium) 25 mg PO TID PRN PRN PRN Reason: AGITATION Folic Acid (Folic Acid) 1 mg PO DAILY@0800 [facility] Stop: 04/14/19 08:01 Last Admin: 04/12/19 08:13 Dose: 1 mg Heparin Sodium (Porcine) (Heparin Na) 5,000 unit SC Q8 [facility] Last Admin: 04/12/19 05:08 Dose: 5,000 unit Dopamine HCl/Dextrose () 800 mg in 250 mls @ 12.338 mls/hr CONT INF .[id number] [facility] Last Admin: 04/11/19 20:02 Dose: Not Given Sodium Chloride () 250 mls @ 15 mls/hr IV .[id number] PRN PRN Reason: SALINE FLUSH Sodium Chloride () 1,000 mls @ 125 mls/hr IV .Q8H [facility] Last Admin: 04/12/19 06:39 Dose: 125 mls/hr Lorazepam (Ativan) 2 mg PO Q2H PRN PRN; Protocol PRN Reason: CIWA score > 8 but <15 Lorazepam (Ativan) 2 mg PO UD PRN; Protocol PRN Reason: CIWA score >/=15. Lorazepam (Ativan) 2 mg IV Q2H PRN PRN; Protocol PRN Reason: CIWA score > 8 but <15 Lorazepam (Ativan) 2 mg IV UD PRN; Protocol PRN Reason: CIWA score >/=15. Magnesium Hydroxide (Milk Of Magnesia) 30 ml PO DAILY PRN PRN PRN Reason: Constipation Last Admin: 04/11/19 16:34 Dose: 30 ml Ondansetron HCl (Zofran) 4 mg IV Q8H PRN PRN PRN Reason: NAUSEA/VOMITING Last Admin: 04/11/19 16:34 Dose: 4 mg Phenol/Menthol (Chloraseptic (Bkc)) 3 spray MM Q2H PRN PRN PRN Reason: SORE THROAT Psyllium Hydrophilic Mucilloid (Metamucil) 1 packet PO DAILY PRN PRN PRN Reason: Constipation Sodium Chloride () 5 - 15 ml IV UD PRN PRN Reason: SALINE FLUSH Last Admin: 04/11/19 21:48 Dose: 10 ml Thiamine HCl (Vitamin B1) 100 mg PO BIDCM [facility] Stop: 04/14/19 08:01 Last Admin: 04/12/19 08:13 Dose: 100 mg - Past Medical History Past Medical History (Chronic Problems): Chronic Problems Hypertension (Chronic) Alcohol abuse (Chronic) - Past Surgical History Surgical History: no surgical history - Social History Smoking Status: Former smoker Alcohol: None Drugs: None - Family History Maternal History Items: Heart Disease Paternal History Items: Heart Disease Review of Systems Constitutional: Denies: Chills, Fever, Weight Change HEENT: Denies: Head Aches, Sinus Congestion, Sinus Drainage Cardiovascular: Denies: Chest Pain, Palpitations Respiratory: Denies: Cough, Shortness of breath at rest, Sputum production Gastrointestinal: Denies: Abdominal Pain, Nausea, Vomiting Genitourinary: Denies: Dysuria Musculoskeletal: Denies: Joint Pain, Joint Tenderness Skin: Denies: Rash, Wounds Neurological: Denies: Numbness, Tingling, Focal weakness Psychiatric: Denies: Anxiety, Depression, Homicidal Ideations, Suicidal Ideations Hematologic/ Lymphatic: Denies: Easy Bruising, Easy Bleeding Patient Problems: Active and Suspected Problems Shock (Acute) Beta jey toxicity (Acute) Overdose of beta-adrenergic antagonist drug (Acute) DONNY (acute kidney injury) (Acute) - Physical Exam General: Alert, Oriented x3, Cooperative HEENT: Atraumatic, PERRLA, EOMI, Normocephalic Neck: Supple, No JVD, Negative Carotid Bruits Lungs: Clear to auscultation, Normal air movement Cardiovascular: Regular rate, No murmurs Abdomen: Bowel Sounds Present, Soft, Non Tender Extremities: No edema, Capillary Refill Less than 3 Seconds Skin: No rashes, No breakdown Musculoskeletal: No Tenderness to Palpation of Joints or Extremities Neurological: Cranial nerves II-XII grossly intact Psych/Mental Status: Normal Affect, Appropriate Vital Signs Temp Pulse Resp BP Pulse Ox 98.0 F 58 L 16 99/60 95 04/12/19 08:00 04/12/19 11:00 04/12/19 11:00 04/12/19 11:00 04/12/19 11:00 Oxygen Flow Rate (L/min) 2 Oxygen Delivery Method Room Air Weight: 129.3 kg Body Mass Index (BMI) 45.8 Intake and Output for Last 24 Hours 04/10/19 04/11/19 04/12/19 23:59 23:59 23:59 Intake Total 4441 / 4441 848 / 848 Output Total 50 / 50 100 / 100 Balance 4391 / 4391 748 / 748 Laboratory Tests Past 24 Hrs 04/11/19 04/11/19 04/11/19 11:30 11:30 11:30 WBC 11.3 H RBC 4.48 L Hgb 13.8 Hct 39.9 L MCV 89.1 MCH 30.8 MCHC 34.6 RDW 13.9 RDW Differential 45.3 H Plt Count 193 MPV 9.0 Immature Gran % (Auto) 0.400 Neut % (Auto) 75.7 H Lymph % (Auto) 16.1 L [place] % (Auto) 5.9 Eos % (Auto) 1.4 Baso % (Auto) 0.5 Absolute Neuts (auto) 8.5 H Absolute Lymphs (auto) 1.82 Total Counted Not Reportable PT 14.2 INR 1.1 APTT 30.9 Sodium 132 L Potassium 5.6 H Chloride 98 Carbon Dioxide 18.0 L Anion Gap 16 H BUN 14 Creatinine 2.25 H Estim Creat Clear Calc 33.87 Est GFR (MDRD) Af Amer 39 L Est GFR (MDRD) Non-Af 32 L BUN/Creatinine Ratio 6.2 L Glucose 142 H Lactic Acid Calcium 8.0 L Total Bilirubin 1.10 H AST 43 H ALT 54 Alkaline Phosphatase 108 Troponin I < 0.015 Total Protein 7.4 Albumin 3.3 Globulin 4.1 Albumin/Globulin Ratio 0.8 L Urine Color Urine Clarity Urine pH Ur Specific [place] Urine Protein Urine Glucose (UA) Urine Ketones Urine Occult Blood Urine Nitrite Urine Bilirubin Urine Urobilinogen Ur Leukocyte Esterase Urine RBC Urine WBC Ur Squamous Epith Cells Amorphous Sediment Urine Bacteria Urine Mucus Ethyl Alcohol 04/11/19 04/11/19 04/11/19 11:30 13:40 14:05 WBC RBC Hgb Hct MCV MCH MCHC RDW RDW Differential Plt Count MPV Immature Gran % (Auto) Neut % (Auto) Lymph % (Auto) [place] % (Auto) Eos % (Auto) Baso % (Auto) Absolute Neuts (auto) Absolute Lymphs (auto) Total Counted PT INR APTT Sodium Potassium Chloride Carbon Dioxide Anion Gap BUN Creatinine Estim Creat Clear Calc Est GFR (MDRD) Af Amer Est GFR (MDRD) Non-Af BUN/Creatinine Ratio Glucose Lactic Acid 2.6 H Calcium Total Bilirubin AST ALT Alkaline Phosphatase Troponin I Total Protein Albumin Globulin Albumin/Globulin Ratio Urine Color Yellow Urine Clarity Clear Urine pH 5.0 Ur Specific [place] 1.010 Urine Protein 30 H Urine Glucose (UA) Normal Urine Ketones Negative Urine Occult Blood Negative Urine Nitrite Negative Urine Bilirubin Negative Urine Urobilinogen Normal Ur Leukocyte Esterase Negative Urine RBC 0 SEEN Urine WBC 0 SEEN Ur Squamous Epith Cells 0 SEEN Amorphous Sediment 1+ Urine Bacteria 0 SEEN Urine Mucus 0 SEEN Ethyl Alcohol 79.0 04/11/19 04/11/19 04/11/19 14:05 14:05 16:30 WBC RBC Hgb Hct MCV MCH MCHC RDW RDW Differential Plt Count MPV Immature Gran % (Auto) Neut % (Auto) Lymph % (Auto) [place] % (Auto) Eos % (Auto) Baso % (Auto) Absolute Neuts (auto) Absolute Lymphs (auto) Total Counted PT INR APTT Sodium 129 L Potassium 5.3 H Chloride 99 Carbon Dioxide 20.0 L Anion Gap 10 BUN 17 Creatinine 2.55 H Estim Creat Clear Calc 29.88 Est GFR (MDRD) Af Amer 34 L Est GFR (MDRD) Non-Af 28 L BUN/Creatinine Ratio 6.7 L Glucose 167 H Lactic Acid 2.0 Calcium 7.5 L Total Bilirubin AST ALT Alkaline Phosphatase Troponin I < 0.015 Total Protein Albumin Globulin Albumin/Globulin Ratio Urine Color Urine Clarity Urine pH Ur Specific [place] Urine Protein Urine Glucose (UA) Urine Ketones Urine Occult Blood Urine Nitrite Urine Bilirubin Urine Urobilinogen Ur Leukocyte Esterase Urine RBC Urine WBC Ur Squamous Epith Cells Amorphous Sediment Urine Bacteria Urine Mucus Ethyl Alcohol 04/11/19 04/11/19 04/11/19 16:30 20:15 23:57 WBC RBC Hgb Hct MCV MCH MCHC RDW RDW Differential Plt Count MPV Immature Gran % (Auto) Neut % (Auto) Lymph % (Auto) [place] % (Auto) Eos % (Auto) Baso % (Auto) Absolute Neuts (auto) Absolute Lymphs (auto) Total Counted PT INR APTT Sodium 131 L 128 L Potassium 5.9 H 6.6 H* Chloride 99 99 Carbon Dioxide 21.0 21.0 Anion Gap 11 8 BUN 21 H 24 H Creatinine 2.87 H 3.13 H Estim Creat Clear Calc 26.55 24.35 Est GFR (MDRD) Af Amer 30 L 27 L Est GFR (MDRD) Non-Af 25 L 22 L BUN/Creatinine Ratio 7.3 L 7.7 L Glucose 125 H 123 H Lactic Acid Calcium 7.5 L 7.4 L Total Bilirubin AST ALT Alkaline Phosphatase Troponin I < 0.015 Total Protein Albumin Globulin Albumin/Globulin Ratio Urine Color Urine Clarity Urine pH Ur Specific [place] Urine Protein Urine Glucose (UA) Urine Ketones Urine Occult Blood Urine Nitrite Urine Bilirubin Urine Urobilinogen Ur Leukocyte Esterase Urine RBC Urine WBC Ur Squamous Epith Cells Amorphous Sediment Urine Bacteria Urine Mucus Ethyl Alcohol 04/12/19 04/12/19 03:40 03:40 WBC 14.0 H RBC 4.24 L Hgb 12.9 L Hct 37.9 L MCV 89.4 MCH 30.4 MCHC 34.0 RDW 13.8 RDW Differential 43.7 Plt Count 186 MPV 9.1 Immature Gran % (Auto) 0.300 Neut % (Auto) 77.5 H Lymph % (Auto) 12.5 L [place] % (Auto) 9.1 Eos % (Auto) 0.4 Baso % (Auto) 0.2 Absolute Neuts (auto) 10.9 H Absolute Lymphs (auto) 1.75 Total Counted Not Reportable PT INR APTT Sodium 133 L Potassium 6.0 H* Chloride 100 Carbon Dioxide 22.0 Anion Gap 11 BUN 28 H Creatinine 3.32 H Estim Creat Clear Calc 22.95 Est GFR (MDRD) Af Amer 25 L Est GFR (MDRD) Non-Af 21 L BUN/Creatinine Ratio 8.4 L Glucose 110 H Lactic Acid Calcium 7.2 L Total Bilirubin 1.00 AST 48 H ALT 64 H Alkaline Phosphatase 92 Troponin I Total Protein 6.5 Albumin 2.9 L Globulin 3.6 Albumin/Globulin Ratio 0.8 L Urine Color Urine Clarity Urine pH Ur Specific [place] Urine Protein Urine Glucose (UA) Urine Ketones Urine Occult Blood Urine Nitrite Urine Bilirubin Urine Urobilinogen Ur Leukocyte Esterase Urine RBC Urine WBC Ur Squamous Epith Cells Amorphous Sediment Urine Bacteria Urine Mucus Ethyl Alcohol Assessment/Plan All Active Problems Shortness of breath (Acute) Venous stasis dermatitis (Acute) Shock (Acute) Beta jey toxicity (Acute) Overdose of beta-adrenergic antagonist drug (Acute) DONNY (acute kidney injury) (Acute) Elevated blood pressure (Acute) Hyponatremia (Acute) Chest pain (Acute) Acute renal failure. Normal baseline creatinine. CT of the abdomen does not show any hydronephrosis. Blood pressure is better now around 110 systolic. No breathing difficulties. Potassium was 6.6 now better at 6.0. Urine output has picked up, he has made about 350 cc of urine since 7 AM today. Since urine output is better, hold off on dialysis for now. Continue supportive therapy. R epeat BMP this afternoon Hyperkalemia. Due to acute renal failure, DANYELLE inhibitor. Repeat potassium is better at 6.0.
[2019-04-12 14:41] LABS: Anion Gap 9 (5-15); BUN 33 mg/dL (7-18); BUN/Creat Ratio 8.5 RATIO (10-20); Calcium,Total 7.2 mg/dL (8.5-10.1); Chloride 101 mmol/L (98-107); Creatinine, Serum 3.86 mg/dL (0.70-1.30); EST Glomerular Filtration Rate 17 mL/min (>60); Est Glom Filt Rate - Afr Amer 21 mL/min (>60); Estimated Creatinine Clearance 19.74 ml/min; Glucose 113 mg/dL (74-106); Potassium 4.3 mmol/L (3.5-5.1); Sodium Level 134 mmol/L (136-145)
--- NOTE | 2019-04-12 15:06 | PCM.PN.HOSP ---
Patient Problems: Active and Suspected Problems Shock (Acute) Beta jey toxicity (Acute) Overdose of beta-adrenergic antagonist drug (Acute) DONNY (acute kidney injury) (Acute) Subjective: No fever or chills. Heart rate is in 50s. K6.0. Worsening of kidney function from 3.13-3.86. Division Head is consulted. Right upper quadrant ultrasound and renal ultrasound ordered. Vitals/I&O's: Vital Signs Temp Pulse Resp BP Pulse Ox 97.7 F L 56 L 15 99/54 L 94 04/12/19 12:00 04/12/19 14:00 04/12/19 14:00 04/12/19 14:00 04/12/19 14:00 Oxygen Flow Rate (L/min) 2 Oxygen Delivery Method Room Air Weight: 285 lb 0.923 oz Body Mass Index (BMI) 45.8 Intake and Output for Last 24 Hours 04/10/19 04/11/19 04/12/19 23:59 23:59 23:59 Intake Total 4441 / 4441 1709 / 1709 Output Total 50 / 50 350 / 350 Balance 4391 / 4391 1359 / 1359 General: Alert, Oriented x3, Cooperative HEENT: Atraumatic, PERRLA, EOMI, Normocephalic Neck: Supple, No JVD, Negative Carotid Bruits Lungs: Clear to auscultation, No rhonchi, No wheeze, No rales, Diminished Cardiovascular: Regular rate, Regular Rhythm, Normal S1, Normal S2, Murmur - Colic murmur present. Abdomen: Bowel Sounds Present, Soft, Non Tender Extremities: Capillary Refill Less than 3 Seconds, Edema Skin: No rashes, No breakdown Musculoskeletal: No Tenderness to Palpation of Joints or Extremities, Arthritic Changes Neurological: Cranial nerves II-XII grossly intact, Neuro grossly intact Psych/Mental Status: Normal Affect, Appropriate Laboratory Results 04/11/19 16:30: Sodium 129 L, Potassium 5.3 H, Chloride 99, Carbon Dioxide 20.0 L, Anion Gap 10, BUN 17, Creatinine 2.55 H, Estim Creat Clear Calc 29.88, Est GFR (MDRD) Af Amer 34 L, Est GFR (MDRD) Non-Af 28 L, BUN/Creatinine Ratio 6.7 L, Glucose 167 H, Calcium 7.5 L 04/11/19 16:30: Troponin I < 0.015 04/11/19 20:15: Sodium 131 L, Potassium 5.9 H, Chloride 99, Carbon Dioxide 21.0, Anion Gap 11, BUN 21 H, Creatinine 2.87 H, Estim Creat Clear Calc 26.55, Est GFR (MDRD) Af Amer 30 L, Est GFR (MDRD) Non-Af 25 L, BUN/Creatinine Ratio 7.3 L, Glucose 125 H, Calcium 7.5 L 04/11/19 23:57: Sodium 128 L, Potassium 6.6 H*, Chloride 99, Carbon Dioxide 21.0, Anion Gap 8, BUN 24 H, Creatinine 3.13 H, Estim Creat Clear Calc 24.35, Est GFR (MDRD) Af Amer 27 L, Est GFR (MDRD) Non-Af 22 L, BUN/Creatinine Ratio 7.7 L, Glucose 123 H, Calcium 7.4 L 04/12/19 03:40: Sodium 133 L, Potassium 6.0 H*, Chloride 100, Carbon Dioxide 22.0, Anion Gap 11, BUN 28 H, Creatinine 3.32 H, Estim Creat Clear Calc 22.95, Est GFR (MDRD) Af Amer 25 L, Est GFR (MDRD) Non-Af 21 L, BUN/Creatinine Ratio 8.4 L, Glucose 110 H, Calcium 7.2 L, Total Bilirubin 1.00, AST 48 H, ALT 64 H, Alkaline Phosphatase 92, Total Protein 6.5, Albumin 2.9 L, Globulin 3.6, Albumin/Globulin Ratio 0.8 L 04/12/19 03:40: WBC 14.0 H, RBC 4.24 L, Hgb 12.9 L, Hct 37.9 L, MCV 89.4, MCH 30.4, MCHC 34.0, RDW 13.8, RDW Differential 43.7, Plt Count 186, MPV 9.1, Immature Gran % (Auto) 0.300, Neut % (Auto) 77.5 H, Lymph % (Auto) 12.5 L, Gregg % (Auto) 9.1, Eos % (Auto) 0.4, Baso % (Auto) 0.2, Absolute Neuts (auto) 10.9 H, Absolute Lymphs (auto) 1.75, Total Counted Not Reportable 04/12/19 14:20: Sodium 134 L, Potassium 4.3, Chloride 101, Carbon Dioxide 24.0, Anion Gap 9, BUN 33 H, Creatinine 3.86 H, Estim Creat Clear Calc 19.74, Est GFR (MDRD) Af Amer 21 L, Est GFR (MDRD) Non-Af 17 L, BUN/Creatinine Ratio 8.5 L, Glucose 113 H, Calcium 7.2 L Current Medications Acetaminophen (Tylenol) 650 mg PO Q6H PRN PRN PRN Reason: Mild Pain (1-3)/Temp > 100.7 F Last Admin: 04/12/19 09:54 Dose: 650 mg Albuterol Sulfate (Ventolin Aerosols) 2.5 mg INHALATION Q2H PRN PRN PRN Reason: SOB/Wheezing Chlordiazepoxide (Librium) 25 mg PO TID PRN PRN PRN Reason: AGITATION Folic Acid (Folic Acid) 1 mg PO DAILY@0800 [facility] Stop: 04/14/19 08:01 Last Admin: 04/12/19 08:13 Dose: 1 mg Heparin Sodium (Porcine) (Heparin Na) 5,000 unit SC Q8 [facility] Last Admin: 04/12/19 14:23 Dose: 5,000 unit Dopamine HCl/Dextrose () 800 mg in 250 mls @ 12.338 mls/hr CONT INF .[id number] [facility] Last Admin: 04/11/19 20:02 Dose: Not Given Sodium Chloride () 250 mls @ 15 mls/hr IV .[id number] PRN PRN Reason: SALINE FLUSH Sodium Chloride () 1,000 mls @ 125 mls/hr IV .Q8H [facility] Last Admin: 04/12/19 14:25 Dose: 125 mls/hr Lorazepam (Ativan) 2 mg PO Q2H PRN PRN; Protocol PRN Reason: CIWA score > 8 but <15 Lorazepam (Ativan) 2 mg PO UD PRN; Protocol PRN Reason: CIWA score >/=15. Lorazepam (Ativan) 2 mg IV Q2H PRN PRN; Protocol PRN Reason: CIWA score > 8 but <15 Lorazepam (Ativan) 2 mg IV UD PRN; Protocol PRN Reason: CIWA score >/=15. Magnesium Hydroxide (Milk Of Magnesia) 30 ml PO DAILY PRN PRN PRN Reason: Constipation Last Admin: 04/11/19 16:34 Dose: 30 ml Ondansetron HCl (Zofran) 4 mg IV Q8H PRN PRN PRN Reason: NAUSEA/VOMITING Last Admin: 04/11/19 16:34 Dose: 4 mg Phenol/Menthol (Chloraseptic (Bkc)) 3 spray MM Q2H PRN PRN PRN Reason: SORE THROAT Psyllium Hydrophilic Mucilloid (Metamucil) 1 packet PO DAILY PRN PRN PRN Reason: Constipation Sodium Chloride () 5 - 15 ml IV UD PRN PRN Reason: SALINE FLUSH Last Admin: 04/11/19 21:48 Dose: 10 ml Thiamine HCl (Vitamin B1) 100 mg PO BIDCM [facility] Stop: 04/14/19 08:01 Last Admin: 04/12/19 08:13 Dose: 100 mg Medical Necessity - Tobacco Use Smoking Status: Former smoker Tobacco Use: Non-smoker Assessment/Plan All Active Problems Shortness of breath (Acute) Venous stasis dermatitis (Acute) Shock (Acute) Beta jey toxicity (Acute) Overdose of beta-adrenergic antagonist drug (Acute) DONNY (acute kidney injury) (Acute) Elevated blood pressure (Acute) Hyponatremia (Acute) Chest pain (Acute) This is 53 year old M with past medical history of morbid obesity, chronic venous dermatitis, chronic alcoholic use disorder was admitted with feeling sweaty with burning chest pain. Patient was bradycardic. History of drug overdose possible carvedilol and lisinopril, and admitted with acute kidney injury with hyperkalemia and hypotension in ICU 1. Hypotension, secondary to carvedilol and lisinopril overdose: Patient currently more awake and alert. He had glucagon in the ER. Currently hemodynamically stable. Discussed with the lockstitch waistline joiner. Blood pressure is better, systolic about 110. Will transfer to PCU. 2. Acute kidney injury, pre-renal or possible ATN: Patient urine output 350 mL. BUN/creatinine 17/2.5 233/3.86. Division Head is been consulted. Renal ultrasound 4.6 cm cortical cyst at the mid to lower pole of the right kidney, otherwise normal ultrasound of the kidneys. 3. Hyperkalemia secondary to Lisinopril overdose, no EKG changes: K was 6.6 on 04/11. Currently 4.3. Patient received Kayexalate. No significant EKG changes of hypokalemia 4. Elevated lactic acid likely secondary to #1,: Resolved. 5. Suicidal attempt: Mental health crisis team. 6. Hyponatremia, secondary to DONNY improving. 7. Chest pain, atypical likely secondary to shock. EKG shows no acute ST-T changes, troponins negative. 8. Elevated transaminases probably from nonalcoholic steatohepatitis: ALT and AST are elevated. Total bili normal alkaline phosphatase 92. DVT PPx- Heparin SC Laboratory Results 04/12/19 03:40: Sodium 133 L, Potassium 6.0 H*, Chloride 100, Carbon Dioxide 22.0, Anion Gap 11, BUN 28 H, Creatinine 3.32 H, Estim Creat Clear Calc 22.95, Est GFR (MDRD) Af Amer 25 L, Est GFR (MDRD) Non-Af 21 L, BUN/Creatinine Ratio 8.4 L, Glucose 110 H, Calcium 7.2 L, Total Bilirubin 1.00, AST 48 H, ALT 64 H, Alkaline Phosphatase 92, Total Protein 6.5, Albumin 2.9 L, Globulin 3.6, Albumin/Globulin Ratio 0.8 L 04/12/19 03:40: WBC 14.0 H, RBC 4.24 L, Hgb 12.9 L, Hct 37.9 L, MCV 89.4, MCH 30.4, MCHC 34.0, RDW 13.8, RDW Differential 43.7, Plt Count 186, MPV 9.1, Immature Gran % (Auto) 0.300, Neut % (Auto) 77.5 H, Lymph % (Auto) 12.5 L, Gregg % (Auto) 9.1, Eos % (Auto) 0.4, Baso % (Auto) 0.2, Absolute Neuts (auto) 10.9 H, Absolute Lymphs (auto) 1.75, Total Counted Not Reportable 04/12/19 14:20: Sodium 134 L, Potassium 4.3, Chloride 101, Carbon Dioxide 24.0, Anion Gap 9, BUN 33 H, Creatinine 3.86 H, Estim Creat Clear Calc 19.74, Est GFR (MDRD) Af Amer 21 L, Est GFR (MDRD) Non-Af 17 L, BUN/Creatinine Ratio 8.5 L, Glucose 113 H, Calcium 7.2 L Clinical Impression(s) from Imaging Studies Chest X-Ray 04/11/19 11:19 IMPRESSION: Mild cardiomegaly. Mild degree of vascular congestion. Abdomen CTA 04/11/19 12:34 IMPRESSION: Hepatomegaly and fatty infiltration of the liver. Minimal amount of free fluid along the inferior medial aspect of the liver. Small amount of pericholecystic fluid. Right renal cyst. Chest CTA 04/11/19 12:34 IMPRESSION: Linear atelectasis and/or scarring at the lung bases. Fatty infiltration of the liver. Gallbladder Ultrasound 04/11/19 13:41 IMPRESSION: Hepatomegaly. Fatty attrition of the liver. Thickened gallbladder wall. Small amount of pericholecystic fluid. Renal Ultrasound 04/12/19 05:55 IMPRESSION: 1. 4.6 cm cortical cyst at the mid to lower pole of the right kidney, otherwise normal ultrasound of the kidneys. 2. The urinary bladder is collapsed around a Chung catheter.. Code Visit Inpatient E&M: 28641 Subs Hosp L3
--- NOTE | 2019-04-12 15:17 | PN_ITS ---
Patient Problems: Active and Suspected Problems Shock (Acute) Beta jey toxicity (Acute) Overdose of beta-adrenergic antagonist drug (Acute) DONNY (acute kidney injury) (Acute) Subjective: No fever or chills. Heart rate is in 50s. K6.0. Worsening of kidney function from 3.13-3.86. Furnace Filler is consulted. Right upper quadrant ultrasound and renal ultrasound ordered. Vitals/I&O's: Vital Signs Temp Pulse Resp BP Pulse Ox 97.7 F L 56 L 15 99/54 L 94 04/12/19 12:00 04/12/19 14:00 04/12/19 14:00 04/12/19 14:00 04/12/19 14:00 Oxygen Flow Rate (L/min) 2 Oxygen Delivery Method Room Air Weight: 285 lb 0.923 oz Body Mass Index (BMI) 45.8 Intake and Output for Last 24 Hours 04/10/19 04/11/19 04/12/19 23:59 23:59 23:59 Intake Total 4441 / 4441 1709 / 1709 Output Total 50 / 50 350 / 350 Balance 4391 / 4391 1359 / 1359 General: Alert, Oriented x3, Cooperative HEENT: Atraumatic, PERRLA, EOMI, Normocephalic Neck: Supple, No JVD, Negative Carotid Bruits Lungs: Clear to auscultation, No rhonchi, No wheeze, No rales, Diminished Cardiovascular: Regular rate, Regular Rhythm, Normal S1, Normal S2, Murmur - Colic murmur present. Abdomen: Bowel Sounds Present, Soft, Non Tender Extremities: Capillary Refill Less than 3 Seconds, Edema Skin: No rashes, No breakdown Musculoskeletal: No Tenderness to Palpation of Joints or Extremities, Arthritic Changes Neurological: Cranial nerves II-XII grossly intact, Neuro grossly intact Psych/Mental Status: Normal Affect, Appropriate Laboratory Results 04/11/19 16:30: Sodium 129 L, Potassium 5.3 H, Chloride 99, Carbon Dioxide 20.0 L, Anion Gap 10, BUN 17, Creatinine 2.55 H, Estim Creat Clear Calc 29.88, Est GFR (MDRD) Af Amer 34 L, Est GFR (MDRD) Non-Af 28 L, BUN/Creatinine Ratio 6.7 L, Glucose 167 H, Calcium 7.5 L 04/11/19 16:30: Troponin I < 0.015 04/11/19 20:15: Sodium 131 L, Potassium 5.9 H, Chloride 99, Carbon Dioxide 21.0, Anion Gap 11, BUN 21 H, Creatinine 2.87 H, Estim Creat Clear Calc 26.55, Est GFR (MDRD) Af Amer 30 L, Est GFR (MDRD) Non-Af 25 L, BUN/Creatinine Ratio 7.3 L, Glucose 125 H, Calcium 7.5 L 04/11/19 23:57: Sodium 128 L, Potassium 6.6 H*, Chloride 99, Carbon Dioxide 21.0, Anion Gap 8, BUN 24 H, Creatinine 3.13 H, Estim Creat Clear Calc 24.35, Est GFR (MDRD) Af Amer 27 L, Est GFR (MDRD) Non-Af 22 L, BUN/Creatinine Ratio 7.7 L, Glucose 123 H, Calcium 7.4 L 04/12/19 03:40: Sodium 133 L, Potassium 6.0 H*, Chloride 100, Carbon Dioxide 22.0, Anion Gap 11, BUN 28 H, Creatinine 3.32 H, Estim Creat Clear Calc 22.95, Est GFR (MDRD) Af Amer 25 L, Est GFR (MDRD) Non-Af 21 L, BUN/Creatinine Ratio 8.4 L, Glucose 110 H, Calcium 7.2 L, Total Bilirubin 1.00, AST 48 H, ALT 64 H, Alkaline Phosphatase 92, Total Protein 6.5, Albumin 2.9 L, Globulin 3.6, Albumin/Globulin Ratio 0.8 L 04/12/19 03:40: WBC 14.0 H, RBC 4.24 L, Hgb 12.9 L, Hct 37.9 L, MCV 89.4, MCH 30.4, MCHC 34.0, RDW 13.8, RDW Differential 43.7, Plt Count 186, MPV 9.1, Immature Gran % (Auto) 0.300, Neut % (Auto) 77.5 H, Lymph % (Auto) 12.5 L, Hartley % (Auto) 9.1, Eos % (Auto) 0.4, Baso % (Auto) 0.2, Absolute Neuts (auto) 10.9 H, Absolute Lymphs (auto) 1.75, Total Counted Not Reportable 04/12/19 14:20: Sodium 134 L, Potassium 4.3, Chloride 101, Carbon Dioxide 24.0, Anion Gap 9, BUN 33 H, Creatinine 3.86 H, Estim Creat Clear Calc 19.74, Est GFR (MDRD) Af Amer 21 L, Est GFR (MDRD) Non-Af 17 L, BUN/Creatinine Ratio 8.5 L, Glucose 113 H, Calcium 7.2 L Current Medications Acetaminophen (Tylenol) 650 mg PO Q6H PRN PRN PRN Reason: Mild Pain (1-3)/Temp > 100.7 F Last Admin: 04/12/19 09:54 Dose: 650 mg Albuterol Sulfate (Ventolin Aerosols) 2.5 mg INHALATION Q2H PRN PRN PRN Reason: SOB/Wheezing Chlordiazepoxide (Librium) 25 mg PO TID PRN PRN PRN Reason: AGITATION Folic Acid (Folic Acid) 1 mg PO DAILY@0800 [facility] Stop: 04/14/19 08:01 Last Admin: 04/12/19 08:13 Dose: 1 mg Heparin Sodium (Porcine) (Heparin Na) 5,000 unit SC Q8 [facility] Last Admin: 04/12/19 14:23 Dose: 5,000 unit Dopamine HCl/Dextrose () 800 mg in 250 mls @ 12.338 mls/hr CONT INF .[id number] [facility] Last Admin: 04/11/19 20:02 Dose: Not Given Sodium Chloride () 250 mls @ 15 mls/hr IV .[id number] PRN PRN Reason: SALINE FLUSH Sodium Chloride () 1,000 mls @ 125 mls/hr IV .Q8H [facility] Last Admin: 04/12/19 14:25 Dose: 125 mls/hr Lorazepam (Ativan) 2 mg PO Q2H PRN PRN; Protocol PRN Reason: CIWA score > 8 but <15 Lorazepam (Ativan) 2 mg PO UD PRN; Protocol PRN Reason: CIWA score >/=15. Lorazepam (Ativan) 2 mg IV Q2H PRN PRN; Protocol PRN Reason: CIWA score > 8 but <15 Lorazepam (Ativan) 2 mg IV UD PRN; Protocol PRN Reason: CIWA score >/=15. Magnesium Hydroxide (Milk Of Magnesia) 30 ml PO DAILY PRN PRN PRN Reason: Constipation Last Admin: 04/11/19 16:34 Dose: 30 ml Ondansetron HCl (Zofran) 4 mg IV Q8H PRN PRN PRN Reason: NAUSEA/VOMITING Last Admin: 04/11/19 16:34 Dose: 4 mg Phenol/Menthol (Chloraseptic (Bkc)) 3 spray MM Q2H PRN PRN PRN Reason: SORE THROAT Psyllium Hydrophilic Mucilloid (Metamucil) 1 packet PO DAILY PRN PRN PRN Reason: Constipation Sodium Chloride () 5 - 15 ml IV UD PRN PRN Reason: SALINE FLUSH Last Admin: 04/11/19 21:48 Dose: 10 ml Thiamine HCl (Vitamin B1) 100 mg PO BIDCM [facility] Stop: 04/14/19 08:01 Last Admin: 04/12/19 08:13 Dose: 100 mg Medical Necessity - Tobacco Use Smoking Status: Former smoker Tobacco Use: Non-smoker Assessment/Plan All Active Problems Shortness of breath (Acute) Venous stasis dermatitis (Acute) Shock (Acute) Beta jey toxicity (Acute) Overdose of beta-adrenergic antagonist drug (Acute) DONNY (acute kidney injury) (Acute) Elevated blood pressure (Acute) Hyponatremia (Acute) Chest pain (Acute) This is 53 year old M with past medical history of morbid obesity, chronic venous dermatitis, chronic alcoholic use disorder was admitted with feeling sweaty with burning chest pain. Patient was bradycardic. History of drug overdose possible carvedilol and lisinopril, and admitted with acute kidney injury with hyperkalemia and hypotension in ICU 1. Hypotension, secondary to carvedilol and lisinopril overdose: Patient currently more awake and alert. He had glucagon in the ER. Currently hemodynamically stable. Discussed with the eye physician. Blood pressure is better, systolic about 110. Will transfer to PCU. 2. Acute kidney injury, pre-renal or possible ATN: Patient urine output 350 mL. BUN/creatinine 17/2.5 233/3.86. Furnace Filler is been consulted. Renal ultrasound 4.6 cm cortical cyst at the mid to lower pole of the right kidney, otherwise normal ultrasound of the kidneys. 3. Hyperkalemia secondary to Lisinopril overdose, no EKG changes: K was 6.6 on 04/11. Currently 4.3. Patient received Kayexalate. No significant EKG changes of hypokalemia 4. Elevated lactic acid likely secondary to #1,: Resolved. 5. Suicidal attempt: Mental health crisis team. 6. Hyponatremia, secondary to DONNY improving. 7. Chest pain, atypical likely secondary to shock. EKG shows no acute ST-T changes, troponins negative. 8. Elevated transaminases probably from nonalcoholic steatohepatitis: ALT and AST are elevated. Total bili normal alkaline phosphatase 92. DVT PPx- Heparin SC Laboratory Results 04/12/19 03:40: Sodium 133 L, Potassium 6.0 H*, Chloride 100, Carbon Dioxide 22.0, Anion Gap 11, BUN 28 H, Creatinine 3.32 H, Estim Creat Clear Calc 22.95, Est GFR (MDRD) Af Amer 25 L, Est GFR (MDRD) Non-Af 21 L, BUN/Creatinine Ratio 8.4 L, Glucose 110 H, Calcium 7.2 L, Total Bilirubin 1.00, AST 48 H, ALT 64 H, Alkaline Phosphatase 92, Total Protein 6.5, Albumin 2.9 L, Globulin 3.6, Albumin/Globulin Ratio 0.8 L 04/12/19 03:40: WBC 14.0 H, RBC 4.24 L, Hgb 12.9 L, Hct 37.9 L, MCV 89.4, MCH 30.4, MCHC 34.0, RDW 13.8, RDW Differential 43.7, Plt Count 186, MPV 9.1, Immature Gran % (Auto) 0.300, Neut % (Auto) 77.5 H, Lymph % (Auto) 12.5 L, Hartley % (Auto) 9.1, Eos % (Auto) 0.4, Baso % (Auto) 0.2, Absolute Neuts (auto) 10.9 H, Absolute Lymphs (auto) 1.75, Total Counted Not Reportable 04/12/19 14:20: Sodium 134 L, Potassium 4.3, Chloride 101, Carbon Dioxide 24.0, Anion Gap 9, BUN 33 H, Creatinine 3.86 H, Estim Creat Clear Calc 19.74, Est GFR (MDRD) Af Amer 21 L, Est GFR (MDRD) Non-Af 17 L, BUN/Creatinine Ratio 8.5 L, Glucose 113 H, Calcium 7.2 L Clinical Impression(s) from Imaging Studies Chest X-Ray 04/11/19 11:19 IMPRESSION: Mild cardiomegaly. Mild degree of vascular congestion. Abdomen CTA 04/11/19 12:34 IMPRESSION: Hepatomegaly and fatty infiltration of the liver. Minimal amount of free fluid along the inferior medial aspect of the liver. Small amount of pericholecystic fluid. Right renal cyst. Chest CTA 04/11/19 12:34 IMPRESSION: Linear atelectasis and/or scarring at the lung bases. Fatty infiltration of the liver. Gallbladder Ultrasound 04/11/19 13:41 IMPRESSION: Hepatomegaly. Fatty attrition of the liver. Thickened gallbladder wall. Small amount of pericholecystic fluid. Renal Ultrasound 04/12/19 05:55 IMPRESSION: 1. 4.6 cm cortical cyst at the mid to lower pole of the right kidney, otherwise normal ultrasound of the kidneys. 2. The urinary bladder is collapsed around a Chung catheter.. Code Visit Inpatient E&M: 16123 Subs Hosp L3
[2019-04-13] VITALS (11 sets, daily range): BP systolic 105–126; BP diastolic 62–68; PULSE 61–80; RESP 14–18; TEMP 37–37.3; O2SAT 94–97
[2019-04-13] MEDS: Acetaminophen 325 MG Tablet 650 MG PO ×2 (02:17→11:06)
[2019-04-13] MEDS: Heparin Injection (Vial) 5,000 UNIT/ML VIAL 5000 UNIT SC ×3 (05:46→22:28)
--- NOTE | 2019-04-13 06:16 | PCA ---
04/13/19 - notified CHRISTINE Boateng of weight change.
[2019-04-13 06:17] LABS: Absolute Lymphocyte Count 1.34 X10^3/ul (0.83-4.51); Absolute Neutrophil Count 5.4 X10^3/uL (2.0-7.7); Basophil# 0.04 X10^3/uL; Basophil% 0.5 % (0-1); Eosinophil# 0.15 X10^3/uL; Eosinophils% 1.9 % (0-5); Hematocrit 34.5 % (40-54); Hemoglobin 11.8 g/dl (13.0-16.5); Lymphocyte # 1.34 X10^3/ul (4.0); Lymphocyte % 17.3 % (19-41); Mean Corp Hgb Conc 34.2 g/gl (32-36); Mean Corpuscular Hgb 30.9 pg (27.0-32.0); Mean Corpuscular Volume 90.3 fL (80-94); Mean Platelet Vol. 9.9 fl (6.2-12.0); Monocyte# 0.76 X10^3/uL; Monocyte% 9.8 % (0-10); Neutrophil # 5.44 X10^3/uL (2.7-7.7); Neutrophil % 70.4 % (47-70); Platelet Count 111 K/mm3 (150-450); RBC Distribution Width CV 13.9 % (11.6-14.6); RBC Distribution Width SD 45.8 fl (35.1-43.9); Red Blood Count 3.82 M/mm3 (4.6-6.2); White Blood Count 7.7 K/mm3 (4.4-11.0)
[2019-04-13 06:18] LABS: POSITIVE COUNT NO; POSITIVE DIFFERENTIAL NO; POSITIVE MORPHOLOGY NO
[2019-04-13] MEDS: 0.9% Normal Saline 1,000 ML 125 ML IV ×3 (06:21→22:31)
[2019-04-13 06:32] LABS: Anion Gap 12 (5-15); BUN 36 mg/dL (7-18); BUN/Creat Ratio 8.9 RATIO (10-20); Calcium,Total 7.1 mg/dL (8.5-10.1); Chloride 106 mmol/L (98-107); Creatinine, Serum 4.05 mg/dL (0.70-1.30); EST Glomerular Filtration Rate 16 mL/min (>60); Est Glom Filt Rate - Afr Amer 20 mL/min (>60); Estimated Creatinine Clearance 18.82 ml/min; Glucose 95 mg/dL (74-106); Potassium 4.6 mmol/L (3.5-5.1); Sodium Level 137 mmol/L (136-145)
--- NOTE | 2019-04-13 07:42 | PN_ITS ---
Patient Problems: Active and Suspected Problems Shock (Acute) Beta jey toxicity (Acute) Overdose of beta-adrenergic antagonist drug (Acute) DONNY (acute kidney injury) (Acute) Subjective: The patient was seen and examined at the bedside this morning. Events from the last 24 hours have been reviewed. The patient is currently afebrile, hemodynamically stable and maintaining appropriate oxygen saturations on room air. Heart rate is within normal limits. Objective: The patient's most recent lab work, culture data and imaging studies have all been personally reviewed. Blood and urine cultures have shown no growth to date. - Physical Exam General: Alert, Cooperative, No apparent distress HEENT: Atraumatic, PERRLA, Normocephalic Oral: No Gingival or Mucosal Lesions/ Ulcerations Neck: Supple, No Nodes, Trachea Midline Lungs: No rhonchi, No wheeze, No rales, Diminished Cardiovascular: Regular rate, Regular Rhythm, Normal S1, Normal S2, Murmur Abdomen: Bowel Sounds Present, Soft, Non Tender, Obese Extremities: No clubbing, No cyanosis, Edema Skin: No breakdown Musculoskeletal: No Tenderness to Palpation of Joints or Extremities Lymphatic: No Cervical, Supraclavicular, or Inguinal Adenopathy Neurological: Cranial nerves II-XII grossly intact, Neuro grossly intact Psych/Mental Status: Normal Affect, Appropriate Vital Signs Temp Pulse Resp BP Pulse Ox 98.6 F 70 18 126/67 H 97 04/13/19 02:00 04/13/19 07:06 04/13/19 02:00 04/13/19 02:00 04/13/19 02:00 Oxygen Flow Rate (L/min) 2 Oxygen Delivery Method Room Air Weight: 293 lb 14.019 oz Body Mass Index (BMI) 45.8 Intake and Output for Last 24 Hours 04/11/19 04/12/19 04/13/19 23:59 23:59 23:59 Intake Total 4441 / 4441 2564 / 2564 849 / 849 Output Total 50 / 50 650 / 650 750 / 750 Balance 4391 / 4391 1914 / 191 99 / 99 Laboratory Tests Past 24 Hrs 04/12/19 04/13/19 04/13/19 14:20 06:00 06:00 WBC 7.7 RBC 3.82 L Hgb 11.8 L Hct 34.5 L MCV 90.3 MCH 30.9 MCHC 34.2 RDW 13.9 RDW Differential 45.8 H Plt Count 111 L MPV 9.9 Immature Gran % (Auto) 0.100 Neut % (Auto) 70.4 H Lymph % (Auto) 17.3 L [place] % (Auto) 9.8 Eos % (Auto) 1.9 Baso % (Auto) 0.5 Absolute Neuts (auto) 5.4 Absolute Lymphs (auto) 1.34 Total Counted Not Reportable Sodium 134 L 137 Potassium 4.3 4.6 Chloride 101 106 Carbon Dioxide 24.0 19.0 L Anion Gap 9 12 BUN 33 H 36 H Creatinine 3.86 H 4.05 H Estim Creat Clear Calc 19.74 18.82 Est GFR (MDRD) Af Amer 21 L 20 L Est GFR (MDRD) Non-Af 17 L 16 L BUN/Creatinine Ratio 8.5 L 8.9 L Glucose 113 H 95 Calcium 7.2 L 7.1 L Clinical Impression(s) from Imaging Studies Chest X-Ray 04/11/19 11:19 IMPRESSION: Mild cardiomegaly. Mild degree of vascular congestion. Electronically Signed: Jason Trna, at 13:02 EDT , Service support , Abdomen CTA 04/11/19 12:34 IMPRESSION: Hepatomegaly and fatty infiltration of the liver. Minimal amount of free fluid along the inferior medial aspect of the liver. Small amount of pericholecystic fluid. Right renal cyst. Electronically Signed: Jason Tran, at 13:32 EDT , Service support , ADDENDUM: 04/11/19 1514 Chest CTA 04/11/19 12:34 IMPRESSION: Linear atelectasis and/or scarring at the lung bases. Fatty infiltration of the liver. Electronically Signed: Jason Tran, at 13:35 EDT , Service support , Gallbladder Ultrasound 04/11/19 13:41 IMPRESSION: Hepatomegaly. Fatty attrition of the liver. Thickened gallbladder wall. Small amount of pericholecystic fluid. Electronically Signed: Jason Chelsea, at 15:13 EDT , Service support , Renal Ultrasound 04/12/19 05:55 IMPRESSION: 1. 4.6 cm cortical cyst at the mid to lower pole of the right kidney, otherwise normal ultrasound of the kidneys. 2. The urinary bladder is collapsed around a Chung catheter.. Electronically Signed: Vinnie Haynes MD at 14:30 EDT , Service support , Medical Necessity - Tobacco Use Smoking Status: Former smoker Tobacco Use: Non-smoker Assessment/Plan All Active Problems Shortness of breath (Acute) Venous stasis dermatitis (Acute) Shock (Acute) Beta jey toxicity (Acute) Overdose of beta-adrenergic antagonist drug (Acute) DONNY (acute kidney injury) (Acute) Elevated blood pressure (Acute) Hyponatremia (Acute) Chest pain (Acute) RECOMMENDATIONS: 1. Continue Librium and folic acid/thiamine supplementation. 2. Continue CIWA protocol. 3. Crisis evaluation. 4. Continue suicide precautions. 5. Encourage incentive spirometer use while in bed. Mobilize patient as tolerated. IMPRESSIONS: 1. Hypotension/bradycardia secondary to intentional self-harm overdose of probable beta-jey Resolved. Patient's blood pressure is acceptable at this time. High clinical suspicion that patient has bradycardia and hypotension secondary to overdose of carvedilol. Continue to provide supportive therapy. 2. Suicide attempt/depression Patient does report depression. Patient will need crisis evaluation prior to discharge. Continue suicide precautions. 3. Alcoholism/probable withdrawal syndrome Patient with extensive alcohol history. High clinical suspicion for the development of withdrawal. Patient appears to be doing well at this time, but will continue with CIWA protocol. Continue Librium as ordered. 4. Acute kidney injury Patient volume depleted on presentation and hypotensive. Unclear how long patient was hypotensive. Patient may have an element of ATN secondary to this hypotension, exacerbated by baseline DANYELLE inhibitor. Nephrology is following. There is no acute indication for renal replacement therapy. 5. Chronic diastolic congestive heart failure/morbid obesity/depression/recent hospitalization Complicates care, management, recovery and prognosis. Patient will need crisis evaluation. Patient does report that he would like to remain a full code at this time. This note was generated with [employer] dictation software. It may contain incorrect words, spelling, and punctuation that were not noted in checking the note before signing. DISPOSITION: Given the patient's lack of further ICU/pulmonary needs, will sign off. Please call with any questions. Code Visit Inpatient E&M: 50923 Subs Hosp L2
[2019-04-13] MEDS: Folic Acid 1 MG Tablet PO (08:04)
--- NOTE | 2019-04-13 09:37 | CASEMGMT ---
SW met with patient regarding, self pay, substance abuse, and mental health. Patient is overwhelmed when it comes to paperwork for Medicaid and disability etc. He states he is tired of living like this. He cannot get around like he used to so he turned to alcohol to cope. He knows this is not the best choice. He is seeking help for mental health and alcohol. SW told him once he is medically cleared crisis will come and see him and possibly place him in a facility. ALCIDES gave patient a Medicaid application and information on disability. lAicia FRITZ MSW
[2019-04-13] MEDS: Thiamine Hydrochloride 100 MG Tablet PO ×2 (10:57→17:34)
--- NOTE | 2019-04-13 14:29 | PCM.PN.HOSP ---
Patient Problems: Active and Suspected Problems Shock (Acute) Beta jey toxicity (Acute) Overdose of beta-adrenergic antagonist drug (Acute) DONNY (acute kidney injury) (Acute) Subjective: Patient urine output 1400 mL since midnight today, 04/13/2019. Yesterday was 650 mL. Creatinine is still going up but it seems patient is in diuresis phase of acute kidney injury. Blood pressure is controlled. Patient is medically cleared to follow-up for crisis management team. Vitals/I&O's: Vital Signs Temp Pulse Resp BP Pulse Ox 98.7 F 80 18 105/62 94 04/13/19 07:54 04/13/19 11:48 04/13/19 07:54 04/13/19 07:54 04/13/19 07:54 Oxygen Flow Rate (L/min) 2 Oxygen Delivery Method Room Air Weight: 293 lb 14.019 oz Body Mass Index (BMI) 45.8 Intake and Output for Last 24 Hours 04/11/19 04/12/19 04/13/19 23:59 23:59 23:59 Intake Total 4441 / 4441 2564 / 2564 2082 / 2082 Output Total 50 / 50 650 / 650 1400 / 1400 Balance 4391 / 4391 1914 / 1914 683 / 683 General: Alert, Oriented x3, Cooperative HEENT: Atraumatic, PERRLA, EOMI, Normocephalic Neck: Supple, No JVD, Negative Carotid Bruits Lungs: Clear to auscultation, No rhonchi, No wheeze, No rales, Diminished Cardiovascular: Regular rate, Regular Rhythm, Normal S1, Normal S2, No murmurs Abdomen: Bowel Sounds Present, Soft, Non Tender, Non-Distended Extremities: No edema, Capillary Refill Less than 3 Seconds Skin: No rashes, No breakdown Musculoskeletal: No Tenderness to Palpation of Joints or Extremities, Arthritic Changes Neurological: Cranial nerves II-XII grossly intact, Deep Tendon Reflexes 2+/4 and Symmetrical, Neuro grossly intact, Motor Exam 5/5 strength throughout Psych/Mental Status: Normal Affect, Appropriate Microbiology Past 72 Hours 04/11/19 11:39 Blood Culture (Wb) - Anticubital Right Blood Culture - Preliminary No growth in 48 hours. 04/11/19 11:30 Blood Culture (Wb) - Left Hand Blood Culture - Preliminary No growth in 48 hours. 04/11/19 13:40 Urine, Clean Catch Urine Culture - Final Culture exhibits no growth. Laboratory Results 04/12/19 14:20: Sodium 134 L, Potassium 4.3, Chloride 101, Carbon Dioxide 24.0, Anion Gap 9, BUN 33 H, Creatinine 3.86 H, Estim Creat Clear Calc 19.74, Est GFR (MDRD) Af Amer 21 L, Est GFR (MDRD) Non-Af 17 L, BUN/Creatinine Ratio 8.5 L, Glucose 113 H, Calcium 7.2 L 04/13/19 06:00: WBC 7.7, RBC 3.82 L, Hgb 11.8 L, Hct 34.5 L, MCV 90.3, MCH 30.9, MCHC 34.2, RDW 13.9, RDW Differential 45.8 H, Plt Count 111 L, MPV 9.9, Immature Gran % (Auto) 0.100, Neut % (Auto) 70.4 H, Lymph % (Auto) 17.3 L, [place] % (Auto) 9.8, Eos % (Auto) 1.9, Baso % (Auto) 0.5, Absolute Neuts (auto) 5.4, Absolute Lymphs (auto) 1.34, Total Counted Not Reportable 04/13/19 06:00: Sodium 137, Potassium 4.6, Chloride 106, Carbon Dioxide 19.0 L, Anion Gap 12, BUN 36 H, Creatinine 4.05 H, Estim Creat Clear Calc 18.82, Est GFR (MDRD) Af Amer 20 L, Est GFR (MDRD) Non-Af 16 L, BUN/Creatinine Ratio 8.9 L, Glucose 95, Calcium 7.1 L Current Medications Acetaminophen (Tylenol) 650 mg PO Q6H PRN PRN PRN Reason: Mild Pain (1-3)/Temp > 100.7 F Last Admin: 04/13/19 11:06 Dose: 650 mg Albuterol Sulfate (Ventolin Aerosols) 2.5 mg INHALATION Q2H PRN PRN PRN Reason: SOB/Wheezing Chlordiazepoxide (Librium) 25 mg PO TID PRN PRN PRN Reason: AGITATION Folic Acid (Folic Acid) 1 mg PO DAILY@0800 LUCIANO Stop: 04/14/19 08:01 Last Admin: 04/13/19 08:04 Dose: 1 mg Heparin Sodium (Porcine) (Heparin Na) 5,000 unit SC Q8 PENDING SALE TO [facility] Last Admin: 04/13/19 05:46 Dose: 5,000 unit Sodium Chloride () 250 mls @ 15 mls/hr IV .[id number] PRN PRN Reason: SALINE FLUSH Sodium Chloride () 1,000 mls @ 125 mls/hr IV .Q8H PENDING SALE TO [facility] Last Admin: 04/13/19 06:21 Dose: 125 mls/hr Lorazepam (Ativan) 2 mg PO Q2H PRN PRN; Protocol PRN Reason: CIWA score > 8 but <15 Lorazepam (Ativan) 2 mg PO UD PRN; Protocol PRN Reason: CIWA score >/=15. Lorazepam (Ativan) 2 mg IV Q2H PRN PRN; Protocol PRN Reason: CIWA score > 8 but <15 Lorazepam (Ativan) 2 mg IV UD PRN; Protocol PRN Reason: CIWA score >/=15. Magnesium Hydroxide (Milk Of Magnesia) 30 ml PO DAILY PRN PRN PRN Reason: Constipation Last Admin: 04/11/19 16:34 Dose: 30 ml Ondansetron HCl (Zofran) 4 mg IV Q8H PRN PRN PRN Reason: NAUSEA/VOMITING Last Admin: 04/11/19 16:34 Dose: 4 mg Phenol/Menthol (Chloraseptic (Bkc)) 3 spray MM Q2H PRN PRN PRN Reason: SORE THROAT Psyllium Hydrophilic Mucilloid (Metamucil) 1 packet PO DAILY PRN PRN PRN Reason: Constipation Sodium Chloride () 5 - 15 ml IV UD PRN PRN Reason: SALINE FLUSH Last Admin: 04/11/19 21:48 Dose: 10 ml Thiamine HCl (Vitamin B1) [facility] Stop: 04/14/19 08:01 Last Admin: 04/13/19 10:57 Dose: 100 mg Medical Necessity - Tobacco Use Smoking Status: Former smoker Tobacco Use: Non-smoker Assessment/Plan All Active Problems Shortness of breath (Acute) Venous stasis dermatitis (Acute) Shock (Acute) Beta jey toxicity (Acute) Overdose of beta-adrenergic antagonist drug (Acute) DONNY (acute kidney injury) (Acute) Elevated blood pressure (Acute) Hyponatremia (Acute) Chest pain (Acute) This is 53 year old M with past medical history of morbid obesity, chronic venous dermatitis, chronic alcoholic use disorder was admitted with feeling sweaty with burning chest pain. Patient was bradycardic. History of drug overdose possible carvedilol and lisinopril, and admitted with acute kidney injury with hyperkalemia and hypotension in ICU 1. Hypotension, secondary to carvedilol and lisinopril overdose: Patient currently more awake and alert. He had glucagon in the ER. Currently hemodynamically stable. Discussed with the general assignment reporter. Blood pressure is better, systolic about 110. Patient was transferred to PCU on 04/12 2019. Blood pressure is stable. Blood cultures x2 are negative for more than 48 hours. Urine culture negative. 2. Acute kidney injury, pre-renal or possible ATN: Patient urine output 350 mL. BUN/creatinine 17/2.5- 33/3.86 -36/4.05. Rig Supervisor is been consulted. Renal ultrasound 4.6 cm cortical cyst at the mid to lower pole of the right kidney, otherwise normal ultrasound of the kidneys. Patient is in diuresis phase of acute kidney injury. I expect her creatinine will start coming down tomorrow. 3. Hyperkalemia secondary to Lisinopril overdose, no EKG changes: K was 6.6 on 04/11. Patient received Kayexalate. No significant EKG changes of hypokalemia. Repeat potassium is stable. Anion gap 9. 4. Elevated lactic acid likely secondary to #1,: Resolved. 5. Suicidal attempt: Mental health crisis team. Patient is hemodynamically stable for mental health follow-up. Will need most probably inpatient psych facility evaluation and management. 6. Hyponatremia, secondary to DONNY improving. 7. Chest pain, atypical likely secondary to shock. EKG shows no acute ST-T changes, troponins negative. 8. Elevated transaminases probably from nonalcoholic steatohepatitis: ALT and AST are elevated. Total bili normal alkaline phosphatase 92. DVT PPx- Heparin SC Microbiology Past 72 Hours 04/11/19 11:39 Blood Culture (Wb) - Anticubital Right Blood Culture - Preliminary No growth in 48 hours. 04/11/19 11:30 Blood Culture (Wb) - Left Hand Blood Culture - Preliminary No growth in 48 hours. 04/11/19 13:40 Urine, Clean Catch Urine Culture - Final Culture exhibits no growth. Laboratory Results 04/12/19 14:20: Sodium 134 L, Potassium 4.3, Chloride 101, Carbon Dioxide 24.0, Anion Gap 9, BUN 33 H, Creatinine 3.86 H, Estim Creat Clear Calc 19.74, Est GFR (MDRD) Af Amer 21 L, Est GFR (MDRD) Non-Af 17 L, BUN/Creatinine Ratio 8.5 L, Glucose 113 H, Calcium 7.2 L 04/13/19 06:00: WBC 7.7, RBC 3.82 L, Hgb 11.8 L, Hct 34.5 L, MCV 90.3, MCH 30.9, MCHC 34.2, RDW 13.9, RDW Differential 45.8 H, Plt Count 111 L, MPV 9.9, Immature Gran % (Auto) 0.100, Neut % (Auto) 70.4 H, Lymph % (Auto) 17.3 L, [place] % (Auto) 9.8, Eos % (Auto) 1.9, Baso % (Auto) 0.5, Absolute Neuts (auto) 5.4, Absolute Lymphs (auto) 1.34, Total Counted Not Reportable 04/13/19 06:00: Sodium 137, Potassium 4.6, Chloride 106, Carbon Dioxide 19.0 L, Anion Gap 12, BUN 36 H, Creatinine 4.05 H, Estim Creat Clear Calc 18.82, Est GFR (MDRD) Af Amer 20 L, Est GFR (MDRD) Non-Af 16 L, BUN/Creatinine Ratio 8.9 L, Glucose 95, Calcium 7.1 L Clinical Impression(s) from Imaging Studies Chest X-Ray 04/11/19 11:19 IMPRESSION: Mild cardiomegaly. Mild degree of vascular congestion. Abdomen CTA 04/11/19 12:34 IMPRESSION: Hepatomegaly and fatty infiltration of the liver. Minimal amount of free fluid along the inferior medial aspect of the liver. Small amount of pericholecystic fluid. Right renal cyst. Chest CTA 04/11/19 12:34 IMPRESSION: Linear atelectasis and/or scarring at the lung bases. Fatty infiltration of the liver. Gallbladder Ultrasound 04/11/19 13:41 IMPRESSION: Hepatomegaly. Fatty attrition of the liver. Thickened gallbladder wall. Small amount of pericholecystic fluid. Renal Ultrasound 04/12/19 05:55 IMPRESSION: 1. 4.6 cm cortical cyst at the mid to lower pole of the right kidney, otherwise normal ultrasound of the kidneys. 2. The urinary bladder is collapsed around a Chung catheter.. Code Visit Inpatient E&M: 13557 Subs Hosp L3
--- NOTE | 2019-04-13 14:34 | PN_ITS ---
Patient Problems: Active and Suspected Problems Shock (Acute) Beta jey toxicity (Acute) Overdose of beta-adrenergic antagonist drug (Acute) DONNY (acute kidney injury) (Acute) Subjective: Patient urine output 1400 mL since midnight today, 04/13/2019. Yesterday was 650 mL. Creatinine is still going up but it seems patient is in diuresis phase of acute kidney injury. Blood pressure is controlled. Patient is medically cleared to follow-up for crisis management team. Vitals/I&O's: Vital Signs Temp Pulse Resp BP Pulse Ox 98.7 F 80 18 105/62 94 04/13/19 07:54 04/13/19 11:48 04/13/19 07:54 04/13/19 07:54 04/13/19 07:54 Oxygen Flow Rate (L/min) 2 Oxygen Delivery Method Room Air Weight: 293 lb 14.019 oz Body Mass Index (BMI) 45.8 Intake and Output for Last 24 Hours 04/11/19 04/12/19 04/13/19 23:59 23:59 23:59 Intake Total 4441 / 4441 2564 / 2564 2082 / 2082 Output Total 50 / 50 650 / 650 1400 / 1400 Balance 4391 / 4391 1914 / 1914 683 / 683 General: Alert, Oriented x3, Cooperative HEENT: Atraumatic, PERRLA, EOMI, Normocephalic Neck: Supple, No JVD, Negative Carotid Bruits Lungs: Clear to auscultation, No rhonchi, No wheeze, No rales, Diminished Cardiovascular: Regular rate, Regular Rhythm, Normal S1, Normal S2, No murmurs Abdomen: Bowel Sounds Present, Soft, Non Tender, Non-Distended Extremities: No edema, Capillary Refill Less than 3 Seconds Skin: No rashes, No breakdown Musculoskeletal: No Tenderness to Palpation of Joints or Extremities, Arthritic Changes Neurological: Cranial nerves II-XII grossly intact, Deep Tendon Reflexes 2+/4 and Symmetrical, Neuro grossly intact, Motor Exam 5/5 strength throughout Psych/Mental Status: Normal Affect, Appropriate Microbiology Past 72 Hours 04/11/19 11:39 Blood Culture (Wb) - Anticubital Right Blood Culture - Preliminary No growth in 48 hours. 04/11/19 11:30 Blood Culture (Wb) - Left Hand Blood Culture - Preliminary No growth in 48 hours. 04/11/19 13:40 Urine, Clean Catch Urine Culture - Final Culture exhibits no growth. Laboratory Results 04/12/19 14:20: Sodium 134 L, Potassium 4.3, Chloride 101, Carbon Dioxide 24.0, Anion Gap 9, BUN 33 H, Creatinine 3.86 H, Estim Creat Clear Calc 19.74, Est GFR (MDRD) Af Amer 21 L, Est GFR (MDRD) Non-Af 17 L, BUN/Creatinine Ratio 8.5 L, Glucose 113 H, Calcium 7.2 L 04/13/19 06:00: WBC 7.7, RBC 3.82 L, Hgb 11.8 L, Hct 34.5 L, MCV 90.3, MCH 30.9, MCHC 34.2, RDW 13.9, RDW Differential 45.8 H, Plt Count 111 L, MPV 9.9, Immature Gran % (Auto) 0.100, Neut % (Auto) 70.4 H, Lymph % (Auto) 17.3 L, [place] % (Auto) 9.8, Eos % (Auto) 1.9, Baso % (Auto) 0.5, Absolute Neuts (auto) 5.4, Absolute Lymphs (auto) 1.34, Total Counted Not Reportable 04/13/19 06:00: Sodium 137, Potassium 4.6, Chloride 106, Carbon Dioxide 19.0 L, Anion Gap 12, BUN 36 H, Creatinine 4.05 H, Estim Creat Clear Calc 18.82, Est GFR (MDRD) Af Amer 20 L, Est GFR (MDRD) Non-Af 16 L, BUN/Creatinine Ratio 8.9 L, Glucose 95, Calcium 7.1 L Current Medications Acetaminophen (Tylenol) 650 mg PO Q6H PRN PRN PRN Reason: Mild Pain (1-3)/Temp > 100.7 F Last Admin: 04/13/19 11:06 Dose: 650 mg Albuterol Sulfate (Ventolin Aerosols) 2.5 mg INHALATION Q2H PRN PRN PRN Reason: SOB/Wheezing Chlordiazepoxide (Librium) 25 mg PO TID PRN PRN PRN Reason: AGITATION Folic Acid (Folic Acid) 1 mg PO DAILY@0800 [facility] Stop: 04/14/19 08:01 Last Admin: 04/13/19 08:04 Dose: 1 mg Heparin Sodium (Porcine) (Heparin Na) 5,000 unit SC Q8 [facility] Last Admin: 04/13/19 05:46 Dose: 5,000 unit Sodium Chloride () 250 mls @ 15 mls/hr IV .[id number] PRN PRN Reason: SALINE FLUSH Sodium Chloride () 1,000 mls @ 125 mls/hr IV .Q8H [facility] Last Admin: 04/13/19 06:21 Dose: 125 mls/hr Lorazepam (Ativan) 2 mg PO Q2H PRN PRN; Protocol PRN Reason: CIWA score > 8 but <15 Lorazepam (Ativan) 2 mg PO UD PRN; Protocol PRN Reason: CIWA score >/=15. Lorazepam (Ativan) 2 mg IV Q2H PRN PRN; Protocol PRN Reason: CIWA score > 8 but <15 Lorazepam (Ativan) 2 mg IV UD PRN; Protocol PRN Reason: CIWA score >/=15. Magnesium Hydroxide (Milk Of Magnesia) 30 ml PO DAILY PRN PRN PRN Reason: Constipation Last Admin: 04/11/19 16:34 Dose: 30 ml Ondansetron HCl (Zofran) 4 mg IV Q8H PRN PRN PRN Reason: NAUSEA/VOMITING Last Admin: 04/11/19 16:34 Dose: 4 mg Phenol/Menthol (Chloraseptic (Bkc)) 3 spray MM Q2H PRN PRN PRN Reason: SORE THROAT Psyllium Hydrophilic Mucilloid (Metamucil) 1 packet PO DAILY PRN PRN PRN Reason: Constipation Sodium Chloride () 5 - 15 ml IV UD PRN PRN Reason: SALINE FLUSH Last Admin: 04/11/19 21:48 Dose: 10 ml Thiamine HCl (Vitamin B1) 100 mg PO [facility] [place] Stop: 04/14/19 08:01 Last Admin: 04/13/19 10:57 Dose: 100 mg Medical Necessity - Tobacco Use Smoking Status: Former smoker Tobacco Use: Non-smoker Assessment/Plan All Active Problems Shortness of breath (Acute) Venous stasis dermatitis (Acute) Shock (Acute) Beta jey toxicity (Acute) Overdose of beta-adrenergic antagonist drug (Acute) DONNY (acute kidney injury) (Acute) Elevated blood pressure (Acute) Hyponatremia (Acute) Chest pain (Acute) This is 53 year old M with past medical history of morbid obesity, chronic venous dermatitis, chronic alcoholic use disorder was admitted with feeling sweaty with burning chest pain. Patient was bradycardic. History of drug overdose possible carvedilol and lisinopril, and admitted with acute kidney injury with hyperkalemia and hypotension in ICU 1. Hypotension, secondary to carvedilol and lisinopril overdose: Patient currently more awake and alert. He had glucagon in the ER. Currently hemodynamically stable. Discussed with the design/animation instructor. Blood pressure is better, systolic about 110. Patient was transferred to PCU on 04/12 2019. Blood pressure is stable. Blood cultures x2 are negative for more than 48 hours. Urine culture negative. 2. Acute kidney injury, pre-renal or possible ATN: Patient urine output 350 mL. BUN/creatinine 17/2.5- 33/3.86 -36/4.05. Replanting Machine Crewman is been consulted. Fartun l ultrasound 4.6 cm cortical cyst at the mid to lower pole of the right kidney, otherwise normal ultrasound of the kidneys. Patient is in diuresis phase of acute kidney injury. I expect her creatinine will start coming down tomorrow. 3. Hyperkalemia secondary to Lisinopril overdose, no EKG changes: K was 6.6 on 04/11. Patient received Kayexalate. No significant EKG changes of hypokalemia. Repeat potassium is stable. Anion gap 9. 4. Elevated lactic acid likely secondary to #1,: Resolved. 5. Suicidal attempt: Mental health crisis team. Patient is hemodynamically s table for mental health follow-up. Will need most probably inpatient psych facility evaluation and management. 6. Hyponatremia, secondary to DONNY improving. 7. Chest pain, atypical likely secondary to shock. EKG shows no acute ST-T changes, troponins negative. 8. Elevated transaminases probably from nonalcoholic steatohepatitis: ALT and AST are elevated. Total bili normal alkaline phosphatase 92. DVT PPx- Heparin SC Microbiology Past 72 Hours 04/11/19 11:39 Blood Culture (Wb) - Anticubital Right Blood Culture - Preliminary No growth in 48 hours. 04/11/19 11:30 Blood Culture (Wb) - Left Hand Blood Culture - Preliminary No growth in 48 hours. 04/11/19 13:40 Urine, Clean Catch Urine Culture - Final Culture exhibits no growth. Laboratory Results 04/12/19 14:20: Sodium 134 L, Potassium 4.3, Chloride 101, Carbon Dioxide 24.0, Anion Gap 9, BUN 33 H, Creatinine 3.86 H, Estim Creat Clear Calc 19.74, Est GFR (MDRD) Af Amer 21 L, Est GFR (MDRD) Non-Af 17 L, BUN/Creatinine Ratio 8.5 L, Glucose 113 H, Calcium 7.2 L 04/13/19 06:00: WBC 7.7, RBC 3.82 L, Hgb 11.8 L, Hct 34.5 L, MCV 90.3, MCH 30.9, MCHC 34.2, RDW 13.9, RDW Differential 45.8 H, Plt Count 111 L, MPV 9.9, Immature Gran % (Auto) 0.100, Neut % (Auto) 70.4 H, Lymph % (Auto) 17.3 L, [place] % (Auto) 9.8, Eos % (Auto) 1.9, Baso % (Auto) 0.5, Absolute Neuts (auto) 5.4, Absolute Lymphs (auto) 1.34, Total Counted Not Reportable 04/13/19 06:00: Sodium 137, Potassium 4.6, Chloride 106, Carbon Dioxide 19.0 L, Anion Gap 12, BUN 36 H, Creatinine 4.05 H, Estim Creat Clear Calc 18.82, Est GFR (MDRD) Af Amer 20 L, Est GFR (MDRD) Non-Af 16 L, BUN/Creatinine Ratio 8.9 L, Glucose 95, Calcium 7.1 L Clinical Impression(s) from Imaging Studies Chest X-Ray 04/11/19 11:19 IMPRESSION: Mild cardiomegaly. Mild degree of vascular congestion. Abdomen CTA 04/11/19 12:34 IMPRESSION: Hepatomegaly and fatty infiltration of the liver. Minimal amount of free fluid along the inferior medial aspect of the liver. Small amount of pericholecystic fluid. Right renal cyst. Chest CTA 04/11/19 12:34 IMPRESSION: Linear atelectasis and/or scarring at the lung bases. Fatty infiltration of the liver. Gallbladder Ultrasound 04/11/19 13:41 IMPRESSION: Hepatomegaly. Fatty attrition of the liver. Thickened gallbladder wall. Small amount of pericholecystic fluid. Renal Ultrasound 04/12/19 05:55 IMPRESSION: 1. 4.6 cm cortical cyst at the mid to lower pole of the right kidney, otherwise normal ultrasound of the kidneys. 2. The urinary bladder is collapsed around a Chung catheter.. Code Visit Inpatient E&M: 78652 Subs Hosp L3
--- NOTE | 2019-04-13 16:11 | NURSING ---
Crisis callled to inform us that patient will have to be probated on Monday due to hospitalization of > 24hrs. Also concerned regarding Labs and VS. New labs and VS need to be faxed to [facility] at [phone] upon obtaining.
--- NOTE | 2019-04-13 19:59 | PCM.PN.REN ---
Patient Problems: Active and Suspected Problems Shock (Acute) Beta jey toxicity (Acute) Overdose of beta-adrenergic antagonist drug (Acute) DONNY (acute kidney injury) (Acute) Subjective: No complaints - Physical Exam General: Alert, Oriented x3 HEENT: Atraumatic Oral: Moist Mucosa Neck: Supple Lungs: Clear to auscultation, Normal air movement Cardiovascular: Regular rate, Regular Rhythm, Normal S1, Normal S2 Abdomen: Bowel Sounds Present, Soft, Non Tender Extremities: No clubbing Musculoskeletal: No Tenderness to Palpation of Joints or Extremities Lymphatic: No Cervical, Supraclavicular, or Inguinal Adenopathy Psych/Mental Status: Normal Affect Vital Signs Temp Pulse Resp BP Pulse Ox 98.9 F 73 16 120/68 96 04/13/19 17:59 04/13/19 19:00 04/13/19 17:59 04/13/19 17:59 04/13/19 17:59 Oxygen Flow Rate (L/min) 2 Oxygen Delivery Method Room Air Weight: 133.3 kg Body Mass Index (BMI) 45.8 Intake and Output for Last 24 Hours 04/11/19 04/12/19 04/13/19 23:59 23:59 23:59 Intake Total 4441 / 4441 2564 / 2564 3851 / 3851 Output Total 50 / 50 650 / 650 2500 / 2500 Balance 4391 / 4391 1914 / 1914 1351 / 1351 Microbiology Past 72 Hours 04/11/19 11:39 Blood Culture - Preliminary Blood Culture (Wb) - Anticubital Right No growth in 48 hours. 04/11/19 11:30 Blood Culture - Preliminary Blood Culture (Wb) - Left Hand No growth in 48 hours. 04/11/19 13:40 Urine Culture - Final Urine, Clean Catch Culture exhibits no growth. Laboratory Tests Past 24 Hrs 04/13/19 04/13/19 06:00 06:00 WBC 7.7 RBC 3.82 L Hgb 11.8 L Hct 34.5 L MCV 90.3 MCH 30.9 MCHC 34.2 RDW 13.9 RDW Differential 45.8 H Plt Count 111 L MPV 9.9 Immature Gran % (Auto) 0.100 Neut % (Auto) 70.4 H Lymph % (Auto) 17.3 L [place] % (Auto) 9.8 Eos % (Auto) 1.9 Baso % (Auto) 0.5 Absolute Neuts (auto) 5.4 Absolute Lymphs (auto) 1.34 Total Counted Not Reportable Sodium 137 Potassium 4.6 Chloride 106 Carbon Dioxide 19.0 L Anion Gap 12 BUN 36 H Creatinine 4.05 H Estim Creat Clear Calc 18.82 Est GFR (MDRD) Af Amer 20 L Est GFR (MDRD) Non-Af 16 L BUN/Creatinine Ratio 8.9 L Glucose 95 Calcium 7.1 L Medical Necessity - Tobacco Use Smoking Status: Former smoker Tobacco Use: Non-smoker Assessment/Plan All Active Problems Shortness of breath (Acute) Venous stasis dermatitis (Acute) Shock (Acute) Beta jey toxicity (Acute) Overdose of beta-adrenergic antagonist drug (Acute) DONNY (acute kidney injury) (Acute) Elevated blood pressure (Acute) Hyponatremia (Acute) Chest pain (Acute) Acute renal failure.ischemic ATN Cr continues to rise. Non oliguric No need for HD Keep MAP >65 Avoid ACEI/ARB Check renal function in am Hyperkalemia. resolved Renal team will continue to follow Makayla Hamiltno MD
[2019-04-14] VITALS (11 sets, daily range): BP systolic 114–138; BP diastolic 62–75; PULSE 60–80; RESP 16–18; TEMP 36.9–37.6; O2SAT 93–97
[2019-04-14] MEDS: 0.9% Normal Saline 1,000 ML 125 ML IV (06:14)
[2019-04-14] MEDS: Thiamine Hydrochloride 100 MG Tablet PO (07:36)
[2019-04-14] MEDS: Folic Acid 1 MG Tablet PO (07:36)
[2019-04-14 08:47] LABS: Absolute Lymphocyte Count 0.89 X10^3/ul (0.83-4.51); Absolute Neutrophil Count 4.8 X10^3/uL (2.0-7.7); Basophil# 0.02 X10^3/uL; Basophil% 0.3 % (0-1); Eosinophil# 0.16 X10^3/uL; Eosinophils% 2.5 % (0-5); Hematocrit 35.3 % (40-54); Hemoglobin 12.1 g/dl (13.0-16.5); Lymphocyte # 0.89 X10^3/ul (4.0); Lymphocyte % 13.9 % (19-41); Mean Corp Hgb Conc 34.3 g/gl (32-36); Mean Corpuscular Hgb 31.3 pg (27.0-32.0); Mean Corpuscular Volume 91.5 fL (80-94); Mean Platelet Vol. 9.4 fl (6.2-12.0); Monocyte# 0.56 X10^3/uL; Monocyte% 8.7 % (0-10); Neutrophil # 4.78 X10^3/uL (2.7-7.7); Neutrophil % 74.4 % (47-70); Platelet Count 114 K/mm3 (150-450); RBC Distribution Width CV 13.8 % (11.6-14.6); RBC Distribution Width SD 44.9 fl (35.1-43.9); Red Blood Count 3.86 M/mm3 (4.6-6.2); White Blood Count 6.4 K/mm3 (4.4-11.0)
[2019-04-14 08:48] LABS: POSITIVE COUNT NO; POSITIVE DIFFERENTIAL NO; POSITIVE MORPHOLOGY NO
[2019-04-14 09:10] LABS: Anion Gap 12 (5-15); BUN 34 mg/dL (7-18); BUN/Creat Ratio 8.9 RATIO (10-20); Calcium,Total 7.3 mg/dL (8.5-10.1); Chloride 106 mmol/L (98-107); Creatinine, Serum 3.81 mg/dL (0.70-1.30); EST Glomerular Filtration Rate 18 mL/min (>60); Est Glom Filt Rate - Afr Amer 21 mL/min (>60); Glucose 102 mg/dL (74-106); Potassium 4.1 mmol/L (3.5-5.1); Sodium Level 139 mmol/L (136-145)
[2019-04-14] MEDS: Heparin Injection (Vial) 5,000 UNIT/ML VIAL 5000 UNIT SC ×2 (09:32→22:35)
[2019-04-14] MEDS: LORazepam 1 MG Tablet 2 MG PO ×2 (12:50→16:53)
--- NOTE | 2019-04-14 13:47 | PN_ITS ---
Patient Problems: Active and Suspected Problems Shock (Acute) Beta jey toxicity (Acute) Overdose of beta-adrenergic antagonist drug (Acute) DONNY (acute kidney injury) (Acute) Subjective: Patient was mild short of breath in the morning probably because of fluid overload. About 2 L of urine output yesterday Patient had about 1700 mL positive fluid balance yesterday and total about 9 L since admission Vitals/I&O's: Vital Signs Temp Pulse Resp BP Pulse Ox 99.6 F H 73 18 136/73 H 94 04/14/19 09:43 04/14/19 09:43 04/14/19 09:43 04/14/19 09:43 04/14/19 09:43 Oxygen Flow Rate (L/min) 2 Oxygen Delivery Method Room Air Weight: 297 lb 13.512 oz Body Mass Index (BMI) 45.8 Intake and Output for Last 24 Hours 04/12/19 04/13/19 04/14/19 23:59 23:59 23:59 Intake Total 2564 / 2564 3851 / 3851 3646 / 3646 Output Total 650 / 650 2500 / 2500 1950 / 1950 Balance 1914 / 1914 1351 / 1351 1696 / 1696 General: Alert, Oriented x3, Cooperative HEENT: Atraumatic, PERRLA, EOMI, Normocephalic Neck: Supple, No JVD, Negative Carotid Bruits Lungs: Clear to auscultation, Normal air movement Cardiovascular: Regular rate, No murmurs Abdomen: Bowel Sounds Present, Soft, Non Tender Extremities: No edema, Capillary Refill Less than 3 Seconds Skin: No rashes, No breakdown Musculoskeletal: No Tenderness to Palpation of Joints or Extremities Neurological: Cranial nerves II-XII grossly intact Psych/Mental Status: Normal Affect, Appropriate Microbiology Past 72 Hours 04/11/19 11:39 Blood Culture (Wb) - Anticubital Right Blood Culture - Preliminary No growth in 48 hours. 04/11/19 11:30 Blood Culture (Wb) - Left Hand Blood Culture - Preliminary No growth in 48 hours. 04/11/19 13:40 Urine, Clean Catch Urine Culture - Final Culture exhibits no growth. Laboratory Results 04/14/19 08:30: WBC 6.4, RBC 3.86 L, Hgb 12.1 L, Hct 35.3 L, MCV 91.5, MCH 31.3, MCHC 34.3, RDW 13.8, RDW Differential 44.9 H, Plt Count 114 L, MPV 9.4, Immature Gran % (Auto) 0.200, Neut % (Auto) 74.4 H, Lymph % (Auto) 13.9 L, [place] % (Auto) 8.7, Eos % (Auto) 2.5, Baso % (Auto) 0.3, Absolute Neuts (auto) 4.8, Absolute Lymphs (auto) 0.89, Total Counted Not Reportable 04/14/19 08:30: Sodium 139, Potassium 4.1, Chloride 106, Carbon Dioxide 21.0, Anion Gap 12, BUN 34 H, Creatinine 3.81 H, Estim Creat Clear Calc 20.00, Est GFR (MDRD) Af Amer 21 L, Est GFR (MDRD) Non-Af 18 L, BUN/Creatinine Ratio 8.9 L, Glucose 102, Calcium 7.3 L Current Medications Acetaminophen (Tylenol) 650 mg PO Q6H PRN PRN PRN Reason: Mild Pain (1-3)/Temp > 100.7 F Last Admin: 04/13/19 11:06 Dose: 650 mg Albuterol Sulfate (Ventolin Aerosols) 2.5 mg INHALATION Q2H PRN PRN PRN Reason: SOB/Wheezing Chlordiazepoxide (Librium) 25 mg PO TID PRN PRN PRN Reason: AGITATION Heparin Sodium (Porcine) (Heparin Na) 5,000 unit SC Q12 [facility] Last Admin: 04/14/19 09:32 Dose: 5,000 unit Sodium Chloride () 250 mls @ 15 mls/hr IV .[id number] PRN PRN Reason: SALINE FLUSH Lorazepam (Ativan) 2 mg PO Q2H PRN PRN; Protocol PRN Reason: CIWA score > 8 but <15 Last Admin: 04/14/19 12:50 Dose: 2 mg Lorazepam (Ativan) 2 mg PO UD PRN; Protocol PRN Reason: CIWA score >/=15. Lorazepam (Ativan) 2 mg IV Q2H PRN PRN; Protocol PRN Reason: CIWA score > 8 but <15 Lorazepam (Ativan) 2 mg IV UD PRN; Protocol PRN Reason: CIWA score >/=15. Magnesium Hydroxide (Milk Of Magnesia) 30 ml PO DAILY PRN PRN PRN Reason: Constipation Last Admin: 04/11/19 16:34 Dose: 30 ml Ondansetron HCl (Zofran) 4 mg IV Q8H PRN PRN PRN Reason: NAUSEA/VOMITING Last Admin: 04/11/19 16:34 Dose: 4 mg Phenol/Menthol (Chloraseptic (Bkc)) 3 spray MM Q2H PRN PRN PRN Reason: SORE THROAT Psyllium Hydrophilic Mucilloid (Metamucil) 1 packet PO DAILY PRN PRN PRN Reason: Constipation Sodium Chloride () 5 - 15 ml IV UD PRN PRN Reason: SALINE FLUSH Last Admin: 04/11/19 21:48 Dose: 10 ml Medical Necessity - Tobacco Use Smoking Status: Former smoker Tobacco Use: Non-smoker Assessment/Plan All Active Problems Shortness of breath (Acute) Venous stasis dermatitis (Acute) Shock (Acute) Beta jey toxicity (Acute) Overdose of beta-adrenergic antagonist drug (Acute) DONNY (acute kidney injury) (Acute) Elevated blood pressure (Acute) Hyponatremia (Acute) Chest pain (Acute) This is 53 year old M with past medical history of morbid obesity, chronic venous dermatitis, chronic alcoholic use disorder was admitted with feeling sweaty with burning chest pain. Patient was bradycardic. History of drug overdose possible carvedilol and lisinopril, and admitted with acute kidney injury with hyperkalemia and hypotension in ICU 1. Hypotension, secondary to carvedilol and lisinopril overdose: Patient currently more awake and alert. He had glucagon in the ER. Currently hemodynamically stable. Discussed with the cyber ops planner. Blood pressure is better, systolic about 110. Patient was transferred to PCU on 04/12 2019. Blood pressure is stable. Blood cultures x2 are negative for more than 48 hours. Urine culture negative. 2. Acute kidney injury, pre-renal or possible ATN: Patient urine output 350 mL. BUN/creatinine 17/2.5- 33/3.86 -36/4.05. Wedding Planner is been consulted. Renal ultrasound 4.6 cm cortical cyst at the mid to lower pole of the right kidney, otherwise normal ultrasound of the kidneys. Patient is in diuresis phase of acute kidney injury. About 2 L of urine output on 04/13. Patient has mild short of breath in the morning today. Lasix 40 mg IV 1 dose ordered. Creatinine is improved to 3.8 Patient had about 1700 mL positive fluid balance yesterday and total about 9 L since admission. Patient seen by supplier relationship director. 3. Hyperkalemia secondary to Lisinopril overdose, no EKG changes: K was 6.6 on 04/11. Patient received Kayexalate. No significant EKG changes of hypokalemia. Repeat potassium is stable. Anion gap 9. 4. Elevated lactic acid likely secondary to #1,: Resolved. 5. Suicidal attempt: Mental health crisis team. Patient is hemodynamically stable for mental health follow-up. Will need most probably inpatient psych facility evaluation and management. 6. Hyponatremia, secondary to DONNY improving. 7. Chest pain, atypical likely secondary to shock. EKG shows no acute ST-T changes, troponins negative. 8. Elevated transaminases probably from nonalcoholic steatohepatitis: ALT and AST are elevated. Total bili normal alkaline phosphatase 92. DVT PPx- Heparin SC Discharge plan: Patient is recommended to be transferred to inpatient psych facility by mental health crisis team. Probably 1 or 2 days Microbiology Past 72 Hours 04/11/19 11:39 Blood Culture (Wb) - Anticubital Right Blood Culture - Preliminary No growth in 48 hours. 04/11/19 11:30 Blood Culture (Wb) - Left Hand Blood Culture - Preliminary No growth in 48 hours. 04/11/19 13:40 Urine, Clean Catch Urine Culture - Final Culture exhibits no growth. Laboratory Results 04/14/19 08:30: WBC 6.4, RBC 3.86 L, Hgb 12.1 L, Hct 35.3 L, MCV 91.5, MCH 31.3, MCHC 34.3, RDW 13.8, RDW Differential 44.9 H, Plt Count 114 L, MPV 9.4, Immature Gran % (Auto) 0.200, Neut % (Auto) 74.4 H, Lymph % (Auto) 13.9 L, [place] % (Auto) 8.7, Eos % (Auto) 2.5, Baso % (Auto) 0.3, Absolute Neuts (auto) 4.8, Absolute Lymphs (auto) 0.89, Total Counted Not Reportable 04/14/19 08:30: Sodium 139, Potassium 4.1, Chloride 106, Carbon Dioxide 21.0, Anion Gap 12, BUN 34 H, Creatinine 3.81 H, Estim Creat Clear Calc 20.00, Est GFR (MDRD) Af Amer 21 L, Est GFR (MDRD) Non-Af 18 L, BUN/Creatinine Ratio 8.9 L, Glucose 102, Calcium 7.3 L Clinical Impression(s) from Imaging Studies Chest X-Ray 04/11/19 11:19 IMPRESSION: Mild cardiomegaly. Mild degree of vascular congestion. Abdomen CTA 04/11/19 12:34 IMPRESSION: Hepatomegaly and fatty infiltration of the liver. Minimal amount of free fluid along the inferior medial aspect of the liver. Small amount of pericholecystic fluid. Right renal cyst. Chest CTA 04/11/19 12:34 IMPRESSION: Linear atelectasis and/or scarring at the lung bases. Fatty infiltration of the liver. Gallbladder Ultrasound 04/11/19 13:41 IMPRESSION: Hepatomegaly. Fatty attrition of the liver. Thickened gallbladder wall. Small amount of pericholecystic fluid. Renal Ultrasound 04/12/19 05:55 IMPRESSION: 1. 4.6 cm cortical cyst at the mid to lower pole of the right kidney, otherwise normal ultrasound of the kidneys. 2. The urinary bladder is collapsed around a Chung catheter.. Code Visit Inpatient E&M: 08509 Subs Hosp L3
--- NOTE | 2019-04-14 13:59 | NURSING ---
Today's labs and progress notes faxed to [facility].
[2019-04-14] MEDS: Furosemide 40 MG/4 ML Vial IV (14:24)
--- NOTE | 2019-04-14 17:32 | PCM.PN.REN ---
Patient Problems: Active and Suspected Problems Shock (Acute) Beta jey toxicity (Acute) Overdose of beta-adrenergic antagonist drug (Acute) DONNY (acute kidney injury) (Acute) Subjective: Pt is doing well. Had SOB this morning and was given IV lasix Pt said he is making urine No urinary obstructive symptoms No CP No nausea No vomiting - Physical Exam General: Alert, Oriented x3 HEENT: Atraumatic, PERRLA Oral: Moist Mucosa Neck: Supple, No JVD Lungs: Clear to auscultation, Normal air movement, Diminished Cardiovascular: Regular rate, Regular Rhythm, Normal S1, Normal S2 Abdomen: Bowel Sounds Present, Soft, Distended Extremities: Edema - +3 edema of LE Lymphatic: No Cervical, Supraclavicular, or Inguinal Adenopathy Neurological: Cranial nerves II-XII grossly intact, Neuro grossly intact Psych/Mental Status: Appropriate Vital Signs Temp Pulse Resp BP Pulse Ox 98.5 F 78 16 138/75 H 96 04/14/19 15:34 04/14/19 15:34 04/14/19 15:34 04/14/19 15:34 04/14/19 15:34 Oxygen Flow Rate (L/min) 2 Oxygen Delivery Method Room Air Weight: 135.1 kg Body Mass Index (BMI) 45.8 Intake and Output for Last 24 Hours 04/12/19 04/13/19 04/14/19 23:59 23:59 23:59 Intake Total 2564 / 2564 3851 / 3851 3646 / 3646 Output Total 650 / 650 2500 / 2500 1950 / 1950 Balance 1914 / 1914 1351 / 1351 1696 / 1696 Microbiology Past 72 Hours 04/11/19 11:39 Blood Culture - Preliminary Blood Culture (Wb) - Anticubital Right No growth in 48 hours. 04/11/19 11:30 Blood Culture - Preliminary Blood Culture (Wb) - Left Hand No growth in 48 hours. 04/11/19 13:40 Urine Culture - Final Urine, Clean Catch Culture exhibits no growth. Laboratory Tests Past 24 Hrs 04/14/19 04/14/19 08:30 08:30 WBC 6.4 RBC 3.86 L Hgb 12.1 L Hct 35.3 L MCV 91.5 MCH 31.3 MCHC 34.3 RDW 13.8 RDW Differential 44.9 H Plt Count 114 L MPV 9.4 Immature Gran % (Auto) 0.200 Neut % (Auto) 74.4 H Lymph % (Auto) 13.9 L [place] % (Auto) 8.7 Eos % (Auto) 2.5 Baso % (Auto) 0.3 Absolute Neuts (auto) 4.8 Absolute Lymphs (auto) 0.89 Total Counted Not Reportable Sodium 139 Potassium 4.1 Chloride 106 Carbon Dioxide 21.0 Anion Gap 12 BUN 34 H Creatinine 3.81 H Estim Creat Clear Calc 20.00 Est GFR (MDRD) Af Amer 21 L Est GFR (MDRD) Non-Af 18 L BUN/Creatinine Ratio 8.9 L Glucose 102 Calcium 7.3 L Medical Necessity - Tobacco Use Smoking Status: Former smoker Tobacco Use: Non-smoker Assessment/Plan All Active Problems Shortness of breath (Acute) Venous stasis dermatitis (Acute) Shock (Acute) Beta jey toxicity (Acute) Overdose of beta-adrenergic antagonist drug (Acute) DONNY (acute kidney injury) (Acute) Elevated blood pressure (Acute) Hyponatremia (Acute) Chest pain (Acute) Acute renal failure . Cr 0.94 mg/dL on February 2019 DONNY is most probably from low BP, high dose of ACEI ,and IV contrast exposure leading to ATN Last 24 hours Cr trend 4.0->3.8 mg/dL Non oliguric I agree with lasix for volume management No need for HD Keep MAP >65 Avoid ACEI/ARB Check renal function in am Hyperkalemia. from DONNY and high dose of ACEI Resolved with kayexalate Leg edema :Echo from February 2019 showed normal RV and EF Ok to use lasix IV Suicidal attempt. needs psychiatric eval Renal team will continue to follow Makayla Hamilton MD
[2019-04-15] VITALS (12 sets, daily range): BP systolic 139–170; BP diastolic 70–90; PULSE 60–86; RESP 16–17; TEMP 36.6–37.2; O2SAT 94–98
[2019-04-15 06:46] LABS: Absolute Lymphocyte Count 0.95 X10^3/ul (0.83-4.51); Absolute Neutrophil Count 4.5 X10^3/uL (2.0-7.7); Basophil# 0.03 X10^3/uL; Basophil% 0.5 % (0-1); Eosinophil# 0.26 X10^3/uL; Eosinophils% 4.1 % (0-5); Hematocrit 35.7 % (40-54); Hemoglobin 11.9 g/dl (13.0-16.5); Lymphocyte # 0.95 X10^3/ul (4.0); Lymphocyte % 15.2 % (19-41); Mean Corp Hgb Conc 33.3 g/gl (32-36); Mean Corpuscular Hgb 30.7 pg (27.0-32.0); Mean Platelet Vol. 9.5 fl (6.2-12.0); Monocyte# 0.56 X10^3/uL; Monocyte% 8.9 % (0-10); Neutrophil # 4.46 X10^3/uL (2.7-7.7); Neutrophil % 71.1 % (47-70); Platelet Count 119 K/mm3 (150-450); RBC Distribution Width SD 46.9 fl (35.1-43.9); Red Blood Count 3.88 M/mm3 (4.6-6.2); White Blood Count 6.3 K/mm3 (4.4-11.0)
[2019-04-15 06:57] LABS: POSITIVE COUNT NO; POSITIVE DIFFERENTIAL NO; POSITIVE MORPHOLOGY NO
[2019-04-15 07:00] LABS: Anion Gap 13 (5-15); BUN 33 mg/dL (7-18); BUN/Creat Ratio 9.5 RATIO (10-20); Calcium,Total 7.8 mg/dL (8.5-10.1); Chloride 109 mmol/L (98-107); Creatinine, Serum 3.49 mg/dL (0.70-1.30); EST Glomerular Filtration Rate 20 mL/min (>60); Est Glom Filt Rate - Afr Amer 24 mL/min (>60); Estimated Creatinine Clearance 21.84 ml/min; Glucose 101 mg/dL (74-106); Potassium 4.3 mmol/L (3.5-5.1); Sodium Level 145 mmol/L (136-145)
[2019-04-15] MEDS: Heparin Injection (Vial) 5,000 UNIT/ML VIAL 5000 UNIT SC ×2 (10:11→21:23)
--- NOTE | 2019-04-15 11:53 | PCM.PN.REN ---
Patient Problems: Active and Suspected Problems Shock (Acute) Beta jey toxicity (Acute) Overdose of beta-adrenergic antagonist drug (Acute) DONNY (acute kidney injury) (Acute) Subjective: no new complaints - Physical Exam General: Alert, Oriented x3, Cooperative HEENT: Atraumatic, PERRLA, EOMI, Normocephalic Neck: Supple, No JVD, Negative Carotid Bruits Lungs: Clear to auscultation, Normal air movement Cardiovascular: Regular rate, No murmurs Abdomen: Bowel Sounds Present, Soft, Non Tender Extremities: No edema, Capillary Refill Less than 3 Seconds Skin: No rashes, No breakdown Musculoskeletal: No Tenderness to Palpation of Joints or Extremities Neurological: Cranial nerves II-XII grossly intact Psych/Mental Status: Normal Affect, Appropriate Vital Signs Temp Pulse Resp BP Pulse Ox 98.2 F 86 16 159/83 H 97 04/15/19 08:00 04/15/19 08:00 04/15/19 08:00 04/15/19 08:00 04/15/19 08:00 Oxygen Flow Rate (L/min) 2 Oxygen Delivery Method Room Air Weight: 135.1 kg Body Mass Index (BMI) 45.8 Intake and Output for Last 24 Hours 04/13/19 04/14/19 04/15/19 23:59 23:59 23:59 Intake Total 3851 / 3851 4846 / 4846 120 / 120 Output Total 2500 / 2500 6325 / 6325 600 / 600 Balance 1351 / 1351 -1479 / -1479 -480 / -480 Microbiology Past 72 Hours 04/11/19 11:39 Blood Culture - Preliminary Blood Culture (Wb) - Anticubital Right No growth in 48 hours. 04/11/19 11:30 Blood Culture - Preliminary Blood Culture (Wb) - Left Hand No growth in 48 hours. 04/11/19 13:40 Urine Culture - Final Urine, Clean Catch Culture exhibits no growth. Laboratory Tests Past 24 Hrs 04/15/19 04/15/19 06:10 06:10 WBC 6.3 RBC 3.88 L Hgb 11.9 L Hct 35.7 L MCV 92.0 MCH 30.7 MCHC 33.3 RDW 14.0 RDW Differential 46.9 H Plt Count 119 L MPV 9.5 Immature Gran % (Auto) 0.200 Neut % (Auto) 71.1 H Lymph % (Auto) 15.2 L [place] % (Auto) 8.9 Eos % (Auto) 4.1 Baso % (Auto) 0.5 Absolute Neuts (auto) 4.5 Absolute Lymphs (auto) 0.95 Total Counted Not Reportable Sodium 145 Potassium 4.3 Chloride 109 H Carbon Dioxide 23.0 Anion Gap 13 BUN 33 H Creatinine 3.49 H Estim Creat Clear Calc 21.84 Est GFR (MDRD) Af Amer 24 L Est GFR (MDRD) Non-Af 20 L BUN/Creatinine Ratio 9.5 L Glucose 101 Calcium 7.8 L Medical Necessity - Tobacco Use Smoking Status: Former smoker Tobacco Use: Non-smoker Assessment/Plan All Active Problems Shortness of breath (Acute) Venous stasis dermatitis (Acute) Shock (Acute) Beta jey toxicity (Acute) Overdose of beta-adrenergic antagonist drug (Acute) DONNY (acute kidney injury) (Acute) Elevated blood pressure (Acute) Hyponatremia (Acute) Chest pain (Acute) Acute renal failure. Normal baseline creatinine. CT of the abdomen does not show any hydronephrosis. Blood pressure is better. UA is benign. Creatinine is trending down. Bp is ok. add lasix 40 mg once daily for now. can increase as tolerated. Hyperkalemia. Due to acute renal failure, DANYELLE inhibitor. resolved
--- NOTE | 2019-04-15 13:12 | PCM.PROGNOTE ---
<Kevin Orellana - Last Filed: 04/15/19 13:12> Patient Problems: Active and Suspected Problems Shock (Acute) Beta jey toxicity (Acute) Overdose of beta-adrenergic antagonist drug (Acute) DONNY (acute kidney injury) (Acute) Subjective: Pt reports improvement in his breathing. No improvement in his LE edema. No CP. No dizziness/LH/SELLERS. He is resting comfortably in chair at bedside. He is reluctant to be placed for psychiatric eval. - Physical Exam General: Alert, Oriented x3, Cooperative HEENT: Atraumatic, PERRLA, EOMI, Normocephalic Neck: Supple, No JVD, Negative Carotid Bruits Lungs: Normal air movement, Rales - faint left basilar crackles Cardiovascular: Regular rate, No murmurs Abdomen: Bowel Sounds Present, Soft, Non Tender Extremities: No edema, Capillary Refill Less than 3 Seconds, Edema - 3+ pitting edema to knees BL Skin: No rashes, No breakdown Musculoskeletal: No Tenderness to Palpation of Joints or Extremities Neurological: Cranial nerves II-XII grossly intact Psych/Mental Status: Depressed, Alert and oriented to time, place, person, mood and affect Vital Signs Temp Pulse Resp BP Pulse Ox 98.2 F 86 16 159/83 H 97 04/15/19 08:00 04/15/19 08:00 04/15/19 08:00 04/15/19 08:00 04/15/19 08:00 Oxygen Flow Rate (L/min) 2 Oxygen Delivery Method Room Air Weight: 297 lb 13.512 oz Body Mass Index (BMI) 45.8 Intake and Output for Last 24 Hours 04/13/19 04/14/19 04/15/19 23:59 23:59 23:59 Intake Total 3851 / 3851 4846 / 4846 120 / 120 Output Total 2500 / 2500 6325 / 6325 600 / 600 Balance 1351 / 1351 -1479 / -1479 -480 / -480 Microbiology Past 72 Hours 04/11/19 11:39 Blood Culture - Preliminary Blood Culture (Wb) - Anticubital Right No growth in 48 hours. 04/11/19 11:30 Blood Culture - Preliminary Blood Culture (Wb) - Left Hand No growth in 48 hours. 04/11/19 13:40 Urine Culture - Final Urine, Clean Catch Culture exhibits no growth. Laboratory Tests Past 24 Hrs 04/15/19 04/15/19 06:10 06:10 WBC 6.3 RBC 3.88 L Hgb 11.9 L Hct 35.7 L MCV 92.0 MCH 30.7 MCHC 33.3 RDW 14.0 RDW Differential 46.9 H Plt Count 119 L MPV 9.5 Immature Gran % (Auto) 0.200 Neut % (Auto) 71.1 H Lymph % (Auto) 15.2 L [place] % (Auto) 8.9 Eos % (Auto) 4.1 Baso % (Auto) 0.5 Absolute Neuts (auto) 4.5 Absolute Lymphs (auto) 0.95 Total Counted Not Reportable Sodium 145 Potassium 4.3 Chloride 109 H Carbon Dioxide 23.0 Anion Gap 13 BUN 33 H Creatinine 3.49 H Estim Creat Clear Calc 21.84 Est GFR (MDRD) Af Amer 24 L Est GFR (MDRD) Non-Af 20 L BUN/Creatinine Ratio 9.5 L Glucose 101 Calcium 7.8 L Medical Necessity - Tobacco Use Smoking Status: Former smoker Tobacco Use: Non-smoker Assessment/Plan All Active Problems Shortness of breath (Acute) Venous stasis dermatitis (Acute) Shock (Acute) Beta jey toxicity (Acute) Overdose of beta-adrenergic antagonist drug (Acute) DONNY (acute kidney injury) (Acute) Elevated blood pressure (Acute) Hyponatremia (Acute) Chest pain (Acute) 1. Suicide attempt with htn meds - (coreg/lisinopril) BP/Tele stable. Crisis following. Pt to go to inpatient psych 2. DONNY 2/2 above - continues to improve with the addition of lasix 3. Acute diastolic CHF exacerbation - breathing improved. Legs very edematous. Add DANYELLE wraps. Continue lasix. 4. Mild normocytic anemia - stbale 5. Alcoholism - on librium/ativan. Somewhat abnormal LFTs. Withdrawal seems well controlled. 6. Morbid obesity - dietary eval. 7. Major depression - as per #1 DVT ppx: heparin DC planning: inpatient psych This patient was seen by Kevin Orellana PA-C under the supervision of Dr. Oliva <Graeme Oliva - Last Filed: 04/15/19 14:35> - Physical Exam Vital Signs Temp Pulse Resp BP Pulse Ox 98.2 F 81 16 158/88 H 96 04/15/19 13:54 04/15/19 13:54 04/15/19 13:54 04/15/19 13:54 04/15/19 13:54 Oxygen Flow Rate (L/min) 2 Oxygen Delivery Method Room Air Weight: 135.1 kg Body Mass Index (BMI) 45.8 Intake and Output for Last 24 Hours 04/13/19 04/14/19 04/15/19 23:59 23:59 23:59 Intake Total 3851 / 3851 4846 / 4846 360 / 360 Output Total 2500 / 2500 6325 / 6325 1400 / 1400 Balance 1351 / 1351 -1479 / -1479 -1040 / -1040 Microbiology Past 72 Hours 04/11/19 11:39 Blood Culture - Preliminary Blood Culture (Wb) - Anticubital Right No growth in 48 hours. 04/11/19 11:30 Blood Culture - Preliminary Blood Culture (Wb) - Left Hand No growth in 48 hours. 04/11/19 13:40 Urine Culture - Final Urine, Clean Catch Culture exhibits no growth. Laboratory Tests Past 24 Hrs 04/15/19 04/15/19 04/15/19 06:10 06:10 06:10 WBC 6.3 RBC 3.88 L Hgb 11.9 L Hct 35.7 L MCV 92.0 MCH 30.7 MCHC 33.3 RDW 14.0 RDW Differential 46.9 H Plt Count 119 L MPV 9.5 Immature Gran % (Auto) 0.200 Neut % (Auto) 71.1 H Lymph % (Auto) 15.2 L [place] % (Auto) 8.9 Eos % (Auto) 4.1 Baso % (Auto) 0.5 Absolute Neuts (auto) 4.5 Absolute Lymphs (auto) 0.95 Total Counted Not Reportable Sodium 145 Potassium 4.3 Chloride 109 H Carbon Dioxide 23.0 Anion Gap 13 BUN 33 H Creatinine 3.49 H Estim Creat Clear Calc 21.84 Est GFR (MDRD) Af Amer 24 L Est GFR (MDRD) Non-Af 20 L BUN/Creatinine Ratio 9.5 L Glucose 101 Calcium 7.8 L Magnesium Pending Assessment/Plan This patient was seen in conjunction with Kevin Orellana PA-C . I have independently interviewed and examined the patient and reviewed pertinent historical, laboratory, and other data. Please refer to Kevin Orellana PA-C note for details of this patient's presentation, findings, and recommendations. I have reviewed Kevin Orellana PA-C note and concur with documented findings. In brief, patient is a 53-year-old M with multiple comorbidities including chronic diastolic congestive heart failure major depression admitted following apparent suicide obtained. Hospital course complicated by development of acute kidney injury as well as acute congestive heart failure Physical Examination: GENERAL: cooperative HEENT: Atraumatic; moist oral mucosa EYES; Anicteric, Normal Conjunctiva NECK; supple, normal thyroid, no distended JVD. RESPIRATORY: Diminished to auscultation bilaterally, CARDIOVASCULAR: Regular S1 S2, NEURO: Awake; no lateralizing signs. SKIN: No Rash PSYCH; significantly flat affect Assessment: 1. Severe depression with suicidal attempt 2. Acute kidney injury 3. Acute congestive heart failure with preserved ejection fraction 4. Essential hypertension 5. Chronic alcohol dependence 6. Morbid obesity with BMI of 48.1 7. DVT prophylaxis SC heparin Recommendations: 1. I have discussed the results of my overview and impressions with the patient 2. Options for management were reviewed Code Visit Inpatient E&M: 57130 Subs Hosp L2
--- NOTE | 2019-04-15 14:29 | EKG12_ITS ---
Test Reason : RHYTHM Blood Pressure : / mmHG Vent. Rate : 081 BPM Atrial Rate : 081 BPM P-R Int : 146 ms QRS Dur : 080 ms QT Int : 406 ms P-R-T Axes : 056 019 055 degrees QTc Int : 471 ms Normal sinus rhythm Normal ECG Confirmed by JA CARRIZALES, OSCAR ([id number]), commissioning editor NEREYDA AGUERO ([id number] on 04/19/2019 7:05:48 AM Referred By: LISA Confirmed By:OSCAR PERES MD
[2019-04-15 15:22] LABS: Magnesium 2.2 mg/dL (1.6-2.6)
[2019-04-15] MEDS: Carvedilol 3.125 MG TABLET PO ×2 (15:32→21:23)
[2019-04-15] MEDS: Acetaminophen 325 MG Tablet 650 MG PO (21:23)
[2019-04-16] VITALS (14 sets, daily range): BP systolic 150–170; BP diastolic 81–92; PULSE 60–81; RESP 16–19; TEMP 36.1–37.1; O2SAT 95–98
[2019-04-16] MEDS: Carvedilol 3.125 MG TABLET PO ×2 (09:24→21:15)
[2019-04-16] MEDS: Furosemide 40 MG Tablet PO (09:24)
[2019-04-16] MEDS: Heparin Injection (Vial) 5,000 UNIT/ML VIAL 5000 UNIT SC ×2 (09:24→21:15)
[2019-04-16] MEDS: hydrALAZINE 10 MG Tablet PO ×3 (10:48→21:15)
--- NOTE | 2019-04-16 11:04 | PCM.DC ---
- Discharge Diagnoses Current Active Problems: Current Active and Chronic Problems Shock (Acute) Hypertension (Chronic) Beta jey toxicity (Acute) Overdose of beta-adrenergic antagonist drug (Acute) DONNY (acute kidney injury) (Acute) You will use the following diet at home:: Cardiac Your food should be the consistency of: Regular Your liquids should be the consistency of: Regular/Thin Discharge Activity: Return to Normal Activity Allergies/Adverse Reactions: Allergies No Known Allergies Allergy (Verified 04/11/19 11:12) Medications to take at Discharge Carvedilol [Coreg] 3.125 mg PO BID #60 tablet 02/14/19 Acetaminophen [Tylenol Tablet] 650 mg PO Q6H PRN PRN tablet 04/16/19 Furosemide [Lasix] 40 mg PO DAILY #30 tablet 04/16/19 hydrALAZINE [Apresoline] 10 mg PO TID #90 tablet 04/16/19 The following prescriptions were given: Furosemide [Lasix] 40 mg PO DAILY #30 tablet hydrALAZINE [Apresoline] 10 mg PO TID #90 tablet Primary Care Physician: Care Physician,No Primary [Primary Care Provider] - Please follow up with your Primary Care Physician in: 1-2 weeks Test Results: Test results from this visit will be discussed in further detail at your follow-up appointment, if applicable. Please Follow Up With: Lee Mcleod MD When: 3-4 weeks Proposed Discharge Date: 04/16/19
--- NOTE | 2019-04-16 11:10 | DCINST_ITS ---
- Discharge Diagnoses Current Active Problems: Current Active and Chronic Problems Shock (Acute) Hypertension (Chronic) Beta jey toxicity (Acute) Overdose of beta-adrenergic antagonist drug (Acute) DONNY (acute kidney injury) (Acute) You will use the following diet at home:: Cardiac Your food should be the consistency of: Regular Your liquids should be the consistency of: Regular/Thin Discharge Activity: Return to Normal Activity Allergies/Adverse Reactions: Allergies No Known Allergies Allergy (Verified 04/11/19 11:12) Medications to take at Discharge Carvedilol [Coreg] 3.125 mg PO BID #60 tablet 02/14/19 Acetaminophen [Tylenol Tablet] 650 mg PO Q6H PRN PRN tablet 04/16/19 Furosemide [Lasix] 40 mg PO DAILY #30 tablet 04/16/19 hydrALAZINE [Apresoline] 10 mg PO TID #90 tablet 04/16/19 The following prescriptions were given: Furosemide [Lasix] 40 mg PO DAILY #30 tablet hydrALAZINE [Apresoline] 10 mg PO TID #90 tablet Primary Care Physician: Care Physician,No Primary [Primary Care Provider] - Please follow up with your Primary Care Physician in: 1-2 weeks Test Results: Test results from this visit will be discussed in further detail at your follow- up appointment, if applicable. Please Follow Up With: Lee Mcleod MD When: 3-4 weeks Proposed Discharge Date: 04/16/19
--- NOTE | 2019-04-16 11:21 | PHA.DC.MR ---
Pharmacy Service has performed discharge medication reconciliation for this patient upon transfer to psychiatric facility. The patient's discharge medication list was reviewed for discrepancies and discrepancies were resolved. Home Medications Acetaminophen [Tylenol Tablet] 650 mg PO Q6H PRN PRN tablet 04/16/19 Carvedilol [Coreg] 3.125 mg PO BID 60 Days #60 tab 04/16/19 Furosemide [Lasix] 40 mg PO DAILY #30 tab 04/16/19 hydrALAZINE [Apresoline] 10 mg PO TID #90 tab 04/16/19
--- NOTE | 2019-04-16 12:00 | PCM.PN.REN ---
Patient Problems: Active and Suspected Problems Shock (Acute) Beta jey toxicity (Acute) Overdose of beta-adrenergic antagonist drug (Acute) DONNY (acute kidney injury) (Acute) Subjective: No new complaints - Physical Exam General: Alert, Oriented x3, Cooperative HEENT: Atraumatic, PERRLA, EOMI, Normocephalic Neck: Supple, No JVD, Negative Carotid Bruits Lungs: Clear to auscultation, Normal air movement Cardiovascular: Regular rate, No murmurs Abdomen: Bowel Sounds Present, Soft, Non Tender Extremities: No edema, Capillary Refill Less than 3 Seconds Skin: No rashes, No breakdown Musculoskeletal: No Tenderness to Palpation of Joints or Extremities Neurological: Cranial nerves II-XII grossly intact Psych/Mental Status: Normal Affect, Appropriate Vital Signs Temp Pulse Resp BP Pulse Ox 98.5 F 80 18 159/84 H 98 04/16/19 09:30 04/16/19 10:48 04/16/19 09:30 04/16/19 10:48 04/16/19 09:30 Oxygen Flow Rate (L/min) 2 Oxygen Delivery Method Room Air Weight: 129.6 kg Body Mass Index (BMI) 45.8 Intake and Output for Last 24 Hours 04/14/19 04/15/19 04/16/19 23:59 23:59 23:59 Intake Total 4846 / 4846 1260 / 1260 930 / 930 Output Total 6325 / 6325 3500 / 3500 975 / 975 Balance -1479 / -1479 -2240 / -2240 -45 / -45 Microbiology Past 72 Hours 04/11/19 11:39 Blood Culture - Preliminary Blood Culture (Wb) - Anticubital Right No growth in 48 hours. 04/11/19 11:30 Blood Culture - Preliminary Blood Culture (Wb) - Left Hand No growth in 48 hours. Laboratory Tests Past 24 Hrs 04/15/19 06:10 Magnesium 2.2 Medical Necessity - Tobacco Use Smoking Status: Former smoker Tobacco Use: Non-smoker Assessment/Plan All Active Problems Shortness of breath (Acute) Venous stasis dermatitis (Acute) Shock (Acute) Beta jey toxicity (Acute) Overdose of beta-adrenergic antagonist drug (Acute) DONNY (acute kidney injury) (Acute) Elevated blood pressure (Acute) Hyponatremia (Acute) Chest pain (Acute) Acute renal failure. Normal baseline creatinine. CT of the abdomen does not show any hydronephrosis. Blood pressure is better. UA is benign. Creatinine is trending down. Bp is ok. add lasix 40 mg once daily for now. can increase as tolerated. Hyperkalemia. Due to acute renal failure, DANYELLE inhibitor. resolved
[2019-04-16] MEDS: Psyllium 1 PACKET PO (13:58)
--- NOTE | 2019-04-16 14:40 | PCM.DC.SUM ---
<Kevin Orellana - Last Filed: 04/16/19 14:40> Discharge Date and Diagnosis - Problem List Patient Problems: Active and Suspected Problems Shock (Acute) Beta jey toxicity (Acute) Overdose of beta-adrenergic antagonist drug (Acute) DONNY (acute kidney injury) (Acute) Date of Admission: 04/11/19 Date of Discharge: 04/16/19 - Primary Discharge Diagnosis Active and Suspected Problems Shock (Acute) 2/2 intentional drug overdose Beta jey toxicity (Acute) Suicide attempt DONNY (acute kidney injury) (Acute) Acute diastolic CHF exacerbation Mild normocytic anemia Alcoholism Morbid obesity Major Depression - Secondary Discharge Diagnosis Chronic Problems Hypertension (Chronic) Alcohol abuse (Chronic) Hospital Course and Treatment Imaging Results: RAD/Chest 1 View (Portable) IMPRESSION: Mild cardiomegaly. Mild degree of vascular congestion. CT/CTA Abdomen W/WO Contrast IMPRESSION: Hepatomegaly and fatty infiltration of the liver. Minimal amount of free fluid along the inferior medial aspect of the liver. Small amount of pericholecystic fluid. Right renal cyst. CT/CTA Chest W/WO Contrast IMPRESSION: Linear atelectasis and/or scarring at the lung bases. Fatty infiltration of the liver. US/Kidney and Bladder IMPRESSION: 1. 4.6 cm cortical cyst at the mid to lower pole of the right kidney, otherwise normal ultrasound of the kidneys. 2. The urinary bladder is collapsed around a Chung catheter.. US/Gallbladder IMPRESSION: Hepatomegaly. Fatty attrition of the liver. Thickened gallbladder wall. Small amount of pericholecystic fluid. Consultations 04/13/19 11:24 Consult: Mental Health/Crisis Routine Reason for consult?: intentional overdose Date Notified:: 04/13/19 Time notified:: 11:24 Ale - nephrology Brown / Zhou - Supervisor [employer] Operations: None Summary of Care Provided: Hospital course: The patient is a 53 year old M with pmhx of depression, morbid obesity, alcoholism, who presented to the ER with chest pain, hypotension, with sweats and burning chest pain, and dizziness. He is an alcoholic and was drinking about 1 pint of alcohol daily. He admitted that he had intentionally taken all of his lisinopril and coreg in a suicide attempt the night prior, while drinking. He was admitted to the ICU as he was hypotensive to 69/45 and bradycardic with hyperkalemia. He appeared to have DONNY as well, and was given aggressive IV fluids. He was started on the alcohol withdrawal protocol with ativan and librium. Renal function worsened and he was seen by Nephrology. CT abdomen was unremarkable showing fatty liver small amount of fluid and right renal cyst. The renal ultrasound was unremarkable showing a 4.6cm renal cyst. Gallbladder showed hepatomegaly, fatty liver, thickened GB wall and small amount of pericholecystic fluid. He did not require dialysis. He did develop LE edema and SOB. Recent echo in January of this year demonstrated preserved ejection fraction. He was felt to have acute diastolic CHF 2/2 volume overload. He was started on lasix. He renal function improved with lasix. His coreg was resumed after a single episode of 19 beats v tach. No events after resumption. He was discharged to inpatient psych as this was a suicide attempt. He will need follow up with his PCP in 1-2 weeks, neprhology 1-2 weeks, and cardiology in 2 weeks. This patient was seen by Kevin Orellana PA-C under the supervision of Doctor Oliva. [] Patient Problems: Active and Suspected Problems Shock (Acute) Beta jey toxicity (Acute) Overdose of beta-adrenergic antagonist drug (Acute) DONNY (acute kidney injury) (Acute) - Physical Exam General: Alert, Oriented x3, Cooperative HEENT: Atraumatic, PERRLA, EOMI, Normocephalic Neck: Supple, No JVD, Negative Carotid Bruits Lungs: Clear to auscultation, Normal air movement Cardiovascular: Regular rate, No murmurs Abdomen: Bowel Sounds Present, Soft, Non Tender, Obese Extremities: Capillary Refill Less than 3 Seconds, Edema - improvement in LE edema. Skin: No rashes, No breakdown Musculoskeletal: No Tenderness to Palpation of Joints or Extremities Neurological: Cranial nerves II-XII grossly intact Psych/Mental Status: Depressed, Alert and oriented to time, place, person, mood and affect Vital Signs Temp Pulse Resp BP Pulse Ox 97.0 F L 79 18 158/86 H 98 04/16/19 12:00 04/16/19 13:57 04/16/19 12:00 04/16/19 13:57 04/16/19 12:00 Oxygen Flow Rate (L/min) 2 Oxygen Delivery Method Room Air Weight: 285 lb 11.505 oz Body Mass Index (BMI) 45.8 Intake and Output for Last 24 Hours 04/14/19 04/15/19 04/16/19 23:59 23:59 23:59 Intake Total 4846 / 4846 1260 / 1260 930 / 930 Output Total 6325 / 6325 3500 / 3500 975 / 975 Balance -1479 / -1479 -2240 / -2240 -45 / -45 Microbiology Past 72 Hours 04/11/19 11:39 Blood Culture - Final Blood Culture (Wb) - Anticubital Right No growth in 5 days. 04/11/19 11:30 Blood Culture - Final Blood Culture (Wb) - Left Hand No growth in 5 days. Laboratory Tests Past 24 Hrs 04/15/19 06:10 Magnesium 2.2 Discharge Diet: Low fat/ Low Cholesterol, 2000 mg Sodium Diet Discharge Activity: Return to Normal Activity Home Medications: Medications to take at Discharge Acetaminophen [Tylenol Tablet] 650 mg PO Q6H PRN PRN tablet 04/16/19 Carvedilol [Coreg] 3.125 mg PO BID 60 Days #60 tab 04/16/19 Furosemide [Lasix] 40 mg PO DAILY #30 tab 04/16/19 hydrALAZINE [Apresoline] 10 mg PO TID #90 tab 04/16/19 Following Prescrptions Were Given to Patient: Carvedilol [Coreg] 3.125 mg PO BID 60 Days #60 tab Furosemide [Lasix] 40 mg PO DAILY #30 tab hydrALAZINE [Apresoline] 10 mg PO TID #90 tab Primary Care Physician: Care Physician,No Primary [Primary Care Provider] - Please follow up with your Primary Care Physician in: 1-2 weeks Please Follow Up With: Lee Mcleod MD When: 3-4 weeks Disposition: Psych Hospital or Unit Minutes spent on discharge:: 40 Patient Condition:: Stable Medical Necessity - Tobacco Use Smoking Status: Former smoker Tobacco Use: Non-smoker Meaningful Use Info Meaningful Use Diagnoses (Choose all that apply): CHF - CHF DANYELLE/ARB ordered at discharge?: No Reason DANYELLE/ARB not ordered?: Worsening renal disease Documented LVEF (%): 65 <Graeme Oliva - Last Filed: 04/16/19 15:23> Discharge Date and Diagnosis - Primary Discharge Diagnosis Active and Suspected Problems Shock (Acute) Beta jey toxicity (Acute) Overdose of beta-adrenergic antagonist drug (Acute) DONNY (acute kidney injury) (Acute) - Secondary Discharge Diagnosis Chronic Problems Hypertension (Chronic) Alcohol abuse (Chronic) Hospital Course and Treatment Consultations 04/13/19 11:24 Consult: Mental Health/Crisis Routine Reason for consult?: intentional overdose Date Notified:: 04/13/19 Time notified:: 11:24 Summary of Care Provided: This patient was seen in conjunction with Kevin Orellana PA-C . I have independently interviewed and examined the patient and reviewed pertinent historical, laboratory, and other data. Please refer to Kevin Orellana PA-C note for details of this patient's presentation, findings, and recommendations. I have reviewed Kevin Orellana PA-C note and concur with documented findings. In brief, patient is a 53-year-old M with multiple comorbidities including chronic diastolic congestive heart failure major depression admitted following apparent suicide attempt. Hospital course complicated by development of acute kidney injury as well as acute congestive heart failure patient was transferred to an inpatient psych facility once medically stable for treatment of his severe depression with suicidal attempt Physical Examination: GENERAL: cooperative HEENT: Atraumatic; moist oral mucosa EYES; Anicteric, Normal Conjunctiva NECK; supple, normal thyroid, no distended JVD. RESPIRATORY: Diminished to auscultation bilaterally, CARDIOVASCULAR: Regular S1 S2, NEURO: Awake; no lateralizing signs. SKIN: No Rash PSYCH; significantly flat affect Assessment: 1. Severe depression with suicidal attempt 2. Acute kidney injury 3. Acute congestive heart failure with preserved ejection fraction 4. Essential hypertension 5. Chronic alcohol dependence 6. Morbid obesity with BMI of 48.1 7. DVT prophylaxis SC heparin Hospital course: As documented above - Physical Exam Vital Signs Temp Pulse Resp BP Pulse Ox 97.0 F L 75 18 158/86 H 98 04/16/19 12:00 04/16/19 15:00 04/16/19 12:00 04/16/19 13:57 04/16/19 12:00 Oxygen Flow Rate (L/min) 2 Oxygen Delivery Method Room Air Weight: 129.6 kg Body Mass Index (BMI) 45.8 Intake and Output for Last 24 Hours 04/14/19 04/15/19 04/16/19 23:59 23:59 23:59 Intake Total 4846 / 4846 1260 / 1260 1490 / 1490 Output Total 6325 / 6325 3500 / 3500 2625 / 2625 Balance -1479 / -1479 -2240 / -2240 -1135 / -1135 Microbiology Past 72 Hours 04/11/19 11:39 Blood Culture - Final Blood Culture (Wb) - Anticubital Right No growth in 5 days. 04/11/19 11:30 Blood Culture - Final Blood Culture (Wb) - Left Hand No growth in 5 days. Laboratory Tests Past 24 Hrs 04/15/19 06:10 Magnesium 2.2 Code Visit Inpatient E&M: [id number] Disch Hosp
--- NOTE | 2019-04-16 14:53 | DS.PCM_ITS ---
Addendum entered and electronically signed by Graeme Oliva MD 04/17/19 12:00: Code Visit Inpatient E&M: [id number] Disch Hosp Addendum entered and electronically signed by KYLE Rock 04/17/19 09:19: Code Visit This summary will serve for DC on 04/17/2019. Addendum entered and electronically signed by KYLE Rock 04/16/19 17:14: Code Visit Addendum: The patient is medically stable, and clear for discharge to the npatient psych unit. Original Note: <Kevin Orellana - Last Filed: 04/16/19 14:40> Discharge Date and Diagnosis - Problem List Patient Problems: Active and Suspected Problems Shock (Acute) Beta jey toxicity (Acute) Overdose of beta-adrenergic antagonist drug (Acute) DONNY (acute kidney injury) (Acute) Date of Admission: 04/11/19 Date of Discharge: 04/16/19 - Primary Discharge Diagnosis Active and Suspected Problems Shock (Acute) 2/2 intentional drug overdose Beta jey toxicity (Acute) Suicide attempt DONNY (acute kidney injury) (Acute) Acute diastolic CHF exacerbation Mild normocytic anemia Alcoholism Morbid obesity Major Depression - Secondary Discharge Diagnosis Chronic Problems Hypertension (Chronic) Alcohol abuse (Chronic) Hospital Course and Treatment Imaging Results: RAD/Chest 1 View (Portable) IMPRESSION: Mild cardiomegaly. Mild degree of vascular congestion. CT/CTA Abdomen W/WO Contrast IMPRESSION: Hepatomegaly and fatty infiltration of the liver. Minimal amount of free fluid along the inferior medial aspect of the liver. Small amount of pericholecystic fluid. Right renal cyst. CT/CTA Chest W/WO Contrast IMPRESSION: Linear atelectasis and/or scarring at the lung bases. Fatty infiltration of the liver. US/Kidney and Bladder IMPRESSION: 1. 4.6 cm cortical cyst at the mid to lower pole of the right kidney, otherwise normal ultrasound of the kidneys. 2. The urinary bladder is collapsed around a Chung catheter.. US/Gallbladder IMPRESSION: Hepatomegaly. Fatty attrition of the liver. Thickened gallbladder wall. Small amount of pericholecystic fluid. Consultations 04/13/19 11:24 Consult: Mental Health/Crisis Routine Reason for consult?: intentional overdose Date Notified:: 04/13/19 Time notified:: 11:24 Ale - nephrology Srinivasa / Zhou - Medical [employer] Operations: None Summary of Care Provided: Hospital course: The patient is a 53 year old M with pmhx of depression, morbid obesity, alcoholism, who presented to the ER with chest pain, hypotension, with sweats and burning chest pain, and dizziness. He is an alcoholic and was drinking about 1 pint of alcohol daily. He admitted that he had intentionally taken all of his lisinopril and coreg in a suicide attempt the night prior, while drinking. He was admitted to the ICU as he was hypotensive to 69/45 and bradycardic with hyperkalemia. He appeared to have DONNY as well, and was given aggressive IV fluids. He was started on the alcohol withdrawal protocol with ativan and librium. Renal function worsened and he was seen by Nephrology. CT abdomen was unremarkable showing fatty liver small amount of fluid and right renal cyst. The renal ultrasound was unremarkable showing a 4.6cm renal cyst. Gallbladder showed hepatomegaly, fatty liver, thickened GB wall and small amount of pericholecystic fluid. He did not require dialysis. He did develop LE edema and SOB. Recent echo in January of this year demonstrated preserved ejection fraction. He was felt to have acute diastolic CHF 2/2 volume overload. He was started on lasix. He renal function improved with lasix. His coreg was resumed after a single episode of 19 beats v tach. No events after resumption. He was discharged to inpatient psych as this was a suicide attempt. He will need follow up with his PCP in 1-2 weeks, neprhology 1-2 weeks, and cardiology in 2 weeks. This patient was seen by Kevin Orellana PA-C under the supervision of Doctor Oilva. [] Patient Problems: Active and Suspected Problems Shock (Acute) Beta jey toxicity (Acute) Overdose of beta-adrenergic antagonist drug (Acute) DONNY (acute kidney injury) (Acute) - Physical Exam General: Alert, Oriented x3, Cooperative HEENT: Atraumatic, PERRLA, EOMI, Normocephalic Neck: Supple, No JVD, Negative Carotid Bruits Lungs: Clear to auscultation, Normal air movement Cardiovascular: Regular rate, No murmurs Abdomen: Bowel Sounds Present, Soft, Non Tender, Obese Extremities: Capillary Refill Less than 3 Seconds, Edema - improvement in LE edema. Skin: No rashes, No breakdown Musculoskeletal: No Tenderness to Palpation of Joints or Extremities Neurological: Cranial nerves II-XII grossly intact Psych/Mental Status: Depressed, Alert and oriented to time, place, person, mood and affect Vital Signs Temp Pulse Resp BP Pulse Ox 97.0 F L 79 18 158/86 H 98 04/16/19 12:00 04/16/19 13:57 04/16/19 12:00 04/16/19 13:57 04/16/19 12:00 Oxygen Flow Rate (L/min) 2 Oxygen Delivery Method Room Air Weight: 285 lb 11.505 oz Body Mass Index (BMI) 45.8 Intake and Output for Last 24 Hours 04/14/19 04/15/19 04/16/19 23:59 23:59 23:59 Intake Total 4846 / 4846 1260 / 1260 930 / 930 Output Total 6325 / 6325 3500 / 3500 975 / 975 Balance -1479 / -1479 -2240 / -2240 -45 / -45 Microbiology Past 72 Hours 04/11/19 11:39 Blood Culture - Final Blood Culture (Wb) - Anticubital Right No growth in 5 days. 04/11/19 11:30 Blood Culture - Final Blood Culture (Wb) - Left Hand No growth in 5 days. Laboratory Tests Past 24 Hrs 04/15/19 06:10 Magnesium 2.2 Discharge Diet: Low fat/ Low Cholesterol, 2000 mg Sodium Diet Discharge Activity: Return to Normal Activity Home Medications: Medications to take at Discharge Acetaminophen [Tylenol Tablet] 650 mg PO Q6H PRN PRN tablet 04/16/19 Carvedilol [Coreg] 3.125 mg PO BID 60 Days #60 tab 04/16/19 Furosemide [Lasix] 40 mg PO DAILY #30 tab 04/16/19 hydrALAZINE [Apresoline] 10 mg PO TID #90 tab 04/16/19 Following Prescrptions Were Given to Patient: Carvedilol [Coreg] 3.125 mg PO BID 60 Days #60 tab Furosemide [Lasix] 40 mg PO DAILY #30 tab hydrALAZINE [Apresoline] 10 mg PO TID #90 tab Primary Care Physician: Care Physician,No Primary [Primary Care Provider] - Please follow up with your Primary Care Physician in: 1-2 weeks Please Follow Up With: Lee Mcleod MD When: 3-4 weeks Disposition: Psych Hospital or Unit Minutes spent on discharge:: 40 Patient Condition:: Stable Medical Necessity - Tobacco Use Smoking Status: Former smoker Tobacco Use: Non-smoker Meaningful Use Info Meaningful Use Diagnoses (Choose all that apply): CHF - CHF DANYELLE/ARB ordered at discharge?: No Reason DANYELLE/ARB not ordered?: Worsening renal disease Documented LVEF (%): 65 <Graeme Oliva - Last Filed: 04/16/19 15:23> Discharge Date and Diagnosis - Primary Discharge Diagnosis Active and Suspected Problems Shock (Acute) Beta jey toxicity (Acute) Overdose of beta-adrenergic antagonist drug (Acute) DONNY (acute kidney injury) (Acute) - Secondary Discharge Diagnosis Chronic Problems Hypertension (Chronic) Alcohol abuse (Chronic) Hospital Course and Treatment Consultations 04/13/19 11:24 Consult: Mental Health/Crisis Routine Reason for consult?: intentional overdose Date Notified:: 04/13/19 Time notified:: 11:24 Summary of Care Provided: This patient was seen in conjunction with Kevin Orellana PA-C . I have independently interviewed and examined the patient and reviewed pertinent historical, laboratory, and other data. Please refer to Kevin Orellana PA-C note for details of this patient's presentation, findings, and recommendations. I have reviewed Kevin Orellana PA-C note and concur with documented findings. In brief, patient is a 53-year-old M with multiple comorbidities including chronic diastolic congestive heart failure major depression admitted following apparent suicide attempt. Hospital course complicated by development of acute kidney injury as well as acute congestive heart failure patient was transferred to an inpatient psych facility once medically stable for treatment of his severe depression with suicidal attempt Physical Examination: GENERAL: cooperative HEENT: Atraumatic; moist oral mucosa EYES; Anicteric, Normal Conjunctiva NECK; supple, normal thyroid, no distended JVD. RESPIRATORY: Diminished to auscultation bilaterally, CARDIOVASCULAR: Regular S1 S2, NEURO: Awake; no lateralizing signs. SKIN: No Rash PSYCH; significantly flat affect Assessment: 1. Severe depression with suicidal attempt 2. Acute kidney injury 3. Acute congestive heart failure with preserved ejection fraction 4. Essential hypertension 5. Chronic alcohol dependence 6. Morbid obesity with BMI of 48.1 7. DVT prophylaxis SC heparin Hospital course: As documented above - Physical Exam Vital Signs Temp Pulse Resp BP Pulse Ox 97.0 F L 75 18 158/86 H 98 04/16/19 12:00 04/16/19 15:00 04/16/19 12:00 04/16/19 13:57 04/16/19 12:00 Oxygen Flow Rate (L/min) 2 Oxygen Delivery Method Room Air Weight: 129.6 kg Body Mass Index (BMI) 45.8 Intake and Output for Last 24 Hours 04/14/19 04/15/19 04/16/19 23:59 23:59 23:59 Intake Total 4846 / 4846 1260 / 1260 1490 / 1490 Output Total 6325 / 6325 3500 / 3500 2625 / 2625 Balance -1479 / -1479 -2240 / -2240 -1135 / -1135 Microbiology Past 72 Hours 04/11/19 11:39 Blood Culture - Final Blood Culture (Wb) - Anticubital Right No growth in 5 days. 04/11/19 11:30 Blood Culture - Final Blood Culture (Wb) - Left Hand No growth in 5 days. Laboratory Tests Past 24 Hrs 04/15/19 06:10 Magnesium 2.2 Code Visit Inpatient E&M: [id number] Disch Hosp
--- NOTE | 2019-04-16 20:59 | NURSING ---
Spoke with Rupali crisis counselor at this time. Still waiting on [facility] to review pts records. Rupali crisis counselor will call back when she hears back from [facility].
[2019-04-16] MEDS: Acetaminophen 325 MG Tablet 650 MG PO (21:16)
[2019-04-17] VITALS (13 sets, daily range): BP systolic 153–179; BP diastolic 81–96; PULSE 66–107; RESP 16–20; TEMP 36.4–36.8; O2SAT 95–97
[2019-04-17] MEDS: hydrALAZINE 10 MG Tablet PO (05:25)
--- NOTE | 2019-04-17 07:52 | PCM.PN.BLA ---
Progress Note Late entry notes 4 04/16/2019 This patient was seen in conjunction with Kevin Orellana PA-C . I have independently interviewed and examined the patient and reviewed pertinent historical, laboratory, and other data. Please refer to Kevin Orellana PA-C note for details of this patient's presentation, findings, and recommendations. I have reviewed Kevin Orellana PA-C note and concur with documented findings. In brief, patient is a 53-year-old M with multiple comorbidities including chronic diastolic congestive heart failure major depression admitted following apparent suicide obtained. Hospital course complicated by development of acute kidney injury as well as acute congestive heart failure Plan was for patient to have been discharged to a care home facility however bed could not be obtained resulting in patient being kept. Physical Examination: GENERAL: cooperative HEENT: Atraumatic; moist oral mucosa EYES; Anicteric, Normal Conjunctiva NECK; supple, normal thyroid, no distended JVD. RESPIRATORY: Diminished to auscultation bilaterally, CARDIOVASCULAR: Regular S1 S2, NEURO: Awake; no lateralizing signs. SKIN: No Rash PSYCH; significantly flat affect Assessment: 1. Severe depression with suicidal attempt 2. Acute kidney injury 3. Acute congestive heart failure with preserved ejection fraction 4. Essential hypertension 5. Chronic alcohol dependence 6. Morbid obesity with BMI of 48.1 7. DVT prophylaxis SC heparin Recommendations: 1. I have discussed the results of my overview and impressions with the patient 2. Options for management were reviewed Code Visit Inpatient E&M: [id number] Subs Hosp L2
[2019-04-17] MEDS: Heparin Injection (Vial) 5,000 UNIT/ML VIAL 5000 UNIT SC ×2 (09:22→21:55)
[2019-04-17] MEDS: Furosemide 40 MG Tablet PO (09:22)
[2019-04-17] MEDS: Psyllium 1 PACKET PO (09:22)
[2019-04-17 09:24] LABS: Absolute Lymphocyte Count 1.13 X10^3/ul (0.83-4.51); Absolute Neutrophil Count 4.6 X10^3/uL (2.0-7.7); Basophil# 0.05 X10^3/uL; Basophil% 0.8 % (0-1); Eosinophil# 0.33 X10^3/uL; Hematocrit 39.8 % (40-54); Hemoglobin 13.4 g/dl (13.0-16.5); Lymphocyte # 1.13 X10^3/ul (4.0); Lymphocyte % 17.2 % (19-41); Mean Corp Hgb Conc 33.7 g/gl (32-36); Mean Corpuscular Hgb 30.7 pg (27.0-32.0); Mean Corpuscular Volume 91.3 fL (80-94); Mean Platelet Vol. 9.2 fl (6.2-12.0); Monocyte# 0.49 X10^3/uL; Monocyte% 7.4 % (0-10); Neutrophil # 4.57 X10^3/uL (2.7-7.7); Neutrophil % 69.4 % (47-70); Platelet Count 125 K/mm3 (150-450); RBC Distribution Width CV 13.9 % (11.6-14.6); RBC Distribution Width SD 45.7 fl (35.1-43.9); Red Blood Count 4.36 M/mm3 (4.6-6.2); White Blood Count 6.6 K/mm3 (4.4-11.0)
[2019-04-17 09:26] LABS: POSITIVE COUNT NO; POSITIVE DIFFERENTIAL NO; POSITIVE MORPHOLOGY NO
[2019-04-17 09:43] LABS: Anion Gap 10 (5-15); BUN 29 mg/dL (7-18); BUN/Creat Ratio 10.5 RATIO (10-20); Calcium,Total 8.5 mg/dL (8.5-10.1); Chloride 107 mmol/L (98-107); Creatinine, Serum 2.76 mg/dL (0.70-1.30); EST Glomerular Filtration Rate 26 mL/min (>60); Est Glom Filt Rate - Afr Amer 31 mL/min (>60); Estimated Creatinine Clearance 27.61 ml/min; Glucose 140 mg/dL (74-106); Magnesium 1.8 mg/dL (1.6-2.6); Potassium 3.9 mmol/L (3.5-5.1); Sodium Level 142 mmol/L (136-145)
[2019-04-17] MEDS: Carvedilol 3.125 MG TABLET PO ×2 (10:44→21:55)
--- NOTE | 2019-04-17 11:56 | PN.RENAL_ITS ---
Patient Problems: Active and Suspected Problems Shock (Acute) Beta jey toxicity (Acute) Overdose of beta-adrenergic antagonist drug (Acute) DONNY (acute kidney injury) (Acute) Subjective: no new events waiting for bed at psych facility - Physical Exam General: Alert, Oriented x3, Cooperative HEENT: Atraumatic, PERRLA, EOMI, Normocephalic Neck: Supple, No JVD, Negative Carotid Bruits Lungs: Clear to auscultation, Normal air movement Cardiovascular: Regular rate, No murmurs Abdomen: Bowel Sounds Present, Soft, Non Tender Extremities: Capillary Refill Less than 3 Seconds, Edema Skin: No rashes, No breakdown Musculoskeletal: No Tenderness to Palpation of Joints or Extremities Neurological: Cranial nerves II-XII grossly intact Psych/Mental Status: Normal Affect, Appropriate Vital Signs Temp Pulse Resp BP Pulse Ox 97.6 F L 68 16 154/81 H 97 04/17/19 08:00 04/17/19 08:00 04/17/19 08:00 04/17/19 08:00 04/17/19 08:00 Oxygen Flow Rate (L/min) 2 Oxygen Delivery Method Room Air Weight: 126 kg Body Mass Index (BMI) 45.8 Intake and Output for Last 24 Hours 04/15/19 04/16/19 04/17/19 23:59 23:59 23:59 Intake Total 1260 / 1260 1730 / 1730 480 / 480 Output Total 3500 / 3500 3550 / 3550 750 / 750 Balance -2240 / -2240 -1820 / -1820 -270 / -270 Microbiology Past 72 Hours 04/11/19 11:39 Blood Culture - Final Blood Culture (Wb) - Anticubital Right No growth in 5 days. 04/11/19 11:30 Blood Culture - Final Blood Culture (Wb) - Left Hand No growth in 5 days. Laboratory Tests Past 24 Hrs 04/17/19 04/17/19 09:14 09:14 WBC 6.6 RBC 4.36 L Hgb 13.4 Hct 39.8 L MCV 91.3 MCH 30.7 MCHC 33.7 RDW 13.9 RDW Differential 45.7 H Plt Count 125 L MPV 9.2 Immature Gran % (Auto) 0.200 Neut % (Auto) 69.4 Lymph % (Auto) 17.2 L [place] % (Auto) 7.4 Eos % (Auto) 5.0 Baso % (Auto) 0.8 Absolute Neuts (auto) 4.6 Absolute Lymphs (auto) 1.13 Total Counted Not Reportable Sodium 142 Potassium 3.9 Chloride 107 Carbon Dioxide 25.0 Anion Gap 10 BUN 29 H Creatinine 2.76 H Estim Creat Clear Calc 27.61 Est GFR (MDRD) Af Amer 31 L Est GFR (MDRD) Non-Af 26 L BUN/Creatinine Ratio 10.5 Glucose 140 H Calcium 8.5 Magnesium 1.8 Medical Necessity - Tobacco Use Smoking Status: Former smoker Tobacco Use: Non-smoker Assessment/Plan All Active Problems Shortness of breath (Acute) Venous stasis dermatitis (Acute) Shock (Acute) Beta jey toxicity (Acute) Overdose of beta-adrenergic antagonist drug (Acute) DONNY (acute kidney injury) (Acute) Elevated blood pressure (Acute) Hyponatremia (Acute) Chest pain (Acute) Acute renal failure. Normal baseline creatinine. CT of the abdomen does not show any hydronephrosis. Blood pressure is better. UA is benign. Creatinine is trending down. Bp is ok. continue lasix 40 mg once daily for now. Hyperkalemia. Due to acute renal failure, DANYELLE inhibitor. resolved edema. weight trending down on lasix
--- NOTE | 2019-04-17 12:24 | PN_ITS ---
<Kevin Orellana - Last Filed: 04/17/19 12:22> Patient Problems: Active and Suspected Problems Shock (Acute) Beta jey toxicity (Acute) Overdose of beta-adrenergic antagonist drug (Acute) DONNY (acute kidney injury) (Acute) Subjective: Patient resting comfortably in chair bedside, no acute distress. Lower extremity edema and shortness of breath have both improved after being switched over to p.o. Lasix from IV. No fevers or chills. No other issues. The patient is waiting for acceptance at the inpatient psych unit. - Physical Exam General: Alert, Oriented x3, Cooperative HEENT: Atraumatic, PERRLA, EOMI, Normocephalic Neck: Supple, No JVD, Negative Carotid Bruits Lungs: Clear to auscultation, Normal air movement Cardiovascular: Regular rate, No murmurs Abdomen: Bowel Sounds Present, Soft, Non Tender, Obese Extremities: Capillary Refill Less than 3 Seconds, Edema Skin: No rashes, No breakdown Musculoskeletal: No Tenderness to Palpation of Joints or Extremities Neurological: Cranial nerves II-XII grossly intact Psych/Mental Status: Normal Affect, Appropriate, Alert and oriented to time, place, person, mood and affect Vital Signs Temp Pulse Resp BP Pulse Ox 97.6 F L 68 16 154/81 H 97 04/17/19 08:00 04/17/19 08:00 04/17/19 08:00 04/17/19 08:00 04/17/19 08:00 Oxygen Flow Rate (L/min) 2 Oxygen Delivery Method Room Air Weight: 277 lb 12.519 oz Body Mass Index (BMI) 45.8 Intake and Output for Last 24 Hours 04/15/19 04/16/19 04/17/19 23:59 23:59 23:59 Intake Total 1260 / 1260 1730 / 1730 480 / 480 Output Total 3500 / 3500 3550 / 3550 750 / 750 Balance -2240 / -2240 -1820 / -1820 -270 / -270 Microbiology Past 72 Hours 04/11/19 11:39 Blood Culture - Final Blood Culture (Wb) - Anticubital Right No growth in 5 days. 04/11/19 11:30 Blood Culture - Final Blood Culture (Wb) - Left Hand No growth in 5 days. Laboratory Tests Past 24 Hrs 04/17/19 04/17/19 09:14 09:14 WBC 6.6 RBC 4.36 L Hgb 13.4 Hct 39.8 L MCV 91.3 MCH 30.7 MCHC 33.7 RDW 13.9 RDW Differential 45.7 H Plt Count 125 L MPV 9.2 Immature Gran % (Auto) 0.200 Neut % (Auto) 69.4 Lymph % (Auto) 17.2 L Warren % (Auto) 7.4 Eos % (Auto) 5.0 Baso % (Auto) 0.8 Absolute Neuts (auto) 4.6 Absolute Lymphs (auto) 1.13 Total Counted Not Reportable Sodium 142 Potassium 3.9 Chloride 107 Carbon Dioxide 25.0 Anion Gap 10 BUN 29 H Creatinine 2.76 H Estim Creat Clear Calc 27.61 Est GFR (MDRD) Af Amer 31 L Est GFR (MDRD) Non-Af 26 L BUN/Creatinine Ratio 10.5 Glucose 140 H Calcium 8.5 Magnesium 1.8 Medical Necessity - Tobacco Use Smoking Status: Former smoker Tobacco Use: Non-smoker Assessment/Plan All Active Problems Shortness of breath (Acute) Venous stasis dermatitis (Acute) Shock (Acute) Beta jey toxicity (Acute) Overdose of beta-adrenergic antagonist drug (Acute) DONNY (acute kidney injury) (Acute) Elevated blood pressure (Acute) Hyponatremia (Acute) Chest pain (Acute) 1. Suicide attempt with htn meds - (coreg/lisinopril) BP/Tele stable. Crisis following. Pt to go to inpatient psych -Blood pressure is improving -Titrate current regimen -No further tachyarrhythmias since being back on Coreg for 2 nights. 2. DONNY 2/2 above - continues to improve with the addition of lasix 3. Acute diastolic CHF exacerbation - breathing improved. Legs very edematous. Add DANYELLE wraps. Continue lasix. 4. Mild normocytic anemia - [place] 5. Alcoholism - on librium/ativan. Somewhat abnormal LFTs. Withdrawal seems well controlled. 6. Morbid obesity - dietary eval. 7. Major depression - as per #1 DVT ppx: heparin DC planning: inpatient psych. The patient remains medically stable and cleared for discharge to inpatient psych. This patient was seen by Kevin Orellana PA-C under the supervision of Dr. Oliva <Graeme Oliva - Last Filed: 04/17/19 14:26> - Physical Exam Vital Signs Temp Pulse Resp BP Pulse Ox 97.9 F 76 16 153/85 H 97 04/17/19 14:00 04/17/19 14:00 04/17/19 14:00 04/17/19 14:00 04/17/19 14:00 Oxygen Flow Rate (L/min) 2 Oxygen Delivery Method Room Air Weight: 126 kg Body Mass Index (BMI) 45.8 Intake and Output for Last 24 Hours 04/15/19 04/16/19 04/17/19 23:59 23:59 23:59 Intake Total 1260 / 1260 1730 / 1730 1460 / 1460 Output Total 3500 / 3500 3550 / 3550 2350 / 2350 Balance -2240 / -2240 -1820 / -1820 -890 / -890 Microbiology Past 72 Hours 04/11/19 11:39 Blood Culture - Final Blood Culture (Wb) - Anticubital Right No growth in 5 days. 04/11/19 11:30 Blood Culture - Final Blood Culture (Wb) - Left Hand No growth in 5 days. Laboratory Tests Past 24 Hrs 04/17/19 04/17/19 09:14 09:14 WBC 6.6 RBC 4.36 L Hgb 13.4 Hct 39.8 L MCV 91.3 MCH 30.7 MCHC 33.7 RDW 13.9 RDW Differential 45.7 H Plt Count 125 L MPV 9.2 Immature Gran % (Auto) 0.200 Neut % (Auto) 69.4 Lymph % (Auto) 17.2 L Warren % (Auto) 7.4 Eos % (Auto) 5.0 Baso % (Auto) 0.8 Absolute Neuts (auto) 4.6 Absolute Lymphs (auto) 1.13 Total Counted Not Reportable Sodium 142 Potassium 3.9 Chloride 107 Carbon Dioxide 25.0 Anion Gap 10 BUN 29 H Creatinine 2.76 H Estim Creat Clear Calc 27.61 Est GFR (MDRD) Af Amer 31 L Est GFR (MDRD) Non-Af 26 L BUN/Creatinine Ratio 10.5 Glucose 140 H Calcium 8.5 Magnesium 1.8 Assessment/Plan This patient was seen in conjunction with Kevin Orellana PA-C . I have independently interviewed and examined the patient and reviewed pertinent historical, laboratory, and other data. Please refer to Kevin Orellana PA-C note for details of this patient's presentation, findings, and recommendations. I have reviewed Kevin Orellana PA-C note and concur with documented findings. In brief, patient is a 53-year-old M with multiple comorbidities including chronic diastolic congestive heart failure major depression admitted following apparent suicide obtained. Hospital course complicated by development of acute kidney injury as well as acute congestive heart failure 04/16/2019 plan was for patient to have been [facility] however bed could not be obtained resulting in patient being kept. 04/17/2019: Patient kidney function improving. Still waiting to hear from the inpatient psych facility prior to disposition Physical Examination: GENERAL: cooperative HEENT: Atraumatic; moist oral mucosa EYES; Anicteric, Normal Conjunctiva NECK; supple, normal thyroid, no distended JVD. RESPIRATORY: Diminished to auscultation bilaterally, CARDIOVASCULAR: Regular S1 S2, NEURO: Awake; no lateralizing signs. SKIN: No Rash PSYCH; significantly flat affect Assessment: 1. Severe depression with suicidal attempt 2. Acute kidney injury 3. Acute congestive heart failure with preserved ejection fraction 4. Essential hypertension 5. Chronic alcohol dependence 6. Morbid obesity with BMI of 48.1 7. DVT prophylaxis SC heparin Recommendations: 1. I have discussed the results of my overview and impressions with the patient 2. Options for management were reviewed
[2019-04-17] MEDS: hydrALAZINE 25 MG Tablet PO ×2 (14:00→21:55)
--- NOTE | 2019-04-17 15:15 | CASEMGMT ---
RN spoke with crisis around lunch today. [facility] is having another physician review patient's information as they are concerned about his medical issues. RN explained patient is medically cleared. Alicia FRITZ MSW
[2019-04-17] MEDS: Acetaminophen 325 MG Tablet 650 MG PO (20:35)
== END 2019-04-17 22:20 | DRG 917 ==
LOC: ED 11:44 → ICU 14:37 → PCU 04-12 21:30
PROVIDERS: Internal Medicine; Internal Medicine Critical Care Medicine; Physician Assistant; Admitting Provider Internal Medicine; Emergency Provider Emergency Medicine; Visit Provider Internal Medicine
DX: T46.4X2A Poisoning by angiotensin-converting-enzyme inhibitors, intentional self-harm, initial encounter (principal); N17.0 Acute kidney failure with tubular necrosis; I50.33 Acute on chronic diastolic (congestive) heart failure; R57.9 Shock, unspecified; E87.1 Hypo-osmolality and hyponatremia; Z68.42 Body mass index [BMI] 45.0-49.9, adult; F10.239 Alcohol dependence with withdrawal, unspecified; I47.2 Ventricular tachycardia; I11.0 Hypertensive heart disease with heart failure; T44.7X2A Poisoning by beta-adrenoreceptor antagonists, intentional self-harm, initial encounter; K75.81 Nonalcoholic steatohepatitis (NASH); E87.5 Hyperkalemia; E86.1 Hypovolemia; E86.0 Dehydration; F32.9 Major depressive disorder, single episode, unspecified; F10.20 Alcohol dependence, uncomplicated; E66.01 Morbid (severe) obesity due to excess calories; Y92.9 Unspecified place or not applicable; Z79.899 Other long term (current) drug therapy; Z87.891 Personal history of nicotine dependence
CPT/HCPCS: 36415; 71045; 71275; 74175; 76705; 76770; 80048; 80053; 80320; 81001; 83605; 83735; 84484; 85025; 85610; 85730; 87040; 87086; 93005; 97110; 97116; 97163; 97166; 97530; 97535; 97802; 99285; J7030; P9612; Q9967; A4216; G0480; J1610; J1940; J2405

== ENCOUNTER → 2025-05-26 | Outpatient (CLI) | payer MEDICAID, SELFPAY ==
[2025-05-26 12:38] LABS: Hematocrit 45.5 % (40-54); Hemoglobin 15.2 g/dL (13.0-16.5); Immature Granulocytes Count 0.020 X10^3/uL (0.0-0.0); Mean Corp Hgb Conc 33.4 g/dL (32-36); Mean Corpuscular Volume 86.2 fL (80-94); Mean Platelet Vol. 9.8 fl (6.2-12.0); NRBC Flagged by Analyzer 0 % (0-5); Platelet Count 172 K/mm3 (150-450); RBC Distribution Width CV 13.5 % (11.6-14.6); RBC Distribution Width SD 41.9 fl (35.1-43.9); Red Blood Count 5.28 M/mm3 (4.6-6.2); White Blood Count 8.0 K/mm3 (4.4-11.0)
[2025-05-26 13:11] LABS: AST(SGOT) 18 U/L (<=37); Alanine Aminotransfer ALT/SGPT 24 U/L (<=46); Albumin, Serum 4.5 g/dL (3.4-4.8); Alkaline Phosphatase 88 U/L (40-129); Anion Gap 13 (5-15); BUN 20 mg/dL (4-19); BUN/Creat Ratio 16.8 RATIO (10-20); Calcium,Total 9.9 mg/dL (7.6-11.0); Carbon Dioxide 23.4 mmol/L (21.0-32.0); Chloride 102 mmol/L (98-108); Cholesterol 188 mg/dL (<=200); Globulin 2.7 g/dL (2.2-4.2); Glucose 104 mg/dL (70-99); Low Density Lipoprotein Calc. 115 mg/dL; PSA,Total - Annual Screen 1.70 ng/mL (0.02-4.00); Potassium 4.7 mmol/L (3.3-5.1); Pro- Brain NATRIURETIC PEPTIDE < 36 pg/mL (<=900); Triglycerides 163 mg/dL; Uric Acid 7.5 mg/dL (3.5-7.2); Very Low Density Lipoprotein 33 mg/dL (5-40); cholesterol:hdl ratio screen 4.68
--- OUTSIDE RECORDS SUMMARY | 2025-05-26 21:16 | XMS RPT_ITS | CCD ---
Author Organization [facility] Inform ion Partnership [facility] Care Team Providers Care Quartz Orientator Name Role Phone Danyel Galvez MD Primary Care Provider [phone] DANYEL GALVEZ Primary Care Unavailable YASSINE SCHREIBER Attending UnavailSHARRON Carlton CNP Admitting Unavailable SHARRON LANDIN CNP Attending Unavailable SHARRON LANDIN CNP Primary Care Unavailable SHARRON LANDIN CNP Attending Unavailable SHARRON LANDIN CNP Primary Care Unavailable SHARRON LANDIN CNP Admitting Unavailable Medications Current Medications Medication Drug Class(es) Dates Sig (Normalized) Sig (Original) benoxinate hydrochloride 4 mg/ml / fluorescein sodium 2.5 mg/ml ophthalmic solution (1 source) Diagnostic Dye Start: 08-12-2022 End: 08-13-2022 fluorescein-benoxi jorge 0.25-0.4 % 1 Drop (FLURESS) moxifloxacin 5 mg/ml ophthalmic solution (1 source) Quinolone Antimicrobial Start: 08-12-2022 End: 08-19-2022 take 1 drop(s) into the eye(s) four times daily moxifloxacin (VIGAMOX) 0.5 % ophthalmic solution Use 1 Drop in the right eye four times daily for 7 days. 3 mL 0 08/12/2022 08/19/2022 Active Comment on above: Use 1 Drop in the ri ght eye four times daily for 7 days. phenylephrine hydrochloride 25 mg/ml ophthalmic solution (1 source) alpha-1 Adrenergic Agonist Start: 08-12-2022 End: 08-13-2022 PHENYLephrine 2.5 % 1 Drop (AK-DILATE, LEONARD-SYNEPHRINE) proparacaine hydrochloride 5 mg/ml ophthalmic solution (2 sources) Local Anesthetic Start: 08-12-2022 End: 08-13-2022 proparacaine 0.5 % 1 Drop (ALCAINE) Completed/Discontinued Medications Medication Drug Class(es) Dates Sig (Normalized) Sig (Original) carvedilol 3.125 mg oral tablet (1 source) alpha-Adrenergic Prema, beta-Adrenergic Prema Start: 02-14-2019 take 1 tablet by mouth twice daily carvedilol (COREG) 3.125 mg tablet Take 1 tablet by mouth twice daily. 0 02/14/2019 Active Comment on above: Take 1 tablet by kenisha twice daily. cyclopentolate hydrochloride 10 mg/ml ophthalmic solution (1 source) Start: 08-12-2022 End: 08-12-2022 cyclopentolate 1 % 1 Drop (CYCLOGYL) disulfiram 250 mg oral tablet (1 source) Aldehyde Dehydrogenase Inhibitor Start: 05-24-2019 take 1 tablet by mouth once daily disulfiram (ANTABUSE) 250 mg tablet Take 1 tablet by mouth once daily. 0 05/24/2019 Active Comment on above: Take 1 tablet by kenisha once daily. furosemide 40 mg oral tablet (1 source) Loop Diuretic Start: 04-16-2019 take 1 tablet by mouth once daily furosemide (LASIX) 40 mg tablet Take 1 tablet by mouth once daily. 0 04/16/2019 Active Comment on above: Take 1 tablet by kenisha once daily. hydrALAZINE hydrochloride 10 mg oral tablet (1 source) Arteriolar Vasodilator Start: 04-16-2019 take 1 tablet by mouth three times daily hydrALAZINE (APRESOLINE) 10 mg tablet Take 1 tablet by mouth three times daily. 0 04/16/2019 Active Comment on above: Take 1 tablet by kenisha three times daily. lisinopril 10 mg oral tablet (1 source) Angiotensin Converting Enzyme Inhibitor Start: 02-14-2019 take 1 tablet by mouth once daily lisinopril (ZESTRIL, PRINIVIL) 10 mg tablet Take 1 tablet by mouth once daily. 0 02/14/2019 Active Comment on above: Take 1 tablet by kenisha once daily. tropicamide 10 mg/ml ophthalmic solution (2 sources) Anticholinergic Start: 08-12-2022 End: 08-13-2022 tropicamide 1 % 1 Drop (MYDRIACYL) Problems Problem Classification Problem Date Documented Date Episodic/Chronic Alcohol-related disorders (1 source) Alcohol abuse, in remission; Translations: [Alcohol abuse, in remission] Onset: 10-25-2023 Chronic Congestive heart failure; nonhypertensive (1 source) Chronic diastolic (congestive) heart failure; Translations: [Chronic diastolic (congestive) heart failure] Onset: 10-25-2023 Chronic Essential hypertension (1 source) Essential (primary) hypertension; Translations: [Essential (primary) hypertension] Onset: 10-25-2023 Chronic Other connective tissue disease (1 source) Personal history of other diseases of the musculoskeletal system and connective tissue; Translations: [Personal history of other diseases of the musculoskeletal system and connective tissue] Onset: 10-25-2023 Episodic Other eye disorders (1 source) Corneal epithelial defect; Translations: [Unspecified corneal membrane change] Episodic Other injuries and conditions due to external causes (1 source) Foreign body in conjunctival sac; Translations: [Foreign body in conjunctival sac, right eye, initial encounter] Episodic Other nutritional; endocrine; and metabolic disorders (1 source) Morbid (severe) obesity due to excess calories; Translations: [Morbid (severe) obesity due to excess calories] Onset: 10-25-2023 Chronic Other nutritional; endocrine; and metabolic disorders (1 source) Hyperuricemia without signs of inflammatory arthritis and tophaceous disease; Translations: [Hyperuricemia without signs of inflammatory arthritis and tophaceous disease] Onset: 10-25-2023 Episodic Other screening for suspected conditions (not mental disorders or infectious disease) (3 sources) Encounter for screening for diabetes mellitus; Translations: [Encounter for screening for cardiovascular disorders] Onset: 10-25-2023 Episodic Thyroid disorders (1 source) Hypothyroidism, unspecified; Translations: [Hypothyroidism, unspecified] Onset: 10-25-2023 Chronic Results Test Name Value Interpretation Reference Range Facil ity CHEST 2 VIEW PA AND LATon CHEST 2 VIEW PA AND LAT Patient Name: REYES ANTON STUDY: CHEST 2 VIEW PA AND LAT; 12/11/2019 4:37 pm INDICATION: shortness of breath. COMPARISON: None. ACCESSION NUMBER(S): [id number] ORDERING CLINICIAN: FREDO BALES FINDINGS: CARDIOMEDIASTINAL SILHOUETTE: Cardiac silhouette is borderline in size. LUNGS: No focal infiltrate. There is left basilar mild linear atelectasis or scar.No pleural effusion or pneumothorax. ABDOMEN: No remarkable upper abdominal findings. BONES: Mild multilevel predominantly anterior endplate spurring present in the spine. IMPRESSION: 1. No evidence of acute cardiopulmonary process. Electronically signed by: GABY RAJAN MD [facility] Provider Note - ED v2on 11-14 Provider Note - ED v2 Provider Note - ED v2: Chart Review: ED NOTES ED NOTES: ORDERING CLINICIAN: FREDO BALES FINDINGS: CARDIOMEDIASTINAL SILHOUETTE: Cardiac silhouette is borderline in size. LUNGS: No focal infiltrate. There is left basilar mild linear atelectasis or scar.No pleural effusion or pneumothorax. ABDOMEN: No remarkable upper abdominal findings. BONES: Mild multilevel predominantly anterior endplate spurring present in the spine. IMPRESSION: 1. No evidence of acute cardiopulmonary process. HISTORY OF PRESENTING ILLNESS REYES is a 54 year old Male and was seen by me at 11-Dec-2019 16:13. Triage Information: Most recent Vital Sign Value Date PAST MEDICAL HISTORY ATTESTATION: I have reviewed and confirmed nurse's/medic's notes for patient's medications, allergies, medical history, and surgical history ALLERGIES/INTOLERANCES: No Known Allergies HEALTH HISTORY: No documented data. OUTPATIENT MEDICATIONS: Home Medications Review Status for Reconciliation: Complete Med Status: No Current Medications SIGNIFICANT EVENTS: No documented data. RESULTS/VITAL SIGNS VITAL SIGNS: T PRBP SpO2O2(LPM) %FiO2 Method 11-Dec-2019 16:22:[id number] MEDICAL DECISION MAKING/ED COURSE MDM/ED COURSE: This note was generated with voice recognition software and may contain errors including spelling, grammar, syntax, and misrecognization of what was dictated Chief Complaint Fever and body aches History of Present Illness Patient presents in no apparent distress with a one-day history of fever, body aches, cough, fatigue, and a sore throat. Patient states only time has made their symptoms worse while ibuprofen has improved their body aches. Patient denies any chest pain or shortness of breath. Review of Systems 10 systems reviewed negative with exception of history of present illness listed above Physical Examination General: Alert and oriented, No acute distress. Eye: Pupils are equal, round and reactive to light. HENT: Normocephalic Neck: Supple, Non-tender, No lymphadenopathy. Respiratory: Lungs are clear to auscultation, Respirations are non-labored, Breath sounds are equal, Symmetrical chest wall expansion. Cardiovascular: Normal rate, Regular rhythm. Musculoskeletal: Normal range of motion, normal strength, no tenderness, no swelling. Integumentary: [place], warm, dry, and Intact. Neurologic: Alert, Oriented, Normal sensory, Normal motor function. Cognition and Speech: Oriented, Speech clear and coherent. Psychiatric: Cooperative, Appropriate mood & affect. Impression and Plan Course: Worsening Plan: Patient's nasal swab was positive for influenza b, chest x-ray was obtained and results are as noted above, and as their symptoms have a duration of less than 48 hours they will be sent home with antiviral medication and instructed to increase her fluid intake. Patient was advised to follow-up with her primary care provider for any persisting symptoms or additional concerns in 7-10 days. Patient agrees plan of care, questions were encouraged and answered. Patient Instructions: Influenza B CLINICAL IMPRESSION Diagnosis/Annotation: ED Dx Name:Influenza B Code:J10.1 Dispostion: discharged Type: home ATTESTATION CRITICAL CARE TIME Is this a critically ill patient: no Electronic Signatures: Fredo Bales (DISTRICT [facility]) (Signed 11-Dec-2019 16:50) Authored: Provider Note - ED v2 Last Updated: 11-Dec-2019 16:50 by Fredo Bales (DISTRICT [employer]) Normal [facility] Hemoglobin A1con 08-07-2019 HbA1c (Bld) [Mass fraction] 5.0 % Normal 4.3-5.6 [facility] Comment on above: Performed By: #### H BA1C #### [facility] Routine Lab [address], [place] [id number] HbA1c (Bld) [Mass fraction] 97 mg/dL Normal [facility] Comment on above: Performed By: #### H BA1C #### [facility] Routine Lab [address], [place] [address] Encounters Encounter Date Encounter Type Care Provider Facility [facility]: [facility]: 08-12-2022 End: 08-12-2022 ambulatory DANYEL GALVEZ Facility:[facility] Start: 08-12-2022 End: 08-12-2022 Patient encounter procedure Yassine Schreiber OD Work Phone: Ophthalmology Comment on above: Acute foreign body o f right conjunctiva, initial encounter (Primary Dx); Corneal epithelial defect Plan of Treatment Date Care Activity Detail Author Start: 07-14-2022 Influenza vaccination INFLUENZA (#1) [facility] Start: 11-13-2021 DEPRESSION ASSESSMENT DEPRESSION ASS ESSMENT [facility] Start: 2019 PROSTATE CANCER SCRE ENING DISCUSSION PROSTATE CANCER SCREENING DISCUSSION [facility] Start: 2014 SHINGRIX VACCINE (1 of 2) SHINGRIX V ACCINE (1 of 2) [facility] Start: 2009 COLOGUARD (FIT-DNA) COLOGUARD (FIT-D NA) [facility] Start: 2009 Colonoscopy COLONOSCOPY [facility] Start: 2009 COLORECTAL CANCER SCREENING COLORECTAL CANCER SCREENING [facility] Start: [address] COLONOGRAPHY [facility] Start: 2009 DIABETES SCREEN DIABETES SCREEN [facility] Start: 2009 FECAL OCCULT BLOOD FECAL OCCULT BLOO D [facility] Start: 2009 SIGMOIDOSCOPY SIGMOIDOSCOPY [facility] Start: 1999 LIPID SCREEN LIPID SCREEN [facility] Start: 1983 Urine microalbumin profile DTAP,TDAP ,TD (1 - Tdap) [facility] Start: 1982 HEPATITIS C SCREENING HEPATITIS C SC REENING [facility] Start: 1982 HIV SCREENING HIV SCREENING [facility] Start: 05-08-1965 COVID-19 VACCINE (#1) COVID-19 VACCI NE (#1) [facility] Start: 1964 HEPATITIS B (1 of 3 - 3-dose series) HEPATITIS B (1 of 3 - 3-dose series) [facility] Social History Date Type Detail Facility Start: 08-12-2022 Tobacco smoking stat us NHIS Ex-smoker [facility] History of tobacco use Current smoker [facility] History of tobacco use Cigarette Smoker [facility] Start: 08-12-2022 Tobacco use and exposure Smoke less tobacco non-user [facility] Start: 08-12-2022 Alcohol intake Current drinke r of alcohol (finding) [facility] Start: 08-12-2022 [facility] Start: 08-12-2022 Tobacco Comment Social smoker [facility] Start: 1965 Sex Assigned At Not on file [facility] Start: 08-02-2022 End: 08-12-2022 Exposure to SARS-CoV-2 (event) Not sure [facility] Progress note 08-12-2022 Note Date & Type Note Facility 08-12-2022 Note HNO ID: [id number] Author: Yassine Schreiber OD Service: ? Author Type: GLASS RIBBON MACHINE OPERATOR Type: Progress Notes Filed: 08/12/2022 2:26 PM Note Text: ASSESSMENT/PLAN: 1. Acute foreign body of right conjunctiva, initial encounter - ICD9: 930.1, E914, ICD10: T15.11XA (primary diagnosis) 2. 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 Applied a bandage contact lens and prescribed drops to be used four times a day for one week. Current Ophthalmic Meds moxifloxacin (VIGAMOX) 0.5 % ophthalmic solution Use 1 Drop in the right eye four times daily for 7 days. Systane Complete Preservative Free as needed. Encouraged the use of tylenol and cool compresses as needed for comfort. Return to the office on Monday, sooner if it worsens. Yassine Schreiber, MARGARITA I have confirmed and edited as necessary the relevant ophthalmic history, ROS, and the neuro exam findings as obtained by others. I have seen and examined this patient. [facility] Instructions 08-12-2022 Patient Instructions Note Date & Type Note Facility 08-12-2022 Instructions Yassine Schreiber, MARGARITA - 08/12/2022 2:22 PM EDT ASSESSMENT/PLAN: 1. Acute foreign body of right conjunctiva, initial encounter - ICD9: 930.1, E914, ICD10: T15.11XA (primary diagnosis) 2. 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 Applied a bandage contact lens and prescribed drops to be used four times a day for one week. Current Ophthalmic Meds moxifloxacin (VIGAMOX) 0.5 % ophthalmic solution Use 1 Drop in the right eye four times daily for 7 days. Systane Complete Preservative Free as needed. Encouraged the use of tylenol and cool compresses as needed for comfort. Return to the office on Monday, sooner if it worsens. [phone] if issues worsen documented in this encounter [facility] History of Present illness Narrative 08-12-2022 Yassine Schreiber, OD - 08/12/2022 1:36 PM EDT Note Date & Type Note Facility 08-12-2022 History of Presen t illness Narrative ASSESSMENT/PLAN: 1. Acute foreign body of right conjunctiva, initial encounter - ICD9: 930.1, E914, ICD10: T15.11XA (primary diagnosis) 2. 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 Applied a bandage contact lens and prescribed drops to be used four times a day for one week. Current Ophthalmic Meds moxifloxacin (VIGAMOX) 0.5 % ophthalmic solution Use 1 Drop in the right eye four times daily for 7 days. Systane Complete Preservative Free as needed. Encouraged the use of tylenol and cool compresses as needed for comfort. Return to the office on Monday, sooner if it worsens. Yassine Schreiber, OD I have confirmed and edited as necessary the relevant ophthalmic history, ROS, and the neuro exam findings as obtained by others. I have seen and examined this patient. documented in this encounter [facility] Evaluation note Note Date & Type Note Facility Evaluation note Diagnosis Acute foreign body of right conjunctiva, initial encounter- Primary Corneal epithelial defect Corneal membrane change, unspecified documented in this encounter [facility] Summary Purpose Family History No Family History Records FoundNo Family History Records FoundNo Family History Records FoundNo Family History Records Found Advance Directives No Advanced Directives Records FoundNo Advanced Directives Records FoundNo Advanced Directives Records FoundNo Advanced Directives Records Found Medications Administered Section Active Administered Medications - up to 3 most recent administrations Medication Order MAR Action Action Date Dose Rate Site PHENYLephrine 2.5 % 1 Drop (AK-DILATE, LEONARD-SYNEPHRINE) 1 Drop, BOTH EYES, DIRECTED, Starting on Mon08/12/22 at 1330, Until 08/13/22 at 0129, Administer for dilation PROTECT FROM LIGHT Given 08/12/2022 1:30 PM EDT 1 Drop proparacaine 0.5 % 1 Drop (ALCAINE) 1 Drop, BOTH EYES, DIRECTED, Starting on Mon08/12/22 at 1330, Until 08/13/22 at 0129, Administer for pneumo tonometry, tonopen tonometry, or pachymetry. In the event of a proparacaine shortage, administer tetracaine 0.5% ophthalmic drops 1 drop in the left eye as directed for pneumo tonometry, tonopen tonometry, or pachymetry Given 08/12/2022 1:30 PM EDT 1 Drop Inactive Administered Medications - up to 3 most recent administrations Medication Order MAR Action Action Date Dose Rate Site cyclopentolate 1 % 1 Drop (CYCLOGYL) 1 Drop, RIGHT EYE, ONCE, 1 dose, On Mon08/12/22 at 1400, FOR THE EYE Given 08/12/2022 2:00 PM EDT 1 Drop tropicamide 1 % 1 Drop (MYDRIACYL) 1 Drop, BOTH EYES, ONCE, 1 dose, On Mon08/12/22 at 1400, FOR THE EYE Given 08/12/2022 2:00 PM EDT 1 Drop Additional Source Comments (unrecognized sect ion and content) No Status Records FoundNo Status Records FoundNo Status Records FoundNo Status Records Found INFORMATION SOURCE (unrecogn ized section and content) DATE CREATED AUTHOR 08/11/2019 [facility] DATE CREATED AUTHOR AUTHOR'S ORGANIZ ATION 12/13/2019 [facility] DATE CREATED AUTHOR AUTHOR'S ORGANIZ ATION 08/16/2022 [facility] DATE CREATED AUTHOR AUTHOR'S ORGANIZ ATION [facility] Source Comments (unrecognize d section and content) In the event this informatio n is protected by the Federal Confidentiality of Alcohol and Drug Abuse Patient Records regulations: The Federal rules restrict any use of the information to criminally investigate or prosecute any alcohol or drug abuse patient.[facility] Reason for Visit (unrecogniz ed section and content) Reason Comments Eye Pain Right Eye Red Eye Right Eye Foreign Body Sensation Right eye Blurred Vision Right Eye Specialty Diagnoses / Procedures Referred By Jadiel quan Referred To Contact OPHTHALMOLOGY Diagnoses metal in right eye Procedures OFFICE/OUTPATIENT NEW MODERATE MDM 45-59 MINUTES Self Yassine Schreiber, OD [address] [id number] Referral ID Status Reason Start Date Expiration Date V isits Requested Visits Authorized [id number] Closed Financial Clearance Required - Self Pay Patient Cleared - True Self-Pay required payment collected 08/12/2022 08/12/2022 1 1 Care Teams (unrecognized sec tion and content) Quartz Orientator Relationship Specialty Start Date End Date Danyel Galvez MD PCP - General Internal Medicine 06/06/19 FOR RECORDS PERTAINING TO PATIENTS WHO ARE OR HAVE BEEN ENROLLED IN A CHEMICAL DEPENDENCY/SUBSTANCEABUSE PROGRAM, SOME INFORMATION MAY BE OMITTED. This clinical summary was aggregated from multiple sources. Caution should be exercised in using it in the provision of clinical care. This summary normalizes information from multiple sources, and as a consequence, information in this document may materially change the coding, format and clinical context of patient data. In addition, data may be omitted in some cases. CLINICAL DECISIONS SHOULD BE BASED ON THE PRIMARY CLINICAL RECORDS. [employer] provides no warranty or guarantee of the accuracy or completeness of information in this document.
== END | disposition home or self-care (01) ==
LOC: VSLAB 10:25
PROVIDERS: PCP Nurse Practitioner Family; Visit Provider Family Medicine
DX: Z12.5 Encounter for screening for malignant neoplasm of prostate (principal); R60.0 Localized edema; Z13.1 Encounter for screening for diabetes mellitus; E03.9 Hypothyroidism, unspecified; M10.9 Gout, unspecified; I10 Essential (primary) hypertension
CPT/HCPCS: 36415; 80053; 80061; 83036; 83880; 84153; 84439; 84443; 84550; 85025; G0103

== ENCOUNTER → 2025-10-20 | Outpatient (CLI) | payer MEDICAID, SELFPAY ==
[2025-10-20 12:33] LABS: Hematocrit 47.1 % (40-54); Hemoglobin 15.6 g/dL (13.0-16.5); Immature Granulocytes Count 0.040 X10^3/uL (0.0-0.0); Mean Corp Hgb Conc 33.1 g/dL (32-36); Mean Corpuscular Volume 87.5 fL (80-94); Mean Platelet Vol. 9.5 fl (6.2-12.0); NRBC Flagged by Analyzer 0 % (0-5); Platelet Count 193 K/mm3 (150-450); RBC Distribution Width CV 13.6 % (11.6-14.6); RBC Distribution Width SD 43.8 fl (35.1-43.9); Red Blood Count 5.38 M/mm3 (4.6-6.2); White Blood Count 9.0 K/mm3 (4.4-11.0)
[2025-10-20 12:47] LABS: AST(SGOT) 22 U/L (<=37); Alanine Aminotransfer ALT/SGPT 34 U/L (<=46); Albumin, Serum 4.5 g/dL (3.4-4.8); Alkaline Phosphatase 105 U/L (40-129); Anion Gap 11 (5-15); BUN 17 mg/dL (4-19); BUN/Creat Ratio 13.0 RATIO (10-20); Calcium,Total 9.9 mg/dL (7.6-11.0); Carbon Dioxide 26.2 mmol/L (21.0-32.0); Chloride 99 mmol/L (98-108); Cholesterol 188 mg/dL (<=200); Globulin 2.9 g/dL (2.2-4.2); Glucose 112 mg/dL (70-99); Low Density Lipoprotein Calc. 122 mg/dL; Potassium 4.3 mmol/L (3.3-5.1); Triglycerides 166 mg/dL; Very Low Density Lipoprotein 33 mg/dL (5-40); cholesterol:hdl ratio screen 5.14
== END | disposition home or self-care (01) ==
LOC: VSLAB 09:16
PROVIDERS: PCP Nurse Practitioner Family
DX: I10 Essential (primary) hypertension (principal)
CPT/HCPCS: 36415; 80053; 80061; 85025